=== PATIENT | female | born 1980 | race Caucasian/White ===

== ENCOUNTER → 2016-07-28 | Outpatient (CLI) | payer OTHER ==
[~2016-07-28] MED LIST: EFFE150C PO; FLUO10CA8 PO; GABA-279 PO; IMIT6INJ SC; OMEP20TA PO; TOPA100T8 PO; VENL75CA PO; ZOFR20TA PO
--- NOTE | 2016-07-28 15:45 | REP ---
CT abdomen and pelvis without contrast, 07/28/2016: Indication: Calcium oxalate crystals in urine Comparison: CT abdomen/pelvis 06/30/2016. Findings: Lung bases are clear bilaterally. Visualized portions of the heart and pericardium are normal. Liver, spleen, pancreas, gallbladder, and adrenal glands are normal. Kidneys are without hydronephrosis or obstructing ureteral calculi bilaterally. There is a nonobstructing 2.6 mm calculus within the mid pole right kidney. Stomach and small bowel are within normal limits. Terminal ileum and appendix are without inflammation. There are a few small appendicoliths. Abdominal aorta is of normal course and caliber. There are no pathologically enlarged retroperitoneal nodes. Bladder is normal. The uterus is absent. Previous 3.3 cm right ovarian cyst is smaller, now 1.8 cm diameter. There is no free fluid in cul-de-sac and no free intraperitoneal air. There is moderate retained colonic stool. Impression: 1. Nonobstructing 2.6 mm calculus within the right kidney. No hydronephrosis or obstructing ureteral calculi bilaterally. 2. There are a few appendicoliths yet no evidence of appendiceal inflammation. 3. No acute intra-abdominal or pelvic s pathology. Signed by Lucy Fields MD 07/28/2016 08:34 P
== END ==
LOC: M RAD 08:24
PROVIDERS: ATTEND Internal Medicine
DX: R30.0 Dysuria (principal)

== ENCOUNTER 2016-08-04 11:24 | Emergency (ER) | payer OTHER ==
[2016-08-04] MEDS ORDERED: NAPROXEN 250 MG TAB As Ordered ONE (12:06)
[2016-08-04] MEDS ORDERED: predniSONE 20 MG TAB As Ordered ONE (12:07)
--- NOTE | 2016-08-04 12:59 | REP ---
Clinical: Trauma. Comparison: 08/11/2007 . Technique: AP, lateral, bilateral oblique, and coned-down views. Findings: Alignment and lordosis is maintained. The vertebral bodies including transverse process and spinous processes are intact and normal. There is no evidence for acute fracture / compression injury or subluxation. No evidence for spondylolysis or spondylolisthesis. No significant degenerative change is noted. Impression: Normal lumbosacral spine radiograph series. Signed by Kwabena Duncan MD 08/04/2016 12:50 P
--- NOTE | 2016-08-04 13:22 | EDDOCDS ---
Physician Documentation [facility] Name: Seema Valenzuela Age: 36 yrs Sex: Female : 1980 Arrival Date: 08/04/2016 Time: 11:24 Bed TR2 Private MD: Elmer Decker Disposition: 08/04/16 13:04 Discharged to Home/Self Care. Impression: Low back pain - Acute, Sciatica, right side. - Condition is Stable. - Discharge Instructions: Sciatica, Back Pain, Adult, [id number]. - Prescriptions for Mobic 7.5 mg Oral Tablet - take 1 tablet by ORAL route once daily take with food; 20 tablet. Prednisone 20 mg Oral Tablet - take 3 tablet by ORAL route once daily for 5 days; 15 tablet. Cyclobenzaprine 10 mg Oral Tablet - take 1 tablet by ORAL route 3 times per day As needed Will cause drowsiness, do not take while driving/operating heavy machinery.; 15 tablet. Percocet 5- 325 mg Oral Tablet - take 1 tablet by ORAL route every 6 hours As needed MDD: 4 tabs; 10 tablet. - Medication Reconciliation, Local Pharmacy Hours form. - Follow up: [facility]; When: Call to arrange an appointment; Reason: Further diagnostic work-up, Recheck today's complaints, Continuance of care. Follow up: Elmer Decker; When: 1 - 2 days; Reason: Recheck today's complaints, Continuance of care. Follow up: Emergency Department; Reason: Worsening of conditions. - Problem is new. - Symptoms have improved. Historical: - Allergies: no known allergies; - Home Meds: 1. verapamil Unknown Oral 2. pantoprazole oral 1 tab once daily 3. topiramate oral once daily 4. sumatriptan succinate 6 mg/0.5 mL Sub-Q pnij as needed - PMHx: Anxiety; GERD; Migraines; Depression; - PSHx: Hysterectomy; - Social history: Smoking status: Patient uses tobacco products, heavy tobacco smoker. No barriers to communication noted, The patient speaks fluent Indonesian, Speaks appropriately for age. - Family history: Not pertinent. - : The pt / caregiver states he / she is not on anticoagulants. Home medication list is obtained from the patient. - Exposure Risk Screening:: None identified. 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 4 in. (162.56 cm) (R); Pain 04/04; 13:16 BP 123 / 67; Pulse 82; Resp 18; Temp 97.6(O); Pulse Ox 98% on R/A; dwg 11:26 Body Mass Index 21.97 (58.06 kg, 162.56 cm) ct3 MDM: 12:01 Naproxen 500 mg PO once; administer with food or milk ordered. ef1 12:01 Ice Pack ordered. ef1 12:01 predniSONE 60 mg PO once; administer with food or milk ordered. ef1 12:02 Spine. Lumbosacral, Complete Ordered. EDNY 12:14 Financial registration complete. mm15 12:40 [facility] Payment Agreement was scanned into [employer] and attached to record. mm15 Administered Medications: 12:14 Drug: Naproxen 500 mg [naproxen 250 mg tablet (2 tabs)] Route: PO; dwg 13:17 Follow up: Response: Pain is decreased dwg 12:14 Drug: predniSONE 60 mg [prednisone 20 mg tablet (3 tabs)] Route: PO; dwg 13:17 Follow up: Response: Pain is decreased dw Signatures: Dispatcher [employer] EDNY Terrence Stinson RN RN dwg Jennifer Beatty PA-C PARuizC ef1 Katelyn Norris RN RN hs1 Eusebio Mcclendon mm15 The chart was reviewed and I authenticate all verbal orders and agree with the evaluation and treatment provided.Corrections: (The following items were deleted from the chart) 11:33 11:32 Allergies: no known allergies; hs1 hs1 11:33 11:32 PSHx: none; hs1 hs1 Attachments: 12:40 [facility] Payment Agreement mm15 MTDD
--- NOTE | 2016-08-04 13:22 | EDDOCDS ---
Nurse's Notes [facility] Name: Seema Valenzuela Age: 36 yrs Sex: Female : 1980 Arrival Date: 08/04/2016 Time: 11:24 Bed TR2 Private MD: Elmer Decker Diagnosis: Low back pain-Acute;Sciatica, right side Presentation: 08/04 11:30 Presenting complaint: Patient states: injury to back on Wednesday. 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 Acute neurological deficits are not present. Mechanism of Injury: Fall and Lifting. Adult Sepsis Screening: The patient does not have new or worsening altered mentation. Patient's respiratory rate is less than 22. Systolic blood pressure is greater than 100. Patient has a qSOFA score of 0- Negative Sepsis Screen. Suicide/Homicide risk assessment- the patient denies having any suicidal and/or homicidal ideations and does not present with any other emotional, behavioral or mental health complaints. Status: Patient is not a shared services manager or dependent. Transition of care: patient was not received from another setting of care. 11:30 Acuity: TIARA Level 4 hs1 11:30 Method Of Arrival: Walkin/Carried/Asstd hs1 Triage Assessment: 11:33 General: Appears in no apparent distress, Behavior is appropriate for age, cooperative. hs1 Pain: Location: right low back Pain currently is 9 out of 10 on a pain scale. Pain radiates to right gluteus emerson and right leg Quality of pain is described as sharp, shooting. HIV screening NA for this visit Offered previously. Neurological: Level of Consciousness is awake, alert, obeys commands. Derm: Skin is pink, warm & dry. normal. Musculoskeletal: Range of motion intact in all extremities. 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 verapamil Unknown Oral 2. pantoprazole oral 1 tab once daily 3. topiramate oral once daily 4. sumatriptan succinate 6 mg/0.5 mL Sub-Q pnij as needed - PMHx: Anxiety; GERD; Migraines; Depression; - PSHx: Hysterectomy; - Social history: Smoking status: Patient uses tobacco products, heavy tobacco smoker. No barriers to communication noted, The patient speaks fluent Norwegian, Speaks appropriately for age. - Family history: Not pertinent. - : The pt / caregiver states he / she is not on anticoagulants. Home medication list is obtained from the patient. - Exposure Risk Screening:: None identified. Screenin:16 Screening information is obtained from the patient. Fall risk: No risks identified. dwg Assistance ADL's: requires no assistance with activities of daily living. Abuse/DV Screen: The patient / caregiver reports he/she is: not in a situation that causes fear, pain or injury. Nutritional screening: No deficits noted. Advance Directives: Currently, there is no health care proxy. There is no active DNR order. There is no living will. There is no Power of Accounts Payable Administrator. Advance directive information has not previously been placed in an [facility] medical record. Further advance directive information is declined. home support is adequate. Assessment: 12:14 General: Appears in no apparent distress, uncomfortable, Behavior is cooperative, dwg pleasant. Pain: Pain currently is 7 out of 10 on a pain scale. Neurological: Level of Consciousness is awake, alert, Oriented to person, place, time. Respiratory: Airway is patent Respiratory effort is even, unlabored, Respiratory pattern is regular, symmetrical. Musculoskeletal: Reports pain in lumbar area, left low back and right low back Low back pain since falling Wednesday, also heavy lifting on Wednesday and Wednesday. Vital Signs: 11:26 BP 113 / 79; Pulse 88; Resp 18; Temp 97.8(O); Pulse Ox 100% on R/A; Weight 58.06 kg ct3 (R); Height 5 ft. 4 in. (162.56 cm) (R); Pain 9/10; 13:16 BP 123 / 67; Pulse 82; Resp 18; Temp 97.6(O); Pulse Ox 98% on R/A; dwg 11:26 Body Mass Index 21.97 (58.06 kg, 162.56 cm) ct3 Vitals: 11:26 Log In Time: August 04, 2016 at 11:23. ct3 ED Course: 11:25 Patient visited by Dacia Das PCA. ct3 11:25 Elmer Decker MD is Private Physician. ct3 11:25 Patient moved to Waiting ct3 11:26 Patient moved to Pre RCE ct3 11:31 Triage Initiated hs1 11:54 [facility] ef1 11:54 Sherine Flowers MD is Attending Physician. ef1 11:54 Patient visited by Jennifer Beatty PA-C. ef1 11:54 Patient moved to Triage 3 ms18 12:13 Patient moved to TR2 ms18 12:40 [facility] Payment Agreement was scanned into [employer] and attached to record. mm15 13:00 Patient visited by Jennifer Beatty PA-C. ef1 13:04 [facility]. ef1 13:04 Elmer Decker MD is Referral Physician. ef1 13:16 Spine. Lumbosacral, Complete Returned. EDMS 13:19 No IV's were initiated during this patient's visit. No procedures done that require dwg assistance. 13:20 The patient / caregiver is instructed regarding the plan of care and ED course. dwg Administered Medications: 12:14 Drug: Naproxen 500 mg [naproxen 250 mg tablet (2 tabs)] Route: PO; dwg 13:17 Follow up: Response: Pain is decreased dwg 12:14 Drug: predniSONE 60 mg [prednisone 20 mg tablet (3 tabs)] Route: PO; dwg 13:17 Follow up: Response: Pain is decreased dwg Order Results: Radiology Order: Spine. Lumbosacral, Complete Test: Spine. Lumbosacral, Complete REASON FOR EXAMINATION: Trauma; Clinical: Trauma.; ; Comparison: 08/11/2007 .; ; Technique: AP, lateral, bilateral oblique, and coned-down views.; ; Findings: Alignment and lordosis is maintained. The vertebral bodies including; transverse process and spinous processes are intact and normal. There is no; evidence for acute fracture / compression injury or subluxation. No evidence for; spondylolysis or spondylolisthesis. No significant degenerative change is; noted.; ; Impression:; Normal lumbosacral spine radiograph series.; ; ; Signed by; Kwabena Duncan MD 08/04/2016 12:50 P; Outcome: 13:04 Discharge ordered by Provider. ef1 13:18 Discharge Assessment: Patient awake, alert and oriented x 3. No cognitive and/or dwg functional deficits noted. Patient verbalized understanding of disposition instructions. patient administered narcotics - no. The following High Risk Discharge criteria are identified: None. Condition: good Condition: stable. No special radiology studies were completed. 13:19 Property sent home with patient. [facility] 13:21 Patient left the ED. [facility] Signatures: Dispatcher [employer] EDTerrence Arteaga, GRACE RN dwg Jennifer Beatty, PARuizC PA-C ef1 Katelyn Norris RN RN hs1 Dacia Das, DIANA MALLET CUTTER ct3 Eusebio Mcclendon mm15 Francy Villeda RN RN ms18 Corrections: (The following items were deleted from the chart) 11:33 11:32 Allergies: no known allergies; hs1 hs1 :33 11:32 PSHx: none; hs1 hs1 MTDD
--- NOTE | 2016-08-06 14:22 | EDDOCDS ---
Nurse's Notes [facility] Name: Seema Valenzuela Age: 36 yrs Sex: Female : 1980 Arrival Date: 08/04/2016 Time: 11:24 Bed TR2 Private MD: Elmer Decker Diagnosis: Low back pain-Acute;Sciatica, right side Presentation: 08/04 11:30 Presenting complaint: Patient states: injury to back on Wednesday. 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 Acute neurological deficits are not present. Mechanism of Injury: Fall and Lifting. Adult Sepsis Screening: The patient does not have new or worsening altered mentation. Patient's respiratory rate is less than 22. Systolic blood pressure is greater than 100. Patient has a qSOFA score of 0- Negative Sepsis Screen. Suicide/Homicide risk assessment- the patient denies having any suicidal and/or homicidal ideations and does not present with any other emotional, behavioral or mental health complaints. Status: Patient is not a neighborhood service center director or dependent. Transition of care: patient was not received from another setting of care. 11:30 Acuity: TIARA Level 4 hs1 11:30 Method Of Arrival: Walkin/Carried/Asstd hs1 Triage Assessment: 11:33 General: Appears in no apparent distress, Behavior is appropriate for age, cooperative. hs1 Pain: Location: right low back Pain currently is 9 out of 10 on a pain scale. Pain radiates to right gluteus emerson and right leg Quality of pain is described as sharp, shooting. HIV screening NA for this visit Offered previously. Neurological: Level of Consciousness is awake, alert, obeys commands. Derm: Skin is pink, warm & dry. normal. Musculoskeletal: Range of motion intact in all extremities. 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 verapamil Unknown Oral 2. pantoprazole oral 1 tab once daily 3. topiramate oral once daily 4. sumatriptan succinate 6 mg/0.5 mL Sub-Q pnij as needed - PMHx: Anxiety; GERD; Migraines; Depression; - PSHx: Hysterectomy; - Social history: Smoking status: Patient uses tobacco products, heavy tobacco smoker. No barriers to communication noted, The patient speaks fluent Azerbaijani, Speaks appropriately for age. - Family history: Not pertinent. - : The pt / caregiver states he / she is not on anticoagulants. Home medication list is obtained from the patient. - Exposure Risk Screening:: None identified. Screenin:16 Screening information is obtained from the patient. Fall risk: No risks identified. dwg Assistance ADL's: requires no assistance with activities of daily living. Abuse/DV Screen: The patient / caregiver reports he/she is: not in a situation that causes fear, pain or injury. Nutritional screening: No deficits noted. Advance Directives: Currently, there is no health care proxy. There is no active DNR order. There is no living will. There is no Power of Forest[employer]. Advance directive information has not previously been placed in an [facility] medical record. Further advance directive information is declined. home support is adequate. Assessment: 12:14 General: Appears in no apparent distress, uncomfortable, Behavior is cooperative, dwg pleasant. Pain: Pain currently is 7 out of 10 on a pain scale. Neurological: Level of Consciousness is awake, alert, Oriented to person, place, time. Respiratory: Airway is patent Respiratory effort is even, unlabored, Respiratory pattern is regular, symmetrical. Musculoskeletal: Reports pain in lumbar area, left low back and right low back Low back pain since falling Wednesday, also heavy lifting on Wednesday and Wednesday. Vital Signs: 11:26 BP 113 / 79; Pulse 88; Resp 18; Temp 97.8(O); Pulse Ox 100% on R/A; Weight 58.06 kg ct3 (R); Height 5 ft. 4 in. (162.56 cm) (R); Pain 9/10; 13:16 BP 123 / 67; Pulse 82; Resp 18; Temp 97.6(O); Pulse Ox 98% on R/A; dwg 11:26 Body Mass Index 21.97 (58.06 kg, 162.56 cm) ct3 Vitals: 11:26 Log In Time: August 04, 2016 at 11:23. ct3 ED Course: 11:25 Patient visited by Dacia Das PCA. ct3 11:25 Elmer Decker MD is Private Physician. ct3 11:25 Patient moved to Waiting ct3 11:26 Patient moved to Pre RCE ct3 11:31 Triage Initiated hs1 11:54 [facility] ef1 11:54 Sherine Flowers MD is Attending Physician. ef1 11:54 Patient visited by Jennifer Beatty PA-C. ef1 11:54 Patient moved to Triage 3 ms18 12:13 Patient moved to TR2 ms18 12:40 [facility] Payment Agreement was scanned into [employer] and attached to record. mm15 13:00 Patient visited by Jennifer Beatty PA-C. ef1 13:[facility]. ef1 13:04 Elmer Decker MD is Referral Physician. ef1 13:16 Spine. Lumbosacral, Complete Returned. EDMS 13:19 No IV's were initiated during this patient's visit. No procedures done that require dwg assistance. 13:20 The patient / caregiver is instructed regarding the plan of care and ED course. dwg 14:53 T-Sheet-- Draft Copy was scanned into [employer] and attached to record. gb 14:53 Radiology Report was scanned into [employer] and attached to record. gb Administered Medications: 12:14 Drug: Naproxen 500 mg [naproxen 250 mg tablet (2 tabs)] Route: PO; dwg 13:17 Follow up: Response: Pain is decreased dwg 12:14 Drug: predniSONE 60 mg [prednisone 20 mg tablet (3 tabs)] Route: PO; dwg 13:17 Follow up: Response: Pain is decreased dwg Order Results: Radiology Order: Spine. Lumbosacral, Complete Test: Spine. Lumbosacral, Complete REASON FOR EXAMINATION: Trauma; Clinical: Trauma.; ; Comparison: 08/11/2007 .; ; Technique: AP, lateral, bilateral oblique, and coned-down views.; ; Findings: Alignment and lordosis is maintained. The vertebral bodies including; transverse process and spinous processes are intact and normal. There is no; evidence for acute fracture / compression injury or subluxation. No evidence for; spondylolysis or spondylolisthesis. No significant degenerative change is; noted.; ; Impression:; Normal lumbosacral spine radiograph series.; ; ; Signed by; Kwabena Duncan MD 08/04/2016 12:50 P; Outcome: 13:04 Discharge ordered by Provider. ef1 13:18 Discharge Assessment: Patient awake, alert and oriented x 3. No cognitive and/or dwg functional deficits noted. Patient verbalized understanding of disposition instructions. patient administered narcotics - no. The following High Risk Discharge criteria are identified: None. Condition: good Condition: stable. No special radiology studies were completed. 13:19 Property sent home with patient. dwg 13:21 Patient left the ED. dwg Signatures: Dispatcher [employer] EDTerrence Arteaga, RN RN dwg Tamara Hernandez, Reg Reg Jennifer Lundberg, PA-C PA-C ef1 Katelyn Norris RN RN hs1 Dacia Das, CREDIT COORDINATOR CREDIT COORDINATOR ct3 Eusebio Mcclendon mm15 Francy Villeda,RN RN ms18 Corrections: (The following items were deleted from the chart) 11:33 11:32 Allergies: no known allergies; hs1 hs1 11:33 11:32 PSHx: none; hs1 hs1 Chart Complete MTDD
--- NOTE | 2016-08-06 14:22 | EDDOCDS ---
Physician Documentation [facility] Name: Seema Valenzuela Age: 36 yrs Sex: Female : 1980 Arrival Date: 08/04/2016 Time: 11:24 Bed TR2 Private MD: Elmer eDcker Disposition: 08/04/16 13:04 Discharged to Home/Self Care. Impression: Low back pain - Acute, Sciatica, right side. - Condition is Stable. - Discharge Instructions: Sciatica, Back Pain, Adult, [id number]. - Prescriptions for Mobic 7.5 mg Oral Tablet - take 1 tablet by ORAL route once daily take with food; 20 tablet. Prednisone 20 mg Oral Tablet - take 3 tablet by ORAL route once daily for 5 days; 15 tablet. Cyclobenzaprine 10 mg Oral Tablet - take 1 tablet by ORAL route 3 times per day As needed Will cause drowsiness, do not take while driving/operating heavy machinery.; 15 tablet. Percocet 5- 325 mg Oral Tablet - take 1 tablet by ORAL route every 6 hours As needed MDD: 4 tabs; 10 tablet. - Medication Reconciliation, Local Pharmacy Hours form. - Follow up: [facility]; When: Call to arrange an appointment; Reason: Further diagnostic work-up, Recheck today's complaints, Continuance of care. Follow up: Elmer Decker; When: 1 - 2 days; Reason: Recheck today's complaints, Continuance of care. Follow up: Emergency Department; Reason: Worsening of conditions. - Problem is new. - Symptoms have improved. Historical: - Allergies: no known allergies; - Home Meds: 1. verapamil Unknown Oral 2. pantoprazole oral 1 tab once daily 3. topiramate oral once daily 4. sumatriptan succinate 6 mg/0.5 mL Sub-Q pnij as needed - PMHx: Anxiety; GERD; Migraines; Depression; - PSHx: Hysterectomy; - Social history: Smoking status: Patient uses tobacco products, heavy tobacco smoker. No barriers to communication noted, The patient speaks fluent Danish, Speaks appropriately for age. - Family history: Not pertinent. - : The pt / caregiver states he / she is not on anticoagulants. Home medication list is obtained from the patient. - Exposure Risk Screening:: None identified. 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 4 in. (162.56 cm) (R); Pain 04/04; 13:16 BP 123 / 67; Pulse 82; Resp 18; Temp 97.6(O); Pulse Ox 98% on R/A; dwg 11:26 Body Mass Index 21.97 (58.06 kg, 162.56 cm) ct3 MDM: 12:01 Naproxen 500 mg PO once; administer with food or milk ordered. ef1 12:01 Ice Pack ordered. ef1 12:01 predniSONE 60 mg PO once; administer with food or milk ordered. ef1 12:02 Spine. Lumbosacral, Complete Ordered. EDCA 12:14 Financial registration complete. mm15 12:40 [facility] Payment Agreement was scanned into [employer] and attached to record. mm 14:53 T-Sheet-- Draft Copy was scanned into [employer] and attached to record. gb 14:53 Radiology Report was scanned into [employer] and attached to record. Administered Medications: 12:14 Drug: Naproxen 500 mg [naproxen 250 mg tablet (2 tabs)] Route: PO; [facility] 13:17 Follow up: Response: Pain is decreased [facility] 12:14 Drug: predniSONE 60 mg [prednisone 20 mg tablet (3 tabs)] Route: PO; [facility] 13:17 Follow up: Response: Pain is decreased dw Signatures: Dispatcher [employer] EDMS Terrence Stinson, RN RN dwg Tamara Hernandez, Reg Reg Jennifer Lundberg, PA-C PA-C ef1 Katelyn Norris RN RN hs1 Eusebio Mcclendon mm15 The chart was reviewed and I authenticate all verbal orders and agree with the evaluation and treatment provided.Corrections: (The following items were deleted from the chart) 11:33 11:32 Allergies: no known allergies; hs1 hs1 11:33 11:32 PSHx: none; hs1 hs1 Attachments: 12:40 [facility] Payment Agreement mm15 14:53 T-Sheet-- Draft Copy gb Chart Complete MTDD
--- NOTE | 2016-08-06 14:22 | EDDOCDS ---
Physician Documentation [facility] Name: Seema Valenzuela Age: 36 yrs Sex: Female : 1980 Arrival Date: 08/04/2016 Time: 11:24 Bed TR2 Private MD: Elmer Decker Disposition: 08/04/16 13:04 Discharged to Home/Self Care. Impression: Low back pain - Acute, Sciatica, right side. - Condition is Stable. - Discharge Instructions: Sciatica, Back Pain, Adult, [id number]. - Prescriptions for Mobic 7.5 mg Oral Tablet - take 1 tablet by ORAL route once daily take with food; 20 tablet. Prednisone 20 mg Oral Tablet - take 3 tablet by ORAL route once daily for 5 days; 15 tablet. Cyclobenzaprine 10 mg Oral Tablet - take 1 tablet by ORAL route 3 times per day As needed Will cause drowsiness, do not take while driving/operating heavy machinery.; 15 tablet. Percocet 5- 325 mg Oral Tablet - take 1 tablet by ORAL route every 6 hours As needed MDD: 4 tabs; 10 tablet. - Medication Reconciliation, Local Pharmacy Hours form. - Follow up: [facility]; When: Call to arrange an appointment; Reason: Further diagnostic work-up, Recheck today's complaints, Continuance of care. Follow up: Elmer Decker; When: 1 - 2 days; Reason: Recheck today's complaints, Continuance of care. Follow up: Emergency Department; Reason: Worsening of conditions. - Problem is new. - Symptoms have improved. Historical: - Allergies: no known allergies; - Home Meds: 1. verapamil Unknown Oral 2. pantoprazole oral 1 tab once daily 3. topiramate oral once daily 4. sumatriptan succinate 6 mg/0.5 mL Sub-Q pnij as needed - PMHx: Anxiety; GERD; Migraines; Depression; - PSHx: Hysterectomy; - Social history: Smoking status: Patient uses tobacco products, heavy tobacco smoker. No barriers to communication noted, The patient speaks fluent Persian, Speaks appropriately for age. - Family history: Not pertinent. - : The pt / caregiver states he / she is not on anticoagulants. Home medication list is obtained from the patient. - Exposure Risk Screening:: None identified. 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 4 in. (162.56 cm) (R); Pain 04/04; 13:16 BP 123 / 67; Pulse 82; Resp 18; Temp 97.6(O); Pulse Ox 98% on R/A; dwg 11:26 Body Mass Index 21.97 (58.06 kg, 162.56 cm) ct3 MDM: 12:01 Naproxen 500 mg PO once; administer with food or milk ordered. ef1 12:01 Ice Pack ordered. ef1 12:01 predniSONE 60 mg PO once; administer with food or milk ordered. ef1 12:02 Spine. Lumbosacral, Complete Ordered. EDKS 12:14 Financial registration complete. mm15 12:40 [facility] Payment Agreement was scanned into [employer] and attached to record. mm 14:53 T-Sheet-- Draft Copy was scanned into [employer] and attached to record. gb 14:53 Radiology Report was scanned into [employer] and attached to record. Administered Medications: 12:14 Drug: Naproxen 500 mg [naproxen 250 mg tablet (2 tabs)] Route: PO; [facility] 13:17 Follow up: Response: Pain is decreased [facility] 12:14 Drug: predniSONE 60 mg [prednisone 20 mg tablet (3 tabs)] Route: PO; [facility] 13:17 Follow up: Response: Pain is decreased dw Signatures: Dispatcher Med[employer] EDMS Terrence Stinson, RN RN dwg Tamara Hernandez, Reg Reg Jennifer Lundberg, PA-C PA-C ef1 Katelyn Norris RN RN hs1 Eusebio Mcclendon mm15 The chart was reviewed and I authenticate all verbal orders and agree with the evaluation and treatment provided.Corrections: (The following items were deleted from the chart) 11:33 11:32 Allergies: no known allergies; hs1 hs1 11:33 11:32 PSHx: none; hs1 hs1 Attachments: 12:40 [facility] Payment Agreement mm15 14:53 T-Sheet-- Draft Copy gb Chart Complete MTDD
== END 2016-08-04 13:21 | disposition home or self-care (01) ==
LOC: M ED 11:24
DX: M54.30 Sciatica, unspecified side (principal); F41.9 Anxiety disorder, unspecified; K21.9 Gastro-esophageal reflux disease without esophagitis; G43.909 Migraine, unspecified, not intractable, without status migrainosus; F32.9 Major depressive disorder, single episode, unspecified; F17.210 Nicotine dependence, cigarettes, uncomplicated; Z79.899 Other long term (current) drug therapy

== ENCOUNTER 2016-08-07 19:11 | Emergency (ER) | payer OTHER ==
[2016-08-07] MEDS ORDERED: ONDANSETRON 4MG/2ML VIAL (J2405) As Ordered ONE (21:18)
[2016-08-07] MEDS ORDERED: KETOROLAC 30 MG/ML VIAL (J1885) As Ordered ONE (21:18)
[2016-08-07 21:34] LABS: BASO % 0.2 % (0.0-1.0); CONTROL LINE UCG INT CTR LINE PRESENT; EOS # 0.1 K/mm3 (0.0-0.50); EOS % 0.9 % (0.0-3.0); LARGE UNSTAINED CELL # 0.2 K/mm3 (0.0-0.4); LARGE UNSTAINED CELL % 1.6 % (0.0-4.0); LYMPH # 2.8 K/mm3 (1.5-4.5); LYMPH % 22.8 % (24.0-44.0); MEAN CORPUSCULAR HEMOGLOBIN 32.5 pg (27.0-33.0); MEAN CORPUSCULAR VOLUME 98.5 fl (80.0-96.0); MONO # 0.6 K/mm3 (0.0-0.8); NEUTROPHILS # 8.6 K/mm3 (1.8-7.7); NEUTROPHILS % 69.6 % (36.0-66.0); PLATELET COUNT, AUTOMATED 192 k/mm3 (150-450); WHITE BLOOD COUNT 12.3 K/mm3 (4.0-10.0)
[2016-08-07 21:44] LABS: ALBUMIN/GLOBULIN RATIO 1.25 (1.00-1.93); ALKALINE PHOSPHATASE 50 U/L (45-117); ALT/SGPT 21 U/L (12-78); ANION GAP 7 MEQ/L (8-16); AST/SGOT 11 U/L (15-37); BILIRUBIN,DIRECT 0.1 MG/DL (0.0-0.2); BILIRUBIN,TOTAL 0.3 MG/DL (0.2-1.0); BLOOD UREA NITROGEN 17 MG/DL (7-18); CALCIUM LEVEL 8.6 MG/DL (8.5-10.1); CARBON DIOXIDE LEVEL 24 MEQ/L (21-32); CHLORIDE LEVEL 113 MEQ/L (98-107); CREATININE FOR GFR 0.75 MG/DL (0.55-1.02); GLOMERULAR FILTRATION RATE > 60.0 (>60); GLUCOSE, FASTING 87 MG/DL (70-105); POTASSIUM SERUM 3.3 MEQ/L (3.5-5.1); SODIUM LEVEL 144 MEQ/L (136-145); TOTAL PROTEIN 7.2 GM/DL (6.4-8.2)
[2016-08-07] MEDS ORDERED: ISOVUE-370 76% 100ML VIAL (Q9967) As Ordered ONE (22:21)
--- NOTE | 2016-08-07 23:00 | REPUSA ---
CT of the abdomen and pelvis with contrast Clinical statement: Pain. Technique: Multiple axial CT images were obtained from the base of the lungs through the floor of the pelvis utilizing 5 mm axial slices after administration of nonionic intravenous contrast. Coronal an d sagittal reconstructions were also obtained. Comparison: 07/28/2016. Findings: Chest: The visualized lung bases are clear. Abdomen: The liver, spleen, pancreas, kidneys, gallbladder, and adrenal glands are unremarkable. The aorta is within normal limits. There is no evidence of abdominal lymphadenopathy or ascites. Pelvis: Moderate amount of stool fills the colon.The bowel is otherwise unremarkable, with no obstruc tive or inflammatory changes. The appendix is normal. The urinary bladder is within normal limits. Th ere is a small right ovarian cyst measuring 2.1 x 1.2 cm. The other pelvic structures appear grossly intact. There is no evidence of pelvic lymphadenopathy or ascites. Bones: There are no suspicious osseous abnormalities seen. Impression: 1. Mild constipation. No obstructive or inflammatory bowel changes. 2. Small right ovarian cyst.
[2016-08-07] MEDS ORDERED: POTASSIUM CHLORIDE 10 MEQ SR TABLET As Ordered ONE (23:13)
[2016-08-07] MEDS ORDERED: MAGNESIUM CITRATE 300 ML BTL As Ordered ONE (23:13)
--- NOTE | 2016-08-07 23:31 | EDDOCDS ---
Physician Documentation [facility] Name: Seema Valenzuela Age: 36 yrs Sex: Female : 1980 Arrival Date: 08/07/2016 Time: 19:11 Bed I4 / M4 Private MD: Elmer Decker Disposition: 08/07/16 23:08 Discharged to Home/Self Care. Impression: Lower abdominal pain, unspecified, Hypokalemia, Constipation. - Condition is Stable. - Discharge Instructions: Abdominal Pain, Adult, Constipation, Adult, Potassium Content of Foods. - Medication Reconciliation, Local Pharmacy Hours form. - Follow up: Elmer Dceker MD; When: Call to arrange an appointment; Reason: Recheck today's complaints, Continuance of care. - Problem is new. - Symptoms have improved. Historical: - Allergies: No known drug Allergies; - Home Meds: 1. pantoprazole oral 1 tab once daily 2. sumatriptan succinate 6 mg/0.5 mL Sub-Q pnij as needed 3. topiramate 250mg oral once daily 4. verapamil 40 mg oral tab 1 tab Daily - PMHx: Anxiety; Depression; GERD; Migraines; - PSHx: Hysterectomy; - Social history: Smoking status: No barriers to communication noted, The patient speaks fluent Colombian, Speaks appropriately for age. - Family history: Not pertinent. - : The pt / caregiver states he / she is not on anticoagulants. Home medication list is obtained from the patient. - Exposure Risk Screening:: None identified. 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 4 in. (162.56 cm) (R); 23:16 BP 107 / 67; Pulse 77; Resp 18; Temp 97.8; Pulse Ox 97% ; Pain 5/10; ajs 19:13 Body Mass Index 22.31 (58.97 kg, 162.56 cm) dd6 MDM: 21:04 NS 0.9% 1000 ml IV at bolus once ordered. mo1 21:04 Ondansetron 4 mg IVP once ordered. mo1 21:04 ketorolac 30 mg IVP once ordered. mo1 21:04 IV Saline Lock ordered. mo1 21:04 Undress patient appropriately for examination ordered. mo1 21:05 Basic Metabolic Profile Ordered. EDMS 21:05 CBC with Diff Ordered. EDMS 21:05 Lipase Ordered. EDMS 21:05 Liver Profile Ordered. EDMS 21:05 Urinalysis Ordered. EDMS 21:05 Urine Test-In Lab Ordered. EDMS 21:06 Urine Culture Ordered. EDMS 21:07 NOTHING BY MOUTH+DIET ordered. EDMS 21:26 Financial registration complete. zo 21:26 [facility] Payment Agreement was scanned into [employer] and attached to record. zo 21:43 CBC with Diff Reviewed. mo1 21:44 Urinalysis Reviewed. mo1 21:44 Urine Test-In Lab Reviewed. mo1 21:47 Liver Profile Reviewed. mo1 21:47 Basic Metabolic Profile Reviewed. mo1 21:47 Lipase Reviewed. mo1 21:48 CT ABD & PELVIS: IV Contrast Only Ordered. EDMS 23:07 Magnesium Citrate Liquid 300 ml PO once; Dispense home with pt. ordered. mo1 23:09 Potassium Chloride Extended Release Tablet 40 mEq PO once ordered. mo1 Administered Medications: 21:38 Drug: NS 0.9% 1000 ml [sodium chloride 0.9 % intravenous solution] Route: IV; Rate: af2 bolus; Site: right antecubital; 23:28 Follow up: IV Status: Completed infusion slm 21:38 Drug: Ondansetron 4 mg [ondansetron HCl 2 mg/mL intravenous solution (2 mL)] Route: af2 IVP; Site: right antecubital; 21:38 Drug: ketorolac 30 mg [ketorolac 30 mg/mL (1 mL) injection solution (1 mL)] Route: IVP; af2 Site: right antecubital; 23:26 Drug: Magnesium Citrate 300 ml [magnesium citrate oral solution (300 mL)] {Note: home slm with pt.} Route: PO; 23:26 Drug: Potassium Chloride 40 mEq [potassium chloride ER 10 mEq tablet,extended release slm (4 tabs)] Route: PO; Signatures: Dispatcher MedHost EDMS Little Mane RN RN jo3 Gricel Dunham Michael, PA PA mo1 Ana Bowman LPN EDGING MACHINE SETTER Dorothy Ball RN af2 The chart was reviewed and I authenticate all verbal orders and agree with the evaluation and treatment provided.Attachments: 21:26 [facility] Payment Agreement zo MTDD
--- NOTE | 2016-08-07 23:32 | EDDOCDS ---
Nurse's Notes [facility] Name: Seema Valenzuela Age: 36 yrs Sex: Female : 1980 Arrival Date: 08/07/2016 Time: 19:11 Bed I4 / M4 Private MD: Elmer Decker Diagnosis: Lower abdominal pain, unspecified;Hypokalemia;Constipation Presentation: 08/07 19:15 Presenting complaint: Patient states: Severe left sided abdominal pain that started 1 jo3 week ago. Pt also c/o some vomiting. Was seen at Dr Decker's office and was told she had a small stone in her kidney and she was full of stool. Pain seems to be getting worse. Risk factors: the patient reports no vaginal bleeding. Adult Sepsis Screening: The patient does not have new or worsening altered mentation. Patient's respiratory rate is less than 22. Systolic blood pressure is greater than 100. Patient has a qSOFA score of 0- Negative Sepsis Screen. Suicide/Homicide risk assessment- the patient denies having any suicidal and/or homicidal ideations and does not present with any other emotional, behavioral or mental health complaints. Status: Patient is not a service liaison representative or dependent. Transition of care: patient was not received from another setting of care. 19:15 Acuity: TIARA Level 3 jo3 19:15 Method Of Arrival: Walkin/Carried/Asstd jo3 Triage Assessment: 19:19 General: Appears in no apparent distress, uncomfortable, Behavior is appropriate for jo3 age, cooperative. Pain: Pain currently is 10 out of 10 on a pain scale. HIV screening NA for this visit Offered previously. Neurological: No deficits noted. Respiratory: Airway is patent Respiratory effort is even, unlabored. Derm: Skin is pink, warm & dry. 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 pantoprazole oral 1 tab once daily 2. sumatriptan succinate 6 mg/0.5 mL Sub-Q pnij as needed 3. topiramate 250mg oral once daily 4. verapamil 40 mg oral tab 1 tab Daily - PMHx: Anxiety; Depression; GERD; Migraines; - PSHx: Hysterectomy; - Social history: Smoking status: No barriers to communication noted, The patient speaks fluent Egyptian, Speaks appropriately for age. - Family history: Not pertinent. - : The pt / caregiver states he / she is not on anticoagulants. Home medication list is obtained from the patient. - Exposure Risk Screening:: None identified. Screenin:50 Screening information is obtained from the patient. Fall risk: No risks identified. af2 Assistance ADL's: requires no assistance with activities of daily living. Abuse/DV Screen: The patient / caregiver reports he/she is: not in a situation that causes fear, pain or injury. Nutritional screening: No deficits noted. Advance Directives: Currently, there is no health care proxy. home support is adequate. Assessment: 21:45 General: Appears in no apparent distress, Behavior is cooperative. Neurological: Level af2 of Consciousness is awake, alert, obeys commands, Oriented to person, place, time. Respiratory: Airway is patent Respiratory effort is even, unlabored. GI: Abdomen is non- distended Bowel sounds present X 4 quads. Abd is tender to palpation in left upper quadrant and left lower quadrant Reports lower abdominal pain, upper abd pain. Derm: Skin is pink, warm & dry. 22:44 General: Appears in no apparent distress, Behavior is cooperative. Neurological: Level af2 of Consciousness is awake, alert. Respiratory: Airway is patent Respiratory effort is even, unlabored. Derm: Skin is pink, warm & dry. 22:48 General: To CT and back. IV patent and infusing well--site without any signs of mcp infiltration. 23:27 Reassessment: Patient appears in no apparent distress at this time. General: Appears in slm no apparent distress, Behavior is cooperative. Vital Signs: 19:13 BP 118 / 81; Pulse 92; Resp 18 S; Temp 97.9; Pulse Ox 100% on R/A; Weight 58.97 kg (R); dd6 Height 5 ft. 4 in. (162.56 cm) (R); 23:16 BP 107 / 67; Pulse 77; Resp 18; Temp 97.8; Pulse Ox 97% ; Pain 5/10; ajs 19:13 Body Mass Index 22.31 (58.97 kg, 162.56 cm) dd6 Vitals: 19:13 Log In Time: August 07, 2016 at 19:11. dd6 ED Course: 19:12 Patient visited by Arturo Antonio, DIANA. dd6 19:12 Elmer Decker MD is Private Physician. dd6 19:12 Patient moved to Waiting dd6 19:13 Patient moved to Pre RCE dd6 19:18 Triage Initiated jo3 19:21 Patient visited by Little Mane,GRACE. jo3 20:26 Patient moved to Triage 3 jmb 20:34 Patient visited by Ne Trotter PCA. jb5 20:44 Freddy Srivastava PA is PHCP. mo1 20:44 Armani Matute DO is Attending Physician. mo1 20:47 Patient visited by Freddy Srivastava PA. mo1 21:02 Patient moved to I4 / M4 jmb 21:16 Basic Metabolic Profile Sent. af2 21:16 CBC with Diff Sent. af2 21:16 Lipase Sent. af2 21:16 Urine Test-In Lab Sent. af2 21:16 Urinalysis Sent. af2 21:16 Liver Profile Sent. af2 21:16 Urine Culture Sent. af2 21:26 [facility] Payment Agreement was scanned into [employer] and attached to record. zo 21:38 Patient visited by Dorothy Arnold RN. af2 21:49 The patient / caregiver is instructed regarding the plan of care and ED course. Patient af2 has correct armband on for positive identification. Placed in gown. 21:49 Inserted saline lock: 20 gauge in right antecubital area and blood collected. The af2 patient tolerated the procedure well. 21:50 Patient visited by Dorothy Arnold RN. af2 22:02 Patient visited by Dorothy Arnold RN. af2 22:34 Patient visited by Dorothy Arnold RN. af2 22:44 Patient visited by Dorothy Arnold RN. af2 22:49 Patient visited by Sheila Easton RN. mcp 23:01 CT ABD & PELVIS: IV Contrast Only Returned. EDMS 23:08 Elmer Decker MD is Referral Physician. mo1 23:17 Patient visited by Faby Cotter. ajs 23:26 Discontinued lock intact, bleeding controlled, pressure dressing applied. No procedures slm done that require assistance. 23:30 Patient visited by Ana Bowman LPN. slm Administered Medications: 21:38 Drug: NS 0.9% 1000 ml [sodium chloride 0.9 % intravenous solution] Route: IV; Rate: af2 bolus; Site: right antecubital; 23:28 Follow up: IV Status: Completed infusion slm 21:38 Drug: Ondansetron 4 mg [ondansetron HCl 2 mg/mL intravenous solution (2 mL)] Route: af2 IVP; Site: right antecubital; 21:38 Drug: ketorolac 30 mg [ketorolac 30 mg/mL (1 mL) injection solution (1 mL)] Route: IVP; af2 Site: right antecubital; 23:26 Drug: Magnesium Citrate 300 ml [magnesium citrate oral solution (300 mL)] {Note: home slm with pt.} Route: PO; 23:26 Drug: Potassium Chloride 40 mEq [potassium chloride ER 10 mEq tablet,extended release slm (4 tabs)] Route: PO; Order Results: Lab Order: Basic Metabolic Profile; SPEC'M 08/07/16 21:13 Test: GLUCOSE, FASTING; Value: 87; Range: 70-105; Units: MG/DL; Status: F Test: BLOOD UREA NITROGEN; Value: 17; Range: 7-18; Units: MG/DL; Status: F Test: CREATININE FOR GFR; Value: 0.75; Range: 0.55-1.02; Units: MG/DL; Status: F Test: GLOMERULAR FILTRATION RATE; Value: > 60.0; Range: >60; Status: F Test: SODIUM LEVEL; Value: 144; Range: 136-145; Units: MEQ/L; Status: F Test: POTASSIUM SERUM; Value: 3.3; Range: 3.5-5.1; Abnormal: Below low normal; Units: MEQ/L; Status: F Test: CHLORIDE LEVEL; Value: 113; Range: 98-107; Abnormal: Above high normal; Units: MEQ/L; Status: F Test: CARBON DIOXIDE LEVEL; Value: 24; Range: 21-32; Units: MEQ/L; Status: F Test: ANION GAP; Value: 7; Range: 8-16; Abnormal: Below low normal; Units: MEQ/L; Status: F Test: CALCIUM LEVEL; Value: 8.6; Range: 8.5-10.1; Units: MG/DL; Status: F Test Note: ; Units are mL/min/1.73 m2 Chronic Kidney Disease Staging per NKF: Stage I & II GFR >=60 Normal to Mildly Decreased Stage III GFR 30-59 Moderately Decreased Stage IV GFR 15-29 Severely Decreased Stage V GFR <15 Very Little GFR Left ESRD GFR <15 on TIRE CORD WEAVER Lab Order: CBC with Diff; SPEC'M 08/07/16 21:13 Test: WHITE BLOOD COUNT; Value: 12.3; Range: 4.0-10.0; Abnormal: Above high normal; Units: K/mm3; Status: F Test: RED BLOOD COUNT; Value: 4.04; Range: 4.00-5.40; Units: M/mm3; Status: F Test: HEMOGLOBIN; Value: 13.1; Range: 12.0-16.0; Units: g/dl; Status: F Test: HEMATOCRIT; Value: 39.8; Range: 36.0-47.0; Units: %; Status: F Test: MEAN CORPUSCULAR VOLUME; Value: 98.5; Range: 80.0-96.0; Abnormal: Above high normal; Units: fl; Status: F Test: MEAN CORPUSCULAR HEMOGLOBIN; Value: 32.5; Range: 27.0-33.0; Units: pg; Status: F Test: MEAN CORPUSCULAR HGB CONC; Value: 33.0; Range: 32.0-36.5; Units: g/dl; Status: F Test: RED CELL DISTRIBUTION WIDTH; Value: 13.0; Range: 11.5-14.5; Units: %; Status: F Test: PLATELET COUNT, AUTOMATED; Value: 192; Range: 150-450; Units: k/mm3; Status: F Test: NEUTROPHILS %; Value: 69.6; Range: 36.0-66.0; Abnormal: Above high normal; Units: %; Status: F Test: LYMPH %; Value: 22.8; Range: 24.0-44.0; Abnormal: Below low normal; Units: %; Status: F Test: MONO %; Value: 5.0; Range: 0.0-5.0; Units: %; Status: F Test: EOS %; Value: 0.9; Range: 0.0-3.0; Units: %; Status: F Test: BASO %; Value: 0.2; Range: 0.0-1.0; Units: %; Status: F Test: LARGE UNSTAINED CELL %; Value: 1.6; Range: 0.0-4.0; Units: %; Status: F Test: NEUTROPHILS #; Value: 8.6; Range: 1.8-7.7; Abnormal: Above high normal; Units: K/mm3; Status: F Test: LYMPH #; Value: 2.8; Range: 1.5-4.5; Units: K/mm3; Status: F Test: MONO #; Value: 0.6; Range: 0.0-0.8; Units: K/mm3; Status: F Test: EOS #; Value: 0.1; Range: 0.0-0.50; Units: K/mm3; Status: F Test: BASO #; Value: 0.0; Range: 0.0-0.2; Units: K/mm3; Status: F Test: LARGE UNSTAINED CELL #; Value: 0.2; Range: 0.0-0.4; Units: K/mm3; Status: F Lab Order: Lipase; SPEC'M 08/07/16 21:13 Test: LIPASE; Value: 156; Range: 73-393; Units: U/L; Status: F Lab Order: Liver Profile; SPEC'M 08/07/16 21:13 Test: AST/SGOT; Value: 11; Range: 15-37; Abnormal: Below low normal; Units: U/L; Status: F Test: ALT/SGPT; Value: 21; Range: 12-78; Units: U/L; Status: F Test: ALKALINE PHOSPHATASE; Value: 50; Range: 45-117; Units: U/L; Status: F Test: BILIRUBIN,TOTAL; Value: 0.3; Range: 0.2-1.0; Units: MG/DL; Status: F Test: BILIRUBIN,DIRECT; Value: 0.1; Range: 0.0-0.2; Units: MG/DL; Status: F Test: TOTAL PROTEIN; Value: 7.2; Range: 6.4-8.2; Units: GM/DL; Status: F Test: ALBUMIN; Value: 4.0; Range: 3.2-5.2; Units: GM/DL; Status: F Test: ALBUMIN/GLOBULIN RATIO; Value: 1.25; Range: 1.00-1.93; Status: F Lab Order: Urinalysis; SPEC'M 08/07/16 21:13 Test: APPEARANCE, URINE; Value: HAZY; Range: CLEAR; Status: F Test: COLOR, URINE; Value: YELLOW; Range: YELLOW; Status: F Test: PH,URINE; Value: 5.0; Range: 5.0-9.0; Units: UNITS; Status: F Test: SPECIFIC GRAVITY URINE AUTO; Value: 1.018; Range: 1.002-1.035; Status: F Test: PROTEIN, URINE AUTO; Value: NEGATIVE; Range: NEGATIVE; Units: mg/dL; Status: F Test: GLUCOSE, URINE (UA) AUTO; Value: NEGATIVE; Range: NEGATIVE; Units: mg/dL; Status: F Test: KETONE, URINE AUTO; Value: TRACE; Range: NEGATIVE; Abnormal: Above high normal; Units: mg/dL; Status: F Test: UROBILINOGEN, URINE AUTO; Value: 0.2; Range: 0.0-2.0; Units: mg/dL; Status: F Test: BILIRUBIN, URINE AUTO; Value: NEGATIVE; Range: NEGATIVE; Status: F Test: NITRITE, URINE AUTO; Value: NEGATIVE; Range: NEGATIVE; Status: F Test: LEUKOCYTE ESTERASE, URINE AUTO; Value: NEGATIVE; Range: NEGATIVE; Status: F Test: BLOOD, URINE BLOOD; Value: 1+; Range: NEGATIVE; Abnormal: Above high normal; Status: F Test: SPERM, URINE AUTO; Range: NONE; Status: I Test: WBC, URINE AUTO; Value: 2; Range: 0-3; Units: /HPF; Status: F Test: RBC, URINE AUTO; Value: 9; Range: 0-3; Abnormal: Above high normal; Units: /HPF; Status: F Test: BACTERIA, URINE AUTO; Value: 1+; Range: NEGATIVE; Abnormal: Above high normal; Status: F Test: SQUAMOUS EPITHELIAL CELL UR AU; Value: 4; Range: 0-6; Units: /HPF; Status: F Test: MUCUS, URINE; Value: SMALL; Range: NEGATIVE; Status: F Test: HYALINE CAST, URINE AUTO; Value: 0; Range: 0-1; Units: /LPF; Status: F Lab Order: Urine Test-In Lab; SPEC'M 08/07/16 21:13 Test: URINE PREG TEST; Value: NEGATIVE; Range: NEGATIVE; Status: F Radiology Order: CT ABD & PELVIS: IV Contrast Only Test: CT ABD & PELVIS: IV Contrast Only REASON FOR EXAMINATION: Diverticulitis; ; CT of the abdomen and pelvis with contrast; Clinical statement: Pain.; Technique: Multiple axial CT images were obtained from the base of the lungs through the floor of the; pelvis utilizing 5 mm axial slices after administration of nonionic intravenous contrast. Coronal an; d sagittal reconstructions were also obtained.; Comparison: 07/28/2016.; Findings:; Chest: The visualized lung bases are clear.; Abdomen: The liver, spleen, pancreas, kidneys, gallbladder, and adrenal glands are unremarkable. The; aorta is within normal limits. There is no evidence of abdominal lymphadenopathy or ascites.; Pelvis: Moderate amount of stool fills the colon.The bowel is otherwise unremarkable, with no obstruc; tive or inflammatory changes. The appendix is normal. The urinary bladder is within normal limits. Th; ere is a small right ovarian cyst measuring 2.1 x 1.2 cm. The other pelvic structures appear grossly; intact. There is no evidence of pelvic lymphadenopathy or ascites.; Bones: There are no suspicious osseous abnormalities seen.; Impression:; 1. Mild constipation. No obstructive or inflammatory bowel changes.; 2. Small right ovarian cyst.; ; Outcome: 23:08 Discharge ordered by Provider. mo1 23:28 Discharge Assessment: Patient awake, alert and oriented x 3. No cognitive and/or slm functional deficits noted. Patient verbalized understanding of disposition instructions. 23:29 Discharge Assessment: Patient awake, alert and oriented x 3. No cognitive and/or slm functional deficits noted. Patient verbalized understanding of disposition instructions. patient administered narcotics - no. The following High Risk Discharge criteria are identified: None. Discharged to home ambulatory. Condition: stable. Discharge instructions given to patient, Instructed on discharge instructions, follow up and referral plans. medication usage, Demonstrated understanding of instructions, medications, Pt was receptive of discharge instructions/ teaching. CT Study completed. Property :Personal belongings accompany Pt. 23:30 Patient left the ED. slm Signatures: Dispatcher [employer] EDSheila Nunez RN RN mcp Baker, Janet, LICENSED CLINICAL SOCIAL WORKER LICENSED CLINICAL SOCIAL WORKER jb5 Little Mane,RN RN jo3 Gricel Dunham Daniell, LICENSED CLINICAL SOCIAL WORKER LICENSED CLINICAL SOCIAL WORKER dd6 Faby Cotter Michael, PA PA mo1 Felipe Guardado,RN RN jmb Ana Bowman,HISTORIOGRAPHY TEACHER HISTORIOGRAPHY TEACHER slm Dorothy Arnold,RN RN af2 MTDD
--- NOTE | 2016-08-10 00:31 | EDDOCDS ---
Nurse's Notes [facility] Name: Seema Valenzuela Age: 36 yrs Sex: Female : 1980 Arrival Date: 08/07/2016 Time: 19:11 Bed I4 / M4 Private MD: Elmer Decker Diagnosis: Lower abdominal pain, unspecified;Hypokalemia;Constipation Presentation: 08/07 19:15 Presenting complaint: Patient states: Severe left sided abdominal pain that started 1 jo3 week ago. Pt also c/o some vomiting. Was seen at Dr Decker's office and was told she had a small stone in her kidney and she was full of stool. Pain seems to be getting worse. Risk factors: the patient reports no vaginal bleeding. Adult Sepsis Screening: The patient does not have new or worsening altered mentation. Patient's respiratory rate is less than 22. Systolic blood pressure is greater than 100. Patient has a qSOFA score of 0- Negative Sepsis Screen. Suicide/Homicide risk assessment- the patient denies having any suicidal and/or homicidal ideations and does not present with any other emotional, behavioral or mental health complaints. Status: Patient is not a escalator service mechanic or dependent. Transition of care: patient was not received from another setting of care. 19:15 Acuity: TIARA Level 3 jo3 19:15 Method Of Arrival: Walkin/Carried/Asstd jo3 Triage Assessment: 19:19 General: Appears in no apparent distress, uncomfortable, Behavior is appropriate for jo3 age, cooperative. Pain: Pain currently is 10 out of 10 on a pain scale. HIV screening NA for this visit Offered previously. Neurological: No deficits noted. Respiratory: Airway is patent Respiratory effort is even, unlabored. Derm: Skin is pink, warm & dry. 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 pantoprazole oral 1 tab once daily 2. sumatriptan succinate 6 mg/0.5 mL Sub-Q pnij as needed 3. topiramate 250mg oral once daily 4. verapamil 40 mg oral tab 1 tab Daily - PMHx: Anxiety; Depression; GERD; Migraines; - PSHx: Hysterectomy; - Social history: Smoking status: No barriers to communication noted, The patient speaks fluent [place], Speaks appropriately for age. - Family history: Not pertinent. - : The pt / caregiver states he / she is not on anticoagulants. Home medication list is obtained from the patient. - Exposure Risk Screening:: None identified. Screenin:50 Screening information is obtained from the patient. Fall risk: No risks identified. af2 Assistance ADL's: requires no assistance with activities of daily living. Abuse/DV Screen: The patient / caregiver reports he/she is: not in a situation that causes fear, pain or injury. Nutritional screening: No deficits noted. Advance Directives: Currently, there is no health care proxy. home support is adequate. Assessment: 21:45 General: Appears in no apparent distress, Behavior is cooperative. Neurological: Level af2 of Consciousness is awake, alert, obeys commands, Oriented to person, place, time. Respiratory: Airway is patent Respiratory effort is even, unlabored. GI: Abdomen is non- distended Bowel sounds present X 4 quads. Abd is tender to palpation in left upper quadrant and left lower quadrant Reports lower abdominal pain, upper abd pain. Derm: Skin is pink, warm & dry. 22:44 General: Appears in no apparent distress, Behavior is cooperative. Neurological: Level af2 of Consciousness is awake, alert. Respiratory: Airway is patent Respiratory effort is even, unlabored. Derm: Skin is pink, warm & dry. 22:48 General: To CT and back. IV patent and infusing well--site without any signs of mcp infiltration. 23:27 Reassessment: Patient appears in no apparent distress at this time. General: Appears in slm no apparent distress, Behavior is cooperative. Vital Signs: 19:13 BP 118 / 81; Pulse 92; Resp 18 S; Temp 97.9; Pulse Ox 100% on R/A; Weight 58.97 kg (R); dd6 Height 5 ft. 4 in. (162.56 cm) (R); 23:16 BP 107 / 67; Pulse 77; Resp 18; Temp 97.8; Pulse Ox 97% ; Pain 5/10; ajs 19:13 Body Mass Index 22.31 (58.97 kg, 162.56 cm) dd6 Vitals: 19:13 Log In Time: August 07, 2016 at 19:11. dd6 ED Course: 19:12 Patient visited by Arturo Antonio, DIANA. dd6 19:12 Elmer Decker MD is Private Physician. dd6 19:12 Patient moved to Waiting dd6 19:13 Patient moved to Pre RCE dd6 19:18 Triage Initiated jo3 19:21 Patient visited by Little Mane,GRACE. jo3 20:26 Patient moved to Triage 3 jmb 20:34 Patient visited by Ne Trotter PCA. jb5 20:44 Freddy Srivastava PA is PHCP. mo1 20:44 Armani Matute DO is Attending Physician. mo1 20:47 Patient visited by Freddy Srivastava PA. mo1 21:02 Patient moved to I4 / M4 jmb 21:16 Basic Metabolic Profile Sent. af2 21:16 CBC with Diff Sent. af2 21:16 Lipase Sent. af2 21:16 Urine Test-In Lab Sent. af2 21:16 Urinalysis Sent. af2 21:16 Liver Profile Sent. af2 21:16 Urine Culture Sent. af2 21:26 [facility] Payment Agreement was scanned into [employer] and attached to record. zo 21:38 Patient visited by Dorothy Arnold RN. af2 21:49 The patient / caregiver is instructed regarding the plan of care and ED course. Patient af2 has correct armband on for positive identification. Placed in gown. 21:49 Inserted saline lock: 20 gauge in right antecubital area and blood collected. The af2 patient tolerated the procedure well. 21:50 Patient visited by Dorothy Arnold RN. af2 22:02 Patient visited by Dorothy Arnold RN. af2 22:34 Patient visited by Dorothy Arnold RN. af2 22:44 Patient visited by Dorothy Arnold RN. af2 22:49 Patient visited by Sheila Easton RN. mcp 23:01 CT ABD & PELVIS: IV Contrast Only Returned. EDMS 23:08 Elmer Decker MD is Referral Physician. mo1 23:17 Patient visited by Faby Cotter. ajs 23:26 Discontinued lock intact, bleeding controlled, pressure dressing applied. No procedures slm done that require assistance. 23:30 Patient visited by Ana Bowman LPN. slm 08/08 10:06 T-Sheet-- Draft Copy was scanned into [employer] and attached to record. gb 10:06 Radiology Report was scanned into [employer] and attached to record. gb Administered Medications: 08/07 21:38 Drug: NS 0.9% 1000 ml [sodium chloride 0.9 % intravenous solution] Route: IV; Rate: af2 bolus; Site: right antecubital; 23:28 Follow up: IV Status: Completed infusion slm 21:38 Drug: Ondansetron 4 mg [ondansetron HCl 2 mg/mL intravenous solution (2 mL)] Route: af2 IVP; Site: right antecubital; 21:38 Drug: ketorolac 30 mg [ketorolac 30 mg/mL (1 mL) injection solution (1 mL)] Route: IVP; af2 Site: right antecubital; 23:26 Drug: Magnesium Citrate 300 ml [magnesium citrate oral solution (300 mL)] {Note: home slm with pt.} Route: PO; 23:26 Drug: Potassium Chloride 40 mEq [potassium chloride ER 10 mEq tablet,extended release slm (4 tabs)] Route: PO; Order Results: Lab Order: Basic Metabolic Profile; SPEC'M 08/07/16 21:13 Test: GLUCOSE, FASTING; Value: 87; Range: 70-105; Units: MG/DL; Status: F Test: BLOOD UREA NITROGEN; Value: 17; Range: 7-18; Units: MG/DL; Status: F Test: CREATININE FOR GFR; Value: 0.75; Range: 0.55-1.02; Units: MG/DL; Status: F Test: GLOMERULAR FILTRATION RATE; Value: > 60.0; Range: >60; Status: F Test: SODIUM LEVEL; Value: 144; Range: 136-145; Units: MEQ/L; Status: F Test: POTASSIUM SERUM; Value: 3.3; Range: 3.5-5.1; Abnormal: Below low normal; Units: MEQ/L; Status: F Test: CHLORIDE LEVEL; Value: 113; Range: 98-107; Abnormal: Above high normal; Units: MEQ/L; Status: F Test: CARBON DIOXIDE LEVEL; Value: 24; Range: 21-32; Units: MEQ/L; Status: F Test: ANION GAP; Value: 7; Range: 8-16; Abnormal: Below low normal; Units: MEQ/L; Status: F Test: CALCIUM LEVEL; Value: 8.6; Range: 8.5-10.1; Units: MG/DL; Status: F Test Note: ; Units are mL/min/1.73 m2 Chronic Kidney Disease Staging per NKF: Stage I & II GFR >=60 Normal to Mildly Decreased Stage III GFR 30-59 Moderately Decreased Stage IV GFR 15-29 Severely Decreased Stage V GFR <15 Very Little GFR Left ESRD GFR <15 on FARM LOAN INSPECTOR Lab Order: CBC with Diff; SPEC'M 08/07/16 21:13 Test: WHITE BLOOD COUNT; Value: 12.3; Range: 4.0-10.0; Abnormal: Above high normal; Units: K/mm3; Status: F Test: RED BLOOD COUNT; Value: 4.04; Range: 4.00-5.40; Units: M/mm3; Status: F Test: HEMOGLOBIN; Value: 13.1; Range: 12.0-16.0; Units: g/dl; Status: F Test: HEMATOCRIT; Value: 39.8; Range: 36.0-47.0; Units: %; Status: F Test: MEAN CORPUSCULAR VOLUME; Value: 98.5; Range: 80.0-96.0; Abnormal: Above high normal; Units: fl; Status: F Test: MEAN CORPUSCULAR HEMOGLOBIN; Value: 32.5; Range: 27.0-33.0; Units: pg; Status: F Test: MEAN CORPUSCULAR HGB CONC; Value: 33.0; Range: 32.0-36.5; Units: g/dl; Status: F Test: RED CELL DISTRIBUTION WIDTH; Value: 13.0; Range: 11.5-14.5; Units: %; Status: F Test: PLATELET COUNT, AUTOMATED; Value: 192; Range: 150-450; Units: k/mm3; Status: F Test: NEUTROPHILS %; Value: 69.6; Range: 36.0-66.0; Abnormal: Above high normal; Units: %; Status: F Test: LYMPH %; Value: 22.8; Range: 24.0-44.0; Abnormal: Below low normal; Units: %; Status: F Test: MONO %; Value: 5.0; Range: 0.0-5.0; Units: %; Status: F Test: EOS %; Value: 0.9; Range: 0.0-3.0; Units: %; Status: F Test: BASO %; Value: 0.2; Range: 0.0-1.0; Units: %; Status: F Test: LARGE UNSTAINED CELL %; Value: 1.6; Range: 0.0-4.0; Units: %; Status: F Test: NEUTROPHILS #; Value: 8.6; Range: 1.8-7.7; Abnormal: Above high normal; Units: K/mm3; Status: F Test: LYMPH #; Value: 2.8; Range: 1.5-4.5; Units: K/mm3; Status: F Test: MONO #; Value: 0.6; Range: 0.0-0.8; Units: K/mm3; Status: F Test: EOS #; Value: 0.1; Range: 0.0-0.50; Units: K/mm3; Status: F Test: BASO #; Value: 0.0; Range: 0.0-0.2; Units: K/mm3; Status: F Test: LARGE UNSTAINED CELL #; Value: 0.2; Range: 0.0-0.4; Units: K/mm3; Status: F Lab Order: Lipase; SPEC'M 08/07/16 21:13 Test: LIPASE; Value: 156; Range: 73-393; Units: U/L; Status: F Lab Order: Liver Profile; SPEC'M 08/07/16 21:13 Test: AST/SGOT; Value: 11; Range: 15-37; Abnormal: Below low normal; Units: U/L; Status: F Test: ALT/SGPT; Value: 21; Range: 12-78; Units: U/L; Status: F Test: ALKALINE PHOSPHATASE; Value: 50; Range: 45-117; Units: U/L; Status: F Test: BILIRUBIN,TOTAL; Value: 0.3; Range: 0.2-1.0; Units: MG/DL; Status: F Test: BILIRUBIN,DIRECT; Value: 0.1; Range: 0.0-0.2; Units: MG/DL; Status: F Test: TOTAL PROTEIN; Value: 7.2; Range: 6.4-8.2; Units: GM/DL; Status: F Test: ALBUMIN; Value: 4.0; Range: 3.2-5.2; Units: GM/DL; Status: F Test: ALBUMIN/GLOBULIN RATIO; Value: 1.25; Range: 1.00-1.93; Status: F Lab Order: Urinalysis; SPEC'M 08/07/16 21:13 Test: APPEARANCE, URINE; Value: HAZY; Range: CLEAR; Status: F Test: COLOR, URINE; Value: YELLOW; Range: YELLOW; Status: F Test: PH,URINE; Value: 5.0; Range: 5.0-9.0; Units: UNITS; Status: F Test: SPECIFIC GRAVITY URINE AUTO; Value: 1.018; Range: 1.002-1.035; Status: F Test: PROTEIN, URINE AUTO; Value: NEGATIVE; Range: NEGATIVE; Units: mg/dL; Status: F Test: GLUCOSE, URINE (UA) AUTO; Value: NEGATIVE; Range: NEGATIVE; Units: mg/dL; Status: F Test: KETONE, URINE AUTO; Value: TRACE; Range: NEGATIVE; Abnormal: Above high normal; Units: mg/dL; Status: F Test: UROBILINOGEN, URINE AUTO; Value: 0.2; Range: 0.0-2.0; Units: mg/dL; Status: F Test: BILIRUBIN, URINE AUTO; Value: NEGATIVE; Range: NEGATIVE; Status: F Test: NITRITE, URINE AUTO; Value: NEGATIVE; Range: NEGATIVE; Status: F Test: LEUKOCYTE ESTERASE, URINE AUTO; Value: NEGATIVE; Range: NEGATIVE; Status: F Test: BLOOD, URINE BLOOD; Value: 1+; Range: NEGATIVE; Abnormal: Above high normal; Status: F Test: SPERM, URINE AUTO; Range: NONE; Status: I Test: WBC, URINE AUTO; Value: 2; Range: 0-3; Units: /HPF; Status: F Test: RBC, URINE AUTO; Value: 9; Range: 0-3; Abnormal: Above high normal; Units: /HPF; Status: F Test: BACTERIA, URINE AUTO; Value: 1+; Range: NEGATIVE; Abnormal: Above high normal; Status: F Test: SQUAMOUS EPITHELIAL CELL UR AU; Value: 4; Range: 0-6; Units: /HPF; Status: F Test: MUCUS, URINE; Value: SMALL; Range: NEGATIVE; Status: F Test: HYALINE CAST, URINE AUTO; Value: 0; Range: 0-1; Units: /LPF; Status: F Lab Order: Urine Test-In Lab; SPEC'M 08/07/16 21:13 Test: URINE PREG TEST; Value: NEGATIVE; Range: NEGATIVE; Status: F Lab Order: Urine Culture; SPEC'M 08/07/16 21:13 Test: URINE CULTURE; Value: URINE CULTURE RESULT NO GROWTH CLINICAL SIGNIFICANCE 1 ORGANISM; Status: F Radiology Order: CT ABD & PELVIS: IV Contrast Only Test: CT ABD & PELVIS: IV Contrast Only REASON FOR EXAMINATION: Diverticulitis; ; CT of the abdomen and pelvis with contrast; Clinical statement: Pain.; Technique: Multiple axial CT images were obtained from the base of the lungs through the floor of the; pelvis utilizing 5 mm axial slices after administration of nonionic intravenous contrast. Coronal an; d sagittal reconstructions were also obtained.; Comparison: 07/28/2016.; Findings:; Chest: The visualized lung bases are clear.; Abdomen: The liver, spleen, pancreas, kidneys, gallbladder, and adrenal glands are unremarkable. The; aorta is within normal limits. There is no evidence of abdominal lymphadenopathy or ascites.; Pelvis: Moderate amount of stool fills the colon.The bowel is otherwise unremarkable, with no obstruc; tive or inflammatory changes. The appendix is normal. The urinary bladder is within normal limits. Th; ere is a small right ovarian cyst measuring 2.1 x 1.2 cm. The other pelvic structures appear grossly; intact. There is no evidence of pelvic lymphadenopathy or ascites.; Bones: There are no suspicious osseous abnormalities seen.; Impression:; 1. Mild constipation. No obstructive or inflammatory bowel changes.; 2. Small right ovarian cyst.; ; Outcome: 23:08 Discharge ordered by Provider. mo1 23:28 Discharge Assessment: Patient awake, alert and oriented x 3. No cognitive and/or slm functional deficits noted. Patient verbalized understanding of disposition instructions. 23:29 Discharge Assessment: Patient awake, alert and oriented x 3. No cognitive and/or slm functional deficits noted. Patient verbalized understanding of disposition instructions. patient administered narcotics - no. The following High Risk Discharge criteria are identified: None. Discharged to home ambulatory. Condition: stable. Discharge instructions given to patient, Instructed on discharge instructions, follow up and referral plans. medication usage, Demonstrated understanding of instructions, medications, Pt was receptive of discharge instructions/ teaching. CT Study completed. Property :Personal belongings accompany Pt. 23:30 Patient left the ED. terence Signatures: Dispatcher [employer] EDMS Sheila Easton, RN RN Tamara Caputo, Reg Reg gb Ne Trotter, MARKETING TRAINEE MARKETING TRAINEE jb5 Little ManeRN RN jo3 Gricel Dunham Daniell, MARKETING TRAINEE MARKETING TRAINEE dd6 Faby Cotter Michael, PA PA Felipe NixonRN RN Ana Limon,Dorothy Maloney LPN,RN RN af2 Chart Complete MTDD
--- NOTE | 2016-08-10 00:31 | EDDOCDS ---
Physician Documentation [facility] Name: Seema Valenzuela Age: 36 yrs Sex: Female : 1980 Arrival Date: 08/07/2016 Time: 19:11 Bed I4 / M4 Private MD: Elmer Decker Disposition: 08/07/16 23:08 Discharged to Home/Self Care. Impression: Lower abdominal pain, unspecified, Hypokalemia, Constipation. - Condition is Stable. - Discharge Instructions: Abdominal Pain, Adult, Constipation, Adult, Potassium Content of Foods. - Medication Reconciliation, Local Pharmacy Hours form. - Follow up: Elmer Decker MD; When: Call to arrange an appointment; Reason: Recheck today's complaints, Continuance of care. - Problem is new. - Symptoms have improved. Historical: - Allergies: No known drug Allergies; - Home Meds: 1. pantoprazole oral 1 tab once daily 2. sumatriptan succinate 6 mg/0.5 mL Sub-Q pnij as needed 3. topiramate 250mg oral once daily 4. verapamil 40 mg oral tab 1 tab Daily - PMHx: Anxiety; Depression; GERD; Migraines; - PSHx: Hysterectomy; - Social history: Smoking status: No barriers to communication noted, The patient speaks fluent [place], Speaks appropriately for age. - Family history: Not pertinent. - : The pt / caregiver states he / she is not on anticoagulants. Home medication list is obtained from the patient. - Exposure Risk Screening:: None identified. 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 4 in. (162.56 cm) (R); 23:16 BP 107 / 67; Pulse 77; Resp 18; Temp 97.8; Pulse Ox 97% ; Pain 5/10; ajs 19:13 Body Mass Index 22.31 (58.97 kg, 162.56 cm) dd6 MDM: 21:04 NS 0.9% 1000 ml IV at bolus once ordered. mo1 21:04 Ondansetron 4 mg IVP once ordered. mo1 21:04 ketorolac 30 mg IVP once ordered. mo1 21:04 IV Saline Lock ordered. mo1 21:04 Undress patient appropriately for examination ordered. mo1 21:05 Basic Metabolic Profile Ordered. EDMS 21:05 CBC with Diff Ordered. EDMS 21:05 Lipase Ordered. EDMS 21:05 Liver Profile Ordered. EDMS 21:05 Urinalysis Ordered. EDMS 21:05 Urine Test-In Lab Ordered. EDMS 21:06 Urine Culture Ordered. EDMS 21:07 NOTHING BY MOUTH+DIET ordered. EDMS 21:26 Financial registration complete. zo 21:26 [facility] Payment Agreement was scanned into [employer] and attached to record. zo 21:43 CBC with Diff Reviewed. mo1 21:44 Urinalysis Reviewed. mo1 21:44 Urine Test-In Lab Reviewed. mo1 21:47 Liver Profile Reviewed. mo1 21:47 Basic Metabolic Profile Reviewed. mo1 21:47 Lipase Reviewed. mo1 21:48 CT ABD & PELVIS: IV Contrast Only Ordered. EDMS 23:07 Magnesium Citrate Liquid 300 ml PO once; Dispense home with pt. ordered. mo1 23:09 Potassium Chloride Extended Release Tablet 40 mEq PO once ordered. mo1 08/08 10:06 T-Sheet-- Draft Copy was scanned into [employer] and attached to record. gb 10:06 Radiology Report was scanned into [employer] and attached to record. gb Administered Medications: 08/07 21:38 Drug: NS 0.9% 1000 ml [sodium chloride 0.9 % intravenous solution] Route: IV; Rate: af2 bolus; Site: right antecubital; 23:28 Follow up: IV Status: Completed infusion slm 21:38 Drug: Ondansetron 4 mg [ondansetron HCl 2 mg/mL intravenous solution (2 mL)] Route: af2 IVP; Site: right antecubital; 21:38 Drug: ketorolac 30 mg [ketorolac 30 mg/mL (1 mL) injection solution (1 mL)] Route: IVP; af2 Site: right antecubital; 23:26 Drug: Magnesium Citrate 300 ml [magnesium citrate oral solution (300 mL)] {Note: home slm with pt.} Route: PO; 23:26 Drug: Potassium Chloride 40 mEq [potassium chloride ER 10 mEq tablet,extended release slm (4 tabs)] Route: PO; Signatures: Dispatcher [employer] EDTamara Salvador, Trell Reg gb Little Mane,RN RN jo3 Gricel Dunham Michael, PA PA mo1 Ana Bowman,MANNEQUIN COLORING ARTIST MANNEQUIN COLORING ARTIST slm Dorothy Arnold RN af2 The chart was reviewed and I authenticate all verbal orders and agree with the evaluation and treatment provided.Attachments: 21:26 [facility] Payment Agreement zo 08/08 10:06 T-Sheet-- Draft Copy gb Chart Complete MTDD
--- NOTE | 2016-08-10 00:31 | EDDOCDS ---
Physician Documentation [facility] Name: Seema Valenzuela Age: 36 yrs Sex: Female : 1980 Arrival Date: 08/07/2016 Time: 19:11 Bed I4 / M4 Private MD: Elmer Decker Disposition: 08/07/16 23:08 Discharged to Home/Self Care. Impression: Lower abdominal pain, unspecified, Hypokalemia, Constipation. - Condition is Stable. - Discharge Instructions: Abdominal Pain, Adult, Constipation, Adult, Potassium Content of Foods. - Medication Reconciliation, Local Pharmacy Hours form. - Follow up: Elmer Decker MD; When: Call to arrange an appointment; Reason: Recheck today's complaints, Continuance of care. - Problem is new. - Symptoms have improved. Historical: - Allergies: No known drug Allergies; - Home Meds: 1. pantoprazole oral 1 tab once daily 2. sumatriptan succinate 6 mg/0.5 mL Sub-Q pnij as needed 3. topiramate 250mg oral once daily 4. verapamil 40 mg oral tab 1 tab Daily - PMHx: Anxiety; Depression; GERD; Migraines; - PSHx: Hysterectomy; - Social history: Smoking status: No barriers to communication noted, The patient speaks fluent Taiwanese, Speaks appropriately for age. - Family history: Not pertinent. - : The pt / caregiver states he / she is not on anticoagulants. Home medication list is obtained from the patient. - Exposure Risk Screening:: None identified. 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 4 in. (162.56 cm) (R); 23:16 BP 107 / 67; Pulse 77; Resp 18; Temp 97.8; Pulse Ox 97% ; Pain 5/10; ajs 19:13 Body Mass Index 22.31 (58.97 kg, 162.56 cm) dd6 MDM: 21:04 NS 0.9% 1000 ml IV at bolus once ordered. mo1 21:04 Ondansetron 4 mg IVP once ordered. mo1 21:04 ketorolac 30 mg IVP once ordered. mo1 21:04 IV Saline Lock ordered. mo1 21:04 Undress patient appropriately for examination ordered. mo1 21:05 Basic Metabolic Profile Ordered. EDMS 21:05 CBC with Diff Ordered. EDMS 21:05 Lipase Ordered. EDMS 21:05 Liver Profile Ordered. EDMS 21:05 Urinalysis Ordered. EDMS 21:05 Urine Test-In Lab Ordered. EDMS 21:06 Urine Culture Ordered. EDMS 21:07 NOTHING BY MOUTH+DIET ordered. EDMS 21:26 Financial registration complete. zo 21:26 [facility] Payment Agreement was scanned into [employer] and attached to record. zo 21:43 CBC with Diff Reviewed. mo1 21:44 Urinalysis Reviewed. mo1 21:44 Urine Test-In Lab Reviewed. mo1 21:47 Liver Profile Reviewed. mo1 21:47 Basic Metabolic Profile Reviewed. mo1 21:47 Lipase Reviewed. mo1 21:48 CT ABD & PELVIS: IV Contrast Only Ordered. EDMS 23:07 Magnesium Citrate Liquid 300 ml PO once; Dispense home with pt. ordered. mo1 23:09 Potassium Chloride Extended Release Tablet 40 mEq PO once ordered. mo1 08/08 10:06 T-Sheet-- Draft Copy was scanned into [employer] and attached to record. gb 10:06 Radiology Report was scanned into [employer] and attached to record. gb Administered Medications: 08/07 21:38 Drug: NS 0.9% 1000 ml [sodium chloride 0.9 % intravenous solution] Route: IV; Rate: af2 bolus; Site: right antecubital; 23:28 Follow up: IV Status: Completed infusion slm 21:38 Drug: Ondansetron 4 mg [ondansetron HCl 2 mg/mL intravenous solution (2 mL)] Route: af2 IVP; Site: right antecubital; 21:38 Drug: ketorolac 30 mg [ketorolac 30 mg/mL (1 mL) injection solution (1 mL)] Route: IVP; af2 Site: right antecubital; 23:26 Drug: Magnesium Citrate 300 ml [magnesium citrate oral solution (300 mL)] {Note: home slm with pt.} Route: PO; 23:26 Drug: Potassium Chloride 40 mEq [potassium chloride ER 10 mEq tablet,extended release slm (4 tabs)] Route: PO; Signatures: Dispatcher [employer] EDTamara Salvador, Trell Reg gb Little Mane,RN RN jo3 Gricel Dunham Michael, PA PA mo1 Ana Bowman,CRITICAL CARE REGISTERED NURSE CRITICAL CARE REGISTERED NURSE slm Dorothy Arnold RN af2 The chart was reviewed and I authenticate all verbal orders and agree with the evaluation and treatment provided.Attachments: 21:26 [facility] Payment Agreement zo 08/08 10:06 T-Sheet-- Draft Copy gb Chart Complete MTDD
== END 2016-08-07 23:30 | disposition home or self-care (01) ==
LOC: M ED 19:11
DX: K59.00 Constipation, unspecified (principal); N83.291 Other ovarian cyst, right side; E87.6 Hypokalemia; F41.9 Anxiety disorder, unspecified; F32.9 Major depressive disorder, single episode, unspecified; K21.9 Gastro-esophageal reflux disease without esophagitis; G43.909 Migraine, unspecified, not intractable, without status migrainosus; Z79.899 Other long term (current) drug therapy
CPT/HCPCS: 36415; 74177; 80048; 80076; 81001; 83690; 84703; 85025; 87086; 96361; 96374; 96375; 99284; J1885; J2405; Q9967

== ENCOUNTER → 2017-01-05 | Outpatient (CLI) | payer OTHER ==
[2017-01-05 13:51] LABS: MEAN CORPUSCULAR HEMOGLOBIN 34.1 pg (27.0-33.0); MEAN CORPUSCULAR HGB CONC 34.2 g/dl (32.0-36.5); MEAN CORPUSCULAR VOLUME 99.7 fl (80.0-96.0); RED CELL DISTRIBUTION WIDTH 13.1 % (11.5-14.5)
[2017-01-05 14:22] LABS: ALBUMIN 3.7 GM/DL (3.2-5.2); ALBUMIN/GLOBULIN RATIO 1.23 (1.00-1.93); ALKALINE PHOSPHATASE 57 U/L (45-117); ALT/SGPT 16 U/L (12-78); ANION GAP 7 MEQ/L (8-16); AST/SGOT 15 U/L (15-37); BILIRUBIN,TOTAL 0.4 MG/DL (0.2-1.0); BLOOD UREA NITROGEN 14 MG/DL (7-18); CALCIUM LEVEL 8.3 MG/DL (8.5-10.1); CARBON DIOXIDE LEVEL 21 MEQ/L (21-32); CHLORIDE LEVEL 109 MEQ/L (98-107); CREATININE FOR GFR 0.74 MG/DL (0.55-1.02); GLOMERULAR FILTRATION RATE > 60.0 (>60); GLUCOSE, FASTING 73 MG/DL (70-105); POTASSIUM SERUM 3.7 MEQ/L (3.5-5.1); SODIUM LEVEL 137 MEQ/L (136-145); THYROXINE (T4) 5.1 UG/DL (4.5-12.0); TOTAL PROTEIN 6.7 GM/DL (6.4-8.2)
== END ==
LOC: M LAB 12:35
PROVIDERS: ATTEND Nurse Practitioner Psychiatric/Mental Health
DX: F33.2 Major depressive disorder, recurrent severe without psychotic features (principal)

== ENCOUNTER → 2017-03-03 | Outpatient (REF) | payer OTHER ==
[~2017-03-03] MED LIST changes: +BACT800T5 PO; +LEVO25TA5; +METO10TA2 PO; +PARO5TAB PO; +TOPA100T12 PO; -TOPA100T8 PO; +ZOFR4TAB3 PO
== END ==
LOC: M SFHCLERA 12:54
PROVIDERS: ATTEND Physician Assistant
DX: R30.0 Dysuria (principal)

== ENCOUNTER → 2017-03-11 | Outpatient (REF) | payer OTHER | LOC: M LAB REF 17:47 | PROVIDERS: ATTEND Obstetrics & Gynecology | DX: N76.0 Acute vaginitis (principal) ==

== ENCOUNTER → 2017-03-23 | Outpatient (CLI) | payer OTHER ==
[2017-03-23 14:42] LABS: THYROXINE (T4) 7.3 UG/DL (4.5-12.0)
== END ==
LOC: M LAB 13:00
PROVIDERS: ATTEND Physician Assistant
DX: R82.90 Unspecified abnormal findings in urine (principal)

== ENCOUNTER → 2017-04-12 | Outpatient (CLI) | payer OTHER ==
[2017-04-12 10:39] LABS: FREE T4 0.74 NG/DL (0.76-1.46)
[2017-04-12 11:22] LABS: THYROID PEROXIDASE ANTIBODY 393.6 U/ML (<60.0)
== END ==
LOC: M LAB 09:28
PROVIDERS: ATTEND Physician Assistant
DX: R94.6 Abnormal results of thyroid function studies (principal)

== ENCOUNTER 2017-05-10 09:25 | Emergency (ER) | payer OTHER ==
[~2017-05-10] VITALS: Ht 162.6 cm; Wt 54.5 kg
[~2017-05-10 09:25] MED LIST changes: -BACT800T5 PO; -LEVO25TA5; -METO10TA2 PO; -PARO5TAB PO; -ZOFR4TAB3 PO
[2017-05-10] MEDS ORDERED: PARO5TAB PO (09:50)
[2017-05-10] MEDS ORDERED: LEVO25TA5 (09:50)
[2017-05-10] MEDS ORDERED: KETOROLAC 30 MG/ML VIAL (J1885) IV ONE (11:00)
[2017-05-10] MEDS ORDERED: NS 1,000 ML IV ONE (11:00)
[2017-05-10] MEDS ORDERED: ONDANSETRON 4MG/2ML VIAL (J2405) IV ONE (11:00)
[2017-05-10 11:21] LABS: BASO # 0.1 10^3/uL (0.0-0.2); BASO % 0.6 % (0.0-1.0); EOS # 0.2 10^3/uL (0.0-0.50); IMMATURE GRANULOCYTE % 0.3 % (0-0); LYMPH % 20.2 % (24.0-44.0); MEAN CORPUSCULAR HEMOGLOBIN 32.9 pg (27.0-33.0); MEAN CORPUSCULAR HGB CONC 33.7 g/dl (32.0-36.5); MEAN CORPUSCULAR VOLUME 97.5 fl (80.0-96.0); MONO # 0.8 10^3/uL (0.0-0.8); MONO % 7.9 % (0.0-5.0); NEUTROPHILS # 6.7 10^3/uL (1.8-7.7); PLATELET COUNT, AUTOMATED 198 10^3/uL (150-450); RED CELL DISTRIBUTION WIDTH 12.6 % (11.5-14.5); WHITE BLOOD COUNT 9.8 10^3/uL (4.0-10.0)
[2017-05-10 11:49] LABS: ALBUMIN 4.1 GM/DL (3.2-5.2); ALBUMIN/GLOBULIN RATIO 1.24 (1.00-1.93); ALKALINE PHOSPHATASE 59 U/L (45-117); ALT/SGPT 14 U/L (12-78); AMYLASE 30 U/L (25-115); ANION GAP 8 MEQ/L (8-16); AST/SGOT 13 U/L (15-37); BILIRUBIN,DIRECT 0.1 MG/DL (0.0-0.2); BILIRUBIN,TOTAL 0.5 MG/DL (0.2-1.0); BLOOD UREA NITROGEN 12 MG/DL (7-18); CALCIUM LEVEL 8.5 MG/DL (8.5-10.1); CARBON DIOXIDE LEVEL 21 MEQ/L (21-32); CHLORIDE LEVEL 111 MEQ/L (98-107); GLOMERULAR FILTRATION RATE > 60.0 (>60); GLUCOSE, FASTING 89 MG/DL (70-105); POTASSIUM SERUM 3.8 MEQ/L (3.5-5.1); SODIUM LEVEL 140 MEQ/L (136-145); TOTAL PROTEIN 7.4 GM/DL (6.4-8.2)
[2017-05-10] MEDS ORDERED: cefTRIAXone SOD 1 GM in D5W 50 ML IV ONE (12:00)
--- NOTE | 2017-05-10 12:36 | REP ---
RENAL ULTRASOUND: Real-time sonographic evaluation of the kidneys performed. The kidneys are normal in size and echotexture, right kidney measuring 10.5 x 4.1 x 5.0 cm and the left kidney 10.2 x 5.2 x 4.8 cm. There is no hydronephrosis or nephrolithiasis identified bilaterally. No definite renal mass is seen. Urinary bladder is not well distended and not well evaluated. IMPRESSION: Negative renal ultrasound. Signed by Terrence Diaz MD 05/11/2017 07:53 P
[2017-05-10] MEDS ORDERED: MORPHINE 4 MG/ML 1ML SYRINGE IV ONE (13:15)
[2017-05-10] MEDS ORDERED: ZOFR4TAB3 PO (14:15)
[2017-05-10] MEDS ORDERED: BACT800T5 PO (14:15)
[2017-05-10 14:27] VITALS: BP 114/79
== END 2017-05-10 14:29 | disposition home or self-care (01) ==
LOC: M ED 09:25
DX: N10 Acute pyelonephritis (principal); F17.200 Nicotine dependence, unspecified, uncomplicated; Z79.899 Other long term (current) drug therapy; Z88.1 Allergy status to other antibiotic agents; G43.909 Migraine, unspecified, not intractable, without status migrainosus; R56.9 Unspecified convulsions; Z87.440 Personal history of urinary (tract) infections; E03.9 Hypothyroidism, unspecified; F41.9 Anxiety disorder, unspecified; F32.9 Major depressive disorder, single episode, unspecified; K92.9 Disease of digestive system, unspecified
CPT/HCPCS: 76775; 80048; 80076; 81001; 82150; 83690; 85025; 87088; 87186; 96374; 96375; 99283; J0696; J1885; J2405

== ENCOUNTER 2017-05-12 16:29 | Emergency (ER) | payer OTHER ==
[~2017-05-12] VITALS: Ht 162.6 cm; Wt 54.5 kg
[~2017-05-12 16:29] MED LIST changes: +BACT800T5 PO; +LEVO25TA5; +PARO5TAB PO; +ZOFR4TAB3 PO
[2017-05-12] MEDS ORDERED: ONDANSETRON 4MG/2ML VIAL (J2405) IV ONE (17:45)
[2017-05-12] MEDS ORDERED: NS 1,000 ML IV ONE ×2 (17:45→19:15)
[2017-05-12 18:04] LABS: BASO % 0.5 % (0.0-1.0); EOS # 0.2 10^3/uL (0.0-0.50); EOS % 2.3 % (0.0-3.0); IMMATURE GRANULOCYTE % 0.4 % (0-0); LYMPH # 2.3 10^3/uL (1.5-4.5); MEAN CORPUSCULAR HEMOGLOBIN 32.9 pg (27.0-33.0); MEAN CORPUSCULAR HGB CONC 34.3 g/dl (32.0-36.5); NEUTROPHILS # 4.8 10^3/uL (1.8-7.7); NEUTROPHILS % 56.8 % (36.0-66.0); PLATELET COUNT, AUTOMATED 204 10^3/uL (150-450); RED CELL DISTRIBUTION WIDTH 12.4 % (11.5-14.5); WHITE BLOOD COUNT 8.4 10^3/uL (4.0-10.0)
[2017-05-12 18:33] LABS: ANION GAP 5 MEQ/L (8-16); BLOOD UREA NITROGEN 14 MG/DL (7-18); CALCIUM LEVEL 9.1 MG/DL (8.5-10.1); CARBON DIOXIDE LEVEL 25 MEQ/L (21-32); CHLORIDE LEVEL 110 MEQ/L (98-107); GLOMERULAR FILTRATION RATE > 60.0 (>60); GLUCOSE, FASTING 86 MG/DL (70-105); POTASSIUM SERUM 3.6 MEQ/L (3.5-5.1); SODIUM LEVEL 140 MEQ/L (136-145)
[2017-05-12] MEDS ORDERED: METOCLOPRAMIDE INJ 10MG/2ML VIAL (J2765) IV ONE (19:15)
[2017-05-12] MEDS ORDERED: METO10TA2 PO (20:17)
[2017-05-12 20:28] VITALS: BP 98/66
== END 2017-05-12 20:30 | disposition home or self-care (01) ==
LOC: M ED 16:29
DX: N30.01 Acute cystitis with hematuria (principal); M54.31 Sciatica, right side; R11.2 Nausea with vomiting, unspecified; G43.909 Migraine, unspecified, not intractable, without status migrainosus; E03.9 Hypothyroidism, unspecified; F41.9 Anxiety disorder, unspecified; F32.9 Major depressive disorder, single episode, unspecified; F17.200 Nicotine dependence, unspecified, uncomplicated; Z79.899 Other long term (current) drug therapy; Z88.1 Allergy status to other antibiotic agents
CPT/HCPCS: 36415; 80048; 81001; 85025; 96361; 96374; 96375; 99283; J2405; J2765

== ENCOUNTER → 2017-08-02 | Outpatient (CLI) | payer OTHER ==
[2017-08-02 09:24] LABS: BASO # 0.1 10^3/uL (0.0-0.2); BASO % 1.2 % (0.0-1.0); EOS # 0.2 10^3/uL (0.0-0.50); EOS % 4.1 % (0.0-3.0); HEMATOCRIT 43.8 % (36.0-47.0); HEMOGLOBIN 14.6 g/dl (12.0-16.0); IMMATURE GRANULOCYTE % 0.2 % (0-0); LYMPH # 1.4 10^3/uL (1.5-4.5); LYMPH % 25.1 % (24.0-44.0); MEAN CORPUSCULAR HGB CONC 33.3 g/dl (32.0-36.5); MEAN CORPUSCULAR VOLUME 96.1 fl (80.0-96.0); MONO # 0.4 10^3/uL (0.0-0.8); MONO % 7.7 % (0.0-5.0); NEUTROPHILS # 3.5 10^3/uL (1.8-7.7); NEUTROPHILS % 61.7 % (36.0-66.0); PLATELET COUNT, AUTOMATED 212 10^3/uL (150-450); RED BLOOD COUNT 4.56 10^6/uL (4.00-5.40); RED CELL DISTRIBUTION WIDTH 13.2 % (11.5-14.5); WHITE BLOOD COUNT 5.6 10^3/uL (4.0-10.0)
[2017-08-02 09:29] LABS: AMORPHOUS SEDIMENT SMALL (NEGATIVE); APPEARANCE, URINE CLOUDY (CLEAR); BACTERIA, URINE AUTO NEGATIVE (NEGATIVE); BILIRUBIN, URINE AUTO NEGATIVE (NEGATIVE); BLOOD, URINE BLOOD 1+ (NEGATIVE); COLOR, URINE YELLOW (YELLOW); GLUCOSE, URINE (UA) AUTO NEGATIVE (NEGATIVE); KETONE, URINE AUTO NEGATIVE (NEGATIVE); LEUKOCYTE ESTERASE, URINE AUTO NEGATIVE (NEGATIVE); MUCUS, URINE SMALL (NEGATIVE); NITRITE, URINE AUTO NEGATIVE (NEGATIVE); PROTEIN, URINE AUTO NEGATIVE (NEGATIVE); RBC, URINE AUTO 2 /HPF (0-3); SPECIFIC GRAVITY URINE AUTO 1.016 (1.002-1.035); SQUAMOUS EPITHELIAL CELL UR AU 3 /HPF (0-6); WBC, URINE AUTO 0 /HPF (0-3)
[2017-08-02 09:33] LABS: ESTIMATED AVERAGE GLUCOSE 100 MG/DL (60-110); HEMOGLOBIN A1c 5.1 %
[2017-08-02 09:47] LABS: ALBUMIN 4.1 GM/DL (3.2-5.2); ALBUMIN/GLOBULIN RATIO 1.21 (1.00-1.93); ALKALINE PHOSPHATASE 52 U/L (45-117); ALT/SGPT 13 U/L (12-78); ANION GAP 7 MEQ/L (8-16); AST/SGOT 15 U/L (7-37); BILIRUBIN,TOTAL 0.2 MG/DL (0.2-1.0); BLOOD UREA NITROGEN 14 MG/DL (7-18); CALCIUM LEVEL 8.4 MG/DL (8.5-10.1); CARBON DIOXIDE LEVEL 23 MEQ/L (21-32); CHLORIDE LEVEL 110 MEQ/L (98-107); CHOLESTEROL LEVEL 208 MG/DL (<200); CHOLESTEROL RISK RATIO 3.781 (<5); CREATININE FOR GFR 0.75 MG/DL (0.55-1.02); FREE T4 0.75 NG/DL (0.76-1.46); GLOMERULAR FILTRATION RATE > 60.0 (>60); GLUCOSE, FASTING 95 MG/DL (70-105); HDL CHOLESTEROL 55 MG/DL (>40); LDL CHOLESTEROL 134.8 MG/DL (<100); NON-HDL-C 153 MG/DL; POTASSIUM SERUM 4.2 MEQ/L (3.5-5.1); SODIUM LEVEL 140 MEQ/L (136-145); TOTAL PROTEIN 7.5 GM/DL (6.4-8.2); TRIGLYCERIDES LEVEL 91 MG/DL (<150)
== END ==
LOC: M LAB 08:35
DX: Z71.2 Person consulting for explanation of examination or test findings (principal)
CPT/HCPCS: 84443

== ENCOUNTER → 2017-11-05 | Outpatient (CLI) | payer OTHER ==
[2017-11-05 12:20] LABS: BASO # 0.1 10^3/uL (0.0-0.2); BASO % 0.8 % (0.0-1.0); EOS # 0.2 10^3/uL (0.0-0.50); EOS % 2.6 % (0.0-3.0); HEMOGLOBIN 14.7 g/dl (12.0-15.5); IMMATURE GRANULOCYTE % 0.3 % (0-3.0); LYMPH # 1.7 10^3/uL (1.5-4.5); MEAN CORPUSCULAR HEMOGLOBIN 32.2 pg (27.0-33.0); MEAN CORPUSCULAR HGB CONC 33.4 g/dl (32.0-36.5); MEAN CORPUSCULAR VOLUME 96.5 fl (80.0-96.0); MONO # 0.4 10^3/uL (0.0-0.8); MONO % 5.7 % (0.0-5.0); NEUTROPHILS # 4.9 10^3/uL (1.8-7.7); NEUTROPHILS % 67.6 % (36.0-66.0); PLATELET COUNT, AUTOMATED 216 10^3/uL (150-450); RED BLOOD COUNT 4.56 10^6/uL (4.00-5.40); WHITE BLOOD COUNT 7.2 10^3/uL (4.0-10.0)
[2017-11-05 12:31] LABS: AMORPHOUS SEDIMENT MODERATE (NEGATIVE); APPEARANCE, URINE CLOUDY (CLEAR); BACTERIA, URINE AUTO NEGATIVE (NEGATIVE); BILIRUBIN, URINE AUTO NEGATIVE (NEGATIVE); BLOOD, URINE BLOOD 2+ (NEGATIVE); COLOR, URINE YELLOW (YELLOW); GLUCOSE, URINE (UA) AUTO NEGATIVE (NEGATIVE); KETONE, URINE AUTO NEGATIVE (NEGATIVE); LEUKOCYTE ESTERASE, URINE AUTO NEGATIVE (NEGATIVE); MUCUS, URINE SMALL (NEGATIVE); NITRITE, URINE AUTO NEGATIVE (NEGATIVE); PROTEIN, URINE AUTO NEGATIVE (NEGATIVE); RBC, URINE AUTO 13 /HPF (0-3); SPECIFIC GRAVITY URINE AUTO 1.018 (1.002-1.035); SQUAMOUS EPITHELIAL CELL UR AU 1 /HPF (0-6); WBC, URINE AUTO 2 /HPF (0-3)
[2017-11-05 12:56] LABS: TOTAL 25(OH) VITAMIN D 60.6 NG/ML (30.0-100.0)
[2017-11-05 12:59] LABS: ALBUMIN 4.1 GM/DL (3.2-5.2); ALBUMIN/GLOBULIN RATIO 1.21 (1.00-1.93); ALKALINE PHOSPHATASE 60 U/L (45-117); ALT/SGPT 14 U/L (12-78); ANION GAP 8 MEQ/L (8-16); AST/SGOT 16 U/L (7-37); BILIRUBIN,TOTAL 0.4 MG/DL (0.2-1.0); BLOOD UREA NITROGEN 12 MG/DL (7-18); CALCIUM LEVEL 8.5 MG/DL (8.5-10.1); CARBON DIOXIDE LEVEL 22 MEQ/L (21-32); CHLORIDE LEVEL 111 MEQ/L (98-107); CHOLESTEROL LEVEL 204 MG/DL (<200); CHOLESTEROL RISK RATIO 4.163 (<5); CREATININE FOR GFR 0.79 MG/DL (0.55-1.30); FREE T4 0.95 NG/DL (0.76-1.46); GLOMERULAR FILTRATION RATE > 60.0 (>60); GLUCOSE, FASTING 84 MG/DL (70-100); HDL CHOLESTEROL 49 MG/DL (>40); LDL CHOLESTEROL 137.2 MG/DL (<100); NON-HDL-C 155 MG/DL; POTASSIUM SERUM 4.2 MEQ/L (3.5-5.1); SODIUM LEVEL 141 MEQ/L (136-145); TOTAL PROTEIN 7.5 GM/DL (6.4-8.2); TRIGLYCERIDES LEVEL 89 MG/DL (<150)
[2017-11-05 13:19] LABS: ESTIMATED AVERAGE GLUCOSE 103 MG/DL (60-110); HEMOGLOBIN A1c 5.2 %
== END ==
LOC: M LAB 11:33
DX: Z71.2 Person consulting for explanation of examination or test findings (principal)
CPT/HCPCS: 84443

== ENCOUNTER 2018-02-06 10:32 | Emergency (ER) | payer OTHER | END 2018-02-06 12:05 | disposition home or self-care (01) | LOC: M ED 10:32 | DX: S82.445A Nondisplaced spiral fracture of shaft of left fibula, initial encounter for closed fracture (principal); X50.0XXA Overexertion from strenuous movement or load, initial encounter; Y92.828 Other wilderness area as the place of occurrence of the external cause; Y93.02 Activity, running; G43.909 Migraine, unspecified, not intractable, without status migrainosus; K21.9 Gastro-esophageal reflux disease without esophagitis; E07.9 Disorder of thyroid, unspecified; F33.9 Major depressive disorder, recurrent, unspecified; F17.210 Nicotine dependence, cigarettes, uncomplicated | CPT/HCPCS: 73610 ==

== ENCOUNTER 2018-03-15 10:31 | Day surgery (SDC) | payer OTHER ==
[2018-03-15] MEDS ORDERED: NS 1,000 ML IV (13:00)
[2018-03-15] MEDS ORDERED: LIDOCAINE 2% INJ 100 MG/5 ML SDV (FOR ANES.) As Ordered (13:17)
[2018-03-15] MEDS ORDERED: fentaNYL 100 MCG/2 ML INJECTION (J3010) As Ordered (13:18)
[2018-03-15] MEDS ORDERED: PROPOFOL 200 MG/20 ML VIAL As Ordered (13:18)
== END 2018-03-15 14:24 | disposition home or self-care (01) ==
LOC: M OPP 10:31
DX: K64.8 Other hemorrhoids (principal); K58.1 Irritable bowel syndrome with constipation; R10.13 Epigastric pain; E03.9 Hypothyroidism, unspecified; K21.9 Gastro-esophageal reflux disease without esophagitis; G43.909 Migraine, unspecified, not intractable, without status migrainosus; F32.9 Major depressive disorder, single episode, unspecified; F41.9 Anxiety disorder, unspecified; F17.210 Nicotine dependence, cigarettes, uncomplicated; G40.89 Other seizures; Z79.899 Other long term (current) drug therapy; Z88.8 Allergy status to other drugs, medicaments and biological substances; Z86.69 Personal history of other diseases of the nervous system and sense organs; Z83.3 Family history of diabetes mellitus; Z80.41 Family history of malignant neoplasm of ovary
CPT/HCPCS: 45378

== ENCOUNTER → 2018-04-28 | Outpatient (REF) | payer OTHER | LOC: M LAB REF 14:37 | DX: L91.8 Other hypertrophic disorders of the skin (principal) ==

== ENCOUNTER 2018-07-31 15:34 | Emergency (ER) | payer OTHER ==
[~2018-07-31] VITALS: Ht 162.6 cm; Wt 58.2 kg
[~2018-07-31 15:34] MED LIST changes: -EFFE150C PO; +EFFE150C2 PO; +GABA-1171 PO; -GABA-279 PO; -LEVO25TA5; +LEVO25TA5 PO; +METO10TA2 PO; +MIRA3350 PO; +NORCOTAB PO; +OMEP20CA3 PO; +PAXI20TA29 PO; +PRAZ1CAP; +TUMS500C PO; +VITA500046 PO; -ZOFR20TA PO; +ZOFR4TAB14 PO; +ZOFR4TAB16 PO; -ZOFR4TAB3 PO
[2018-07-31] MEDS ORDERED: ONDANSETRON 4MG/2ML VIAL (J2405) IV ONE (16:45)
[2018-07-31] MEDS ORDERED: KETOROLAC 30 MG/ML VIAL (J1885) IV ONE (16:45)
[2018-07-31] MEDS ORDERED: NS 1,000 ML IV ONE (16:45)
[2018-07-31 16:57] LABS: BASO # 0.1 10^3/uL (0.0-0.2); BASO % 0.5 % (0.0-1.0); EOS # 0.2 10^3/uL (0.0-0.50); EOS % 1.1 % (0.0-3.0); HEMATOCRIT 46.9 % (36.0-47.0); HEMOGLOBIN 15.8 g/dl (12.0-15.5); LYMPH # 2.1 10^3/uL (1.5-4.5); LYMPH % 11.2 % (24.0-44.0); MEAN CORPUSCULAR HEMOGLOBIN 32.7 pg (27.0-33.0); MEAN CORPUSCULAR HGB CONC 33.7 g/dl (32.0-36.5); MEAN CORPUSCULAR VOLUME 97.1 fl (80.0-96.0); MONO # 1.4 10^3/uL (0.0-0.8); MONO % 7.8 % (0.0-5.0); NEUTROPHILS # 14.6 10^3/uL (1.8-7.7); NEUTROPHILS % 78.9 % (36.0-66.0); PLATELET COUNT, AUTOMATED 229 10^3/uL (150-450); RED BLOOD COUNT 4.83 10^6/uL (4.00-5.40); WHITE BLOOD COUNT 18.5 10^3/uL (4.0-10.0)
[2018-07-31 17:35] LABS: ALBUMIN 4.4 GM/DL (3.2-5.2); ALT/SGPT 20 U/L (12-78); AMYLASE 45 U/L (25-115); BILIRUBIN,TOTAL 0.3 MG/DL (0.2-1.0); BLOOD UREA NITROGEN 12 MG/DL (7-18); CALCIUM LEVEL 8.7 MG/DL (8.5-10.1); CARBON DIOXIDE LEVEL 21 MEQ/L (21-32); CHLORIDE LEVEL 110 MEQ/L (98-107); CREATININE FOR GFR 0.81 MG/DL (0.55-1.30); GLOMERULAR FILTRATION RATE > 60.0 (>60); GLUCOSE, FASTING 86 MG/DL (70-100); LIPASE 220 U/L (73-393); POTASSIUM SERUM 3.5 MEQ/L (3.5-5.1); SODIUM LEVEL 141 MEQ/L (136-145); TOTAL PROTEIN 7.8 GM/DL (6.4-8.2)
[2018-07-31] MEDS ORDERED: METOCLOPRAMIDE INJ 10MG/2ML VIAL (J2765) IV ONE (17:45)
--- NOTE | 2018-07-31 18:08 | REPVR ---
EXAM: CT Abdomen and Pelvis Without Contrast EXAM DATE/TIME: 07/31/2018 4:58 PM CLINICAL HISTORY: 38 years old, female; Pain; Abdominal pain; Generalized; Additional info: Abd pain TECHNIQUE: Axial computed tomography images of the abdomen and pelvis without contrast. All CT scans at this facility use at least one of these dose optimization techniques: automated exposure control; mA and/or kV adjustment per patient size (includes targeted exams where dose is matched to clinical indication); or iterative reconstruction. Coronal and sagittal reformatted images were created and reviewed. COMPARISON: CT ABD PELVIS W/O CONTRAST 07/28/2016 8:32 AM FINDINGS: Lower thorax: Small hiatal hernia. ABDOMEN: Liver: There is a 0.9 cm cyst in the right hepatic lobe. Gallbladder and bile ducts: Normal. No calcified stones. No ductal dilation. Pancreas: Normal. No ductal dilation. Spleen: Normal. No splenomegaly. Adrenals: Normal. No mass. Kidneys and ureters: A few subtle, punctate nonobstructing calculi in the lower pole of the left kidney. The right kidney demonstrate a 2.9 cm nonobstructing calculus in the lower pole. No obstructive uropathy. Stomach and bowel: A large volume of stool in the ascending, transverse and descending colon. Appendix: A normal appendix is seen. PELVIS: Bladder: The bladder is decompressed and not well evaluated. Reproductive: Prior hysterectomy. ABDOMEN and PELVIS: Intraperitoneal space: Normal. No free air. No significant fluid collection. Bones/joints: The degree of osseous demineralization is prominent for age. No acute fracture seen. Soft tissues: Unremarkable. Vasculature: Normal. No abdominal aortic aneurysm. Lymph nodes: Normal. No pathologically enlarged lymph nodes. IMPRESSION: 1. No acute findings identified. 2. A large volume of stool in the colon suggesting constipation. Electronically signed by: Jamilah Cortés On 07/31/2018 18:07:52 PM
[2018-07-31] MEDS ORDERED: OMEP40CA2 PO (19:05)
[2018-07-31 19:16] VITALS: BP 126/78
== END 2018-07-31 19:18 | disposition home or self-care (01) ==
LOC: M ED 15:34
DX: R10.13 Epigastric pain (principal); R11.2 Nausea with vomiting, unspecified; R31.9 Hematuria, unspecified; D72.829 Elevated white blood cell count, unspecified; K44.9 Diaphragmatic hernia without obstruction or gangrene; K76.89 Other specified diseases of liver; N20.0 Calculus of kidney; G43.909 Migraine, unspecified, not intractable, without status migrainosus; K21.9 Gastro-esophageal reflux disease without esophagitis; F41.9 Anxiety disorder, unspecified; F33.9 Major depressive disorder, recurrent, unspecified; E03.9 Hypothyroidism, unspecified; Z79.899 Other long term (current) drug therapy; Z79.890 Hormone replacement therapy; Z88.1 Allergy status to other antibiotic agents; F17.210 Nicotine dependence, cigarettes, uncomplicated
CPT/HCPCS: 74176; 80053; 81001; 81025; 82150; 83690; 85025; 96361; 96374; 96375; 99284; J1885; J2405; J2765

== ENCOUNTER → 2018-08-13 | Outpatient (CLI) | payer OTHER ==
[~2018-08-13] MED LIST changes: +OMEP40CA2 PO
[2018-08-13 13:24] LABS: HEMATOCRIT 43.6 % (36.0-47.0); HEMOGLOBIN 14.6 g/dl (12.0-15.5); MEAN CORPUSCULAR HEMOGLOBIN 32.7 pg (27.0-33.0); MEAN CORPUSCULAR HGB CONC 33.5 g/dl (32.0-36.5); MEAN CORPUSCULAR VOLUME 97.8 fl (80.0-96.0); PLATELET COUNT, AUTOMATED 224 10^3/uL (150-450); RED BLOOD COUNT 4.46 10^6/uL (4.00-5.40); WHITE BLOOD COUNT 7.9 10^3/uL (4.0-10.0)
== END ==
LOC: M LAB 13:00
PROVIDERS: ATTEND Internal Medicine
DX: E03.9 Hypothyroidism, unspecified (principal); A09 Infectious gastroenteritis and colitis, unspecified

== ENCOUNTER 2018-09-24 03:42 | Emergency (ER) | payer OTHER ==
[~2018-09-24] VITALS: Ht 157.5 cm; Wt 58.6 kg
[2018-09-24] MEDS ORDERED: BUPIVACAINE LIPOSOME/PF 1.3% 20ML VIAL (13.3MG/ML)(EXPAREL)(C9290 PER1MG) INFIL ONE (04:30)
[2018-09-24] MEDS ORDERED: CETACAINE SPRAY 5GM TOP ONE (04:30)
[2018-09-24] MEDS ORDERED: CLEO300C2 PO (04:49)
[2018-09-24 04:58] VITALS: BP 136/88
[2018-09-24] MEDS ORDERED: CODE30TA3 PO (11:33)
[2018-09-24] MEDS ORDERED: MAGICMW SSP (11:34)
== END 2018-09-24 04:59 | disposition home or self-care (01) ==
LOC: M ED 03:42
DX: K08.89 Other specified disorders of teeth and supporting structures (principal); K02.9 Dental caries, unspecified; F17.200 Nicotine dependence, unspecified, uncomplicated; Z88.1 Allergy status to other antibiotic agents; Z79.899 Other long term (current) drug therapy
CPT/HCPCS: 64400; 99283; C9290

== ENCOUNTER 2018-09-24 11:14 | Emergency (ER) | payer OTHER ==
[~2018-09-24] VITALS: Ht 157.5 cm; Wt 58.6 kg
[2018-09-24 11:14] VITALS: BP 154/88
[~2018-09-24 11:14] MED LIST changes: +CLEO300C2 PO
[2018-09-24] MEDS ORDERED: IBUPROFEN 800 MG TAB PO ONE (11:30)
[2018-09-24] MEDS ORDERED: CODE30TA3 PO (11:33)
[2018-09-24] MEDS ORDERED: MAGICMW SSP (11:34)
== END 2018-09-24 11:43 | disposition home or self-care (01) ==
LOC: M ED 11:14
DX: K08.89 Other specified disorders of teeth and supporting structures (principal); R51 Headache; K58.9 Irritable bowel syndrome, unspecified; E03.9 Hypothyroidism, unspecified; F41.9 Anxiety disorder, unspecified; F32.9 Major depressive disorder, single episode, unspecified; Z88.1 Allergy status to other antibiotic agents; Z79.899 Other long term (current) drug therapy; Z79.2 Long term (current) use of antibiotics

== ENCOUNTER → 2018-10-10 | Outpatient (CLI) | payer OTHER ==
[~2018-10-10] MED LIST changes: +CODE30TA3 PO; +MAGICMW SSP
[2018-10-10 13:01] LABS: BASO # 0.1 10^3/uL (0.0-0.2); BASO % 0.7 % (0.0-1.0); EOS # 0.2 10^3/uL (0.0-0.50); EOS % 3.1 % (0.0-3.0); HEMATOCRIT 44.6 % (36.0-47.0); HEMOGLOBIN 14.8 g/dl (12.0-15.5); LYMPH # 1.8 10^3/uL (1.5-4.5); MEAN CORPUSCULAR HEMOGLOBIN 32.5 pg (27.0-33.0); MEAN CORPUSCULAR HGB CONC 33.2 g/dl (32.0-36.5); MEAN CORPUSCULAR VOLUME 97.8 fl (80.0-96.0); MONO # 0.5 10^3/uL (0.0-0.8); MONO % 6.5 % (0.0-5.0); NEUTROPHILS # 4.8 10^3/uL (1.8-7.7); NEUTROPHILS % 65.4 % (36.0-66.0); PLATELET COUNT, AUTOMATED 212 10^3/uL (150-450); RED BLOOD COUNT 4.56 10^6/uL (4.00-5.40); WHITE BLOOD COUNT 7.4 10^3/uL (4.0-10.0)
[2018-10-10 13:33] LABS: HEMOGLOBIN A1c 5.3 %
[2018-10-10 14:03] LABS: ALBUMIN 4.1 GM/DL (3.2-5.2); ALT/SGPT 20 U/L (12-78); BILIRUBIN,TOTAL 0.5 MG/DL (0.2-1.0); BLOOD UREA NITROGEN 13 MG/DL (7-18); CALCIUM LEVEL 8.7 MG/DL (8.5-10.1); CARBON DIOXIDE LEVEL 22 MEQ/L (21-32); CHLORIDE LEVEL 110 MEQ/L (98-107); CHOLESTEROL LEVEL 191 MG/DL (<200); CHOLESTEROL RISK RATIO 4.244 (<5); CREATININE FOR GFR 0.71 MG/DL (0.55-1.30); GLOMERULAR FILTRATION RATE > 60.0 (>60); GLUCOSE, FASTING 86 MG/DL (70-100); HDL CHOLESTEROL 45 MG/DL (>40); LDL CHOLESTEROL 127 MG/DL (<100); NON-HDL-C 146 MG/DL; POTASSIUM SERUM 4.2 MEQ/L (3.5-5.1); RHEUMATOID FACTOR QUANT 25.5 IU/ML (<15.0); SODIUM LEVEL 138 MEQ/L (136-145); TOTAL 25(OH) VITAMIN D 39.5 NG/ML (30.0-100.0); TOTAL PROTEIN 7.3 GM/DL (6.4-8.2); TRIGLYCERIDES LEVEL 97 MG/DL (<150)
[2018-10-10 14:19] LABS: ERYTHROCYTE SEDIMENTATION RATE 5 mm/hr (0-20)
[2018-10-11 14:26] LABS: ANTINUCLEAR ANTIBODIES DIRECT Negative (Negative); SJOGREN'S ANTI SS-A <0.2 AI (0.0-0.9); SJOGREN'S ANTI SS-B <0.2 AI (0.0-0.9)
== END ==
LOC: M LAB 12:09
PROVIDERS: ATTEND Internal Medicine
DX: E03.9 Hypothyroidism, unspecified (principal); R53.83 Other fatigue; Z79.899 Other long term (current) drug therapy

== ENCOUNTER → 2018-10-21 | Outpatient (CLI) | payer OTHER ==
[~2018-10-21] MED LIST changes: +HYDR-3715 PO; -NORCOTAB PO; -VENL75CA PO; +VENL75CA22 PO
--- NOTE | 2018-10-21 14:18 | REP ---
Clinical: Lower respiratory tract symptoms . Comparison: 12/23/2007 . Technique: PA and lateral. Findings: The mediastinum and cardiac silhouette are normal. The lung chung are clear and without acute consolidation, effusion, or pneumothorax. The skeletal structures are intact and normal. Impression: 1. No acute cardiopulmonary process. Electronically Signed by Kwabena Duncan MD 10/21/2018 02:10 P
== END ==
LOC: M LAB 13:47 → M RAD 13:47
PROVIDERS: ATTEND Internal Medicine
DX: Z79.899 Other long term (current) drug therapy (principal)

== ENCOUNTER 2018-11-22 17:37 | Emergency (ER) | payer OTHER ==
[~2018-11-22] VITALS: Ht 157.5 cm; Wt 58.2 kg
[~2018-11-22 17:37] MED LIST changes: +ACET300T47 PO; -CODE30TA3 PO
[2018-11-22] MEDS ORDERED: METH2.5T48 PO (17:44)
[2018-11-22] MEDS ORDERED: FOLI1TAB11 PO (17:44)
[2018-11-22] MEDS ORDERED: NEXI20TA PO (17:44)
[2018-11-22] MEDS ORDERED: LINZ290C PO (17:44)
[2018-11-22] MEDS ORDERED: PARO15TA PO (17:44)
[2018-11-22] MEDS: ONDANSETRON 4MG/2ML VIAL (J2405) IV ONE (18:41)
[2018-11-22] MEDS: KETOROLAC 30 MG/ML VIAL (J1885) IV ONE (18:41)
[2018-11-22] MEDS: PANTOPRAZOLE 40MG INJ (PROTONIX) (C9113) IV ONE (18:41)
[2018-11-22] MEDS: NS 1,000 ML IV ONE (18:41)
[2018-11-22 18:54] LABS: BASO # 0.1 10^3/uL (0.0-0.2); BASO % 0.9 % (0.0-1.0); EOS # 0.2 10^3/uL (0.0-0.50); EOS % 2.4 % (0.0-3.0); HEMATOCRIT 39.6 % (36.0-47.0); HEMOGLOBIN 13.6 g/dl (12.0-15.5); LYMPH # 2.8 10^3/uL (1.5-4.5); LYMPH % 30.3 % (24.0-44.0); MEAN CORPUSCULAR HEMOGLOBIN 33.3 pg (27.0-33.0); MEAN CORPUSCULAR HGB CONC 34.3 g/dl (32.0-36.5); MEAN CORPUSCULAR VOLUME 97.1 fl (80.0-96.0); MONO # 0.7 10^3/uL (0.0-0.8); MONO % 7.5 % (0.0-5.0); NEUTROPHILS # 5.4 10^3/uL (1.8-7.7); NEUTROPHILS % 58.7 % (36.0-66.0); PLATELET COUNT, AUTOMATED 201 10^3/uL (150-450); RED BLOOD COUNT 4.08 10^6/uL (4.00-5.40); WHITE BLOOD COUNT 9.2 10^3/uL (4.0-10.0)
[2018-11-22 19:14] LABS: ALBUMIN 4.2 GM/DL (3.2-5.2); ALT/SGPT 16 U/L (12-78); BILIRUBIN,DIRECT < 0.1 MG/DL (0.0-0.2); BILIRUBIN,TOTAL 0.3 MG/DL (0.2-1.0); BLOOD UREA NITROGEN 18 MG/DL (7-18); CALCIUM LEVEL 8.3 MG/DL (8.5-10.1); CARBON DIOXIDE LEVEL 22 MEQ/L (21-32); CHLORIDE LEVEL 111 MEQ/L (98-107); CREATININE FOR GFR 0.82 MG/DL (0.55-1.30); GLOMERULAR FILTRATION RATE > 60.0 (>60); GLUCOSE, FASTING 76 MG/DL (70-100); LIPASE 139 U/L (73-393); POTASSIUM SERUM 3.5 MEQ/L (3.5-5.1); SODIUM LEVEL 140 MEQ/L (136-145); TOTAL PROTEIN 7.3 GM/DL (6.4-8.2)
--- NOTE | 2018-11-22 20:27 | REPVR ---
EXAM: CT Abdomen and Pelvis Without Contrast EXAM DATE/TIME: 11/22/2018 7:36 PM CLINICAL HISTORY: 38 years old, female; Abdominal pain; Additional info: Pelvic pain TECHNIQUE: Imaging protocol: Axial computed tomography images of the abdomen and pelvis without contrast. Coronal and sagittal reformatted images were created and reviewed. Radiation optimization: All CT scans at this facility use at least one of these dose optimization techniques: automated exposure control; mA and/or kV adjustment per patient size (includes targeted exams where dose is matched to clinical indication); or iterative reconstruction. COMPARISON: CT ABD PELVIS W/O CONTRAST 07/31/2018 4:51 PM FINDINGS: Lungs: No suspicious mass or airspace process in the visualized lung bases. ABDOMEN: Liver: Noncontrast liver shows no obvious lesion. Gallbladder and bile ducts: Gallbladder is present and shows no evidence of gallstone. Pancreas: Noncontrast pancreas shows no obvious mass or adjacent fluid. Spleen: Noncontrast spleen shows no obvious focal deformity. Adrenals: Adrenal glands are normal in appearance. Kidneys and ureters: Kidneys are unremarkable aside from nonobstructive right renal calculi. Stomach and bowel: No evidence of small bowel obstruction. Large volume of stool is seen throughout the colon. No evidence of acute diverticulitis. Appendix: Normal caliber appendix is identified, with no adjacent inflammation. PELVIS: Bladder: Bladder appears normal. Reproductive: Uterus is surgically absent. ABDOMEN and PELVIS: Intraperitoneal space: No pneumoperitoneum. Bones/joints: Degenerative changes are seen in the lumbar spine with disc height loss, endplate osteophytes and hypertrophic facet arthropathy. Soft tissues: No effacement of normal fat planes in the ischiorectal fossa. Vasculature: No aortic aneurysm. Lymph nodes: No obvious enlarged lymph nodes. Other findings: Limited evaluation without enteric or IV contrast. IMPRESSION: 1. Nonobstructive right renal calculi. No hydronephrosis or ureter stone. 2. No evidence of acute appendicitis or other source of acute pelvic pain Electronically signed by: Casimiro Doyle On 11/22/2018 20:26:58 PM
[2018-11-22] MEDS: MAGNESIUM CITRATE 300 ML BTL PO ONE (20:45)
[2018-11-22 20:46] VITALS: BP 112/74
== END 2018-11-22 21:33 | disposition home or self-care (01) ==
LOC: M ED 17:37
DX: R10.9 Unspecified abdominal pain (principal); K59.00 Constipation, unspecified
CPT/HCPCS: 74176; 80048; 80076; 83690; 85025; 96361; 96374; 96375; 99284; C9113; J1885; J2405

== ENCOUNTER → 2019-02-06 | Outpatient (CLI) | payer OTHER ==
[~2019-02-06] MED LIST changes: +FLUO10CA15 PO; -FLUO10CA8 PO; +FOLI1TAB11 PO; +IBUP-1720 PO; +KETO10TAB PO; +LACT10SO3; +LINZ290C PO; +MACR100C43 PO; +METH2.5T48 PO; +NEXI20TA PO; +OMEP-358 PO; +OMEP1CAP73 PO; -OMEP20CA3 PO; -OMEP20TA PO; -OMEP40CA2 PO; +OMEP40CA97 PO; +PARO15TA PO; +PHEN-501 PO; +PYRI1TAB5 PO; +SYNT50TA PO; +TOPI200T7 PO; +TOPI50TA9 PO
[2019-02-06 17:03] LABS: BASO # 0.1 10^3/uL (0.0-0.2); BASO % 0.7 % (0.0-1.0); EOS # 0.2 10^3/uL (0.0-0.50); EOS % 2.5 % (0.0-3.0); HEMATOCRIT 39.8 % (36.0-47.0); HEMOGLOBIN 13.6 g/dl (12.0-15.5); LYMPH # 1.9 10^3/uL (1.5-4.5); LYMPH % 25.5 % (24.0-44.0); MEAN CORPUSCULAR HEMOGLOBIN 35.2 pg (27.0-33.0); MEAN CORPUSCULAR HGB CONC 34.2 g/dl (32.0-36.5); MEAN CORPUSCULAR VOLUME 103.1 fl (80.0-96.0); MONO # 0.6 10^3/uL (0.0-0.8); NEUTROPHILS # 4.8 10^3/uL (1.8-7.7); NEUTROPHILS % 62.9 % (36.0-66.0); PLATELET COUNT, AUTOMATED 193 10^3/uL (150-450); RED BLOOD COUNT 3.86 10^6/uL (4.00-5.40); WHITE BLOOD COUNT 7.6 10^3/uL (4.0-10.0)
[2019-02-06 17:26] LABS: ALT/SGPT 19 U/L (12-78); BILIRUBIN,TOTAL 0.9 MG/DL (0.2-1.0); BLOOD UREA NITROGEN 13 MG/DL (7-18); C REACTIVE PROTEIN QUANTITATIV < 0.30 MG/DL (0.00-0.30); CALCIUM LEVEL 8.5 MG/DL (8.5-10.1); CARBON DIOXIDE LEVEL 23 MEQ/L (21-32); CHLORIDE LEVEL 112 MEQ/L (98-107); CREATININE FOR GFR 0.84 MG/DL (0.55-1.30); GLOMERULAR FILTRATION RATE > 60.0 (>60); GLUCOSE, FASTING 77 MG/DL (70-100); POTASSIUM SERUM 3.4 MEQ/L (3.5-5.1); SODIUM LEVEL 142 MEQ/L (136-145); TOTAL PROTEIN 7.4 GM/DL (6.4-8.2)
== END ==
LOC: M LAB 15:41
PROVIDERS: ATTEND Internal Medicine
DX: M05.741 Rheumatoid arthritis with rheumatoid factor of right hand without organ or systems involvement (principal)

== ENCOUNTER 2019-03-02 16:28 | Emergency (ER) | payer OTHER ==
[~2019-03-02] VITALS: Ht 162.6 cm; Wt 59.1 kg
[~2019-03-02 16:28] MED LIST changes: -FLUO10CA15 PO; +FLUO10CA8 PO; -IBUP-1720 PO; -MACR100C43 PO; -OMEP-358 PO; -OMEP1CAP73 PO; +OMEP20CA4 PO; +OMEP20TA PO; +OMEP40CA2 PO; -OMEP40CA97 PO; -PHEN-501 PO; -PYRI1TAB5 PO; -SYNT50TA PO; -TOPI200T7 PO; -TOPI50TA9 PO
[2019-03-02] MEDS ORDERED: MACR100C43 PO (19:32)
[2019-03-02] MEDS ORDERED: PHEN-501 PO (19:32)
[2019-03-02 20:04] VITALS: BP 133/88
== END 2019-03-02 20:05 | disposition home or self-care (01) ==
LOC: M ED 16:28
DX: N39.0 Urinary tract infection, site not specified (principal); Z72.0 Tobacco use; E03.9 Hypothyroidism, unspecified; K58.0 Irritable bowel syndrome with diarrhea; Z88.1 Allergy status to other antibiotic agents; Z79.899 Other long term (current) drug therapy

== ENCOUNTER 2019-03-24 04:24 | Emergency (ER) | payer OTHER ==
[~2019-03-24] VITALS: Ht 157.5 cm; Wt 59.1 kg
[~2019-03-24 04:24] MED LIST changes: +MACR100C43 PO; +PHEN-501 PO
[2019-03-24] MEDS ORDERED: PHENAZOPYRIDINE 100 MG TAB PO ONE (04:45)
[2019-03-24 04:53] LABS: APPEARANCE, URINE TURBID (CLEAR); BACTERIA, URINE AUTO NEGATIVE (NEGATIVE); BILIRUBIN, URINE AUTO NEGATIVE (NEGATIVE); BLOOD, URINE BLOOD 3+ (NEGATIVE); COLOR, URINE AMBER (YELLOW); GLUCOSE, URINE (UA) AUTO NEGATIVE (NEGATIVE); KETONE, URINE AUTO NEGATIVE (NEGATIVE); LEUKOCYTE ESTERASE, URINE AUTO 3+ (NEGATIVE); MUCUS, URINE SMALL (NEGATIVE); NITRITE, URINE AUTO NEGATIVE (NEGATIVE); PROTEIN, URINE AUTO 2+ mg/dL (NEGATIVE); RBC, URINE AUTO TNTC /HPF (0-3); SPECIFIC GRAVITY URINE AUTO 1.018 (1.002-1.035); SQUAMOUS EPITHELIAL CELL UR AU 2 /HPF (0-6); WBC, URINE AUTO TNTC /HPF (0-3)
[2019-03-24] MEDS ORDERED: BACTRIM 160MG/800MG DS TAB PO ONE (05:00)
[2019-03-24] MEDS ORDERED: BACT800T5 PO (05:01)
[2019-03-24] MEDS ORDERED: PYRI1TAB5 PO (05:01)
[2019-03-24 05:29] VITALS: BP 103/66
== END 2019-03-24 05:31 | disposition home or self-care (01) ==
LOC: M ED 04:24
DX: N30.90 Cystitis, unspecified without hematuria (principal); E03.9 Hypothyroidism, unspecified; F33.9 Major depressive disorder, recurrent, unspecified; F41.9 Anxiety disorder, unspecified; K58.9 Irritable bowel syndrome, unspecified; Z79.899 Other long term (current) drug therapy; Z79.890 Hormone replacement therapy; Z88.1 Allergy status to other antibiotic agents; F17.210 Nicotine dependence, cigarettes, uncomplicated

== ENCOUNTER → 2019-04-12 | Outpatient (CLI) | payer OTHER ==
[~2019-04-12] MED LIST changes: +FLUO10CA15 PO; -FLUO10CA8 PO; +IBUP-1720 PO; +OMEP-358 PO; +OMEP1CAP73 PO; -OMEP20CA4 PO; -OMEP20TA PO; -OMEP40CA2 PO; +OMEP40CA97 PO; +PYRI1TAB5 PO; +SYNT50TA PO; +TOPI200T7 PO; +TOPI50TA9 PO
[2019-04-12 17:22] LABS: BASO # 0.1 10^3/uL (0.0-0.2); BASO % 0.9 % (0.0-1.0); EOS # 0.3 10^3/uL (0.0-0.5); EOS % 4.2 % (0.0-3.0); HEMATOCRIT 41.3 % (36.0-47.0); LYMPH # 2.2 10^3/uL (1.5-5.0); LYMPH % 29.6 % (24.0-44.0); MEAN CORPUSCULAR HEMOGLOBIN 34.4 pg (27.0-33.0); MEAN CORPUSCULAR HGB CONC 33.9 g/dl (32.0-36.5); MEAN CORPUSCULAR VOLUME 101.5 fl (80.0-96.0); MONO # 0.4 10^3/uL (0.0-0.8); MONO % 5.7 % (0.0-5.0); NEUTROPHILS # 4.4 10^3/uL (1.5-8.5); NEUTROPHILS % 59.3 % (36.0-66.0); PLATELET COUNT, AUTOMATED 222 10^3/uL (150-450); RED BLOOD COUNT 4.07 10^6/uL (4.00-5.40); WHITE BLOOD COUNT 7.4 10^3/uL (4.0-10.0)
[2019-04-12 17:48] LABS: ALT/SGPT 19 U/L (12-78); BILIRUBIN,TOTAL 0.3 MG/DL (0.2-1.0); BLOOD UREA NITROGEN 15 MG/DL (7-18); C REACTIVE PROTEIN QUANTITATIV < 0.30 MG/DL (0.00-0.30); CALCIUM LEVEL 8.5 MG/DL (8.5-10.1); CARBON DIOXIDE LEVEL 22 MEQ/L (21-32); CHLORIDE LEVEL 109 MEQ/L (98-107); CREATININE FOR GFR 0.87 MG/DL (0.55-1.30); GLOMERULAR FILTRATION RATE > 60.0 (>58); GLUCOSE, FASTING 80 MG/DL (70-100); POTASSIUM SERUM 4.1 MEQ/L (3.5-5.1); SODIUM LEVEL 139 MEQ/L (136-145)
== END ==
LOC: M LAB 16:30
PROVIDERS: ATTEND Internal Medicine
DX: M05.741 Rheumatoid arthritis with rheumatoid factor of right hand without organ or systems involvement (principal)

== ENCOUNTER 2019-07-29 22:34 | Inpatient (IN) | payer OTHER ==
[~2019-07-29] VITALS: Ht 162.6 cm; Wt 56.8 kg
[~2019-07-29 22:34] MED LIST changes: -IBUP-1720 PO; +OMEP-172 PO; -OMEP1CAP73 PO; -SYNT50TA PO; -TOPI200T7 PO; -TOPI50TA9 PO
[2019-07-29] MEDS ORDERED: CHARCOAL ACTIVATED LIQUID 25 GM/120 ML BTL PO ONE (23:00)
[2019-07-29 23:08] LABS: BASO # 0.1 10^3/uL (0.0-0.2); BASO % 0.5 % (0.0-1.0); EOS # 0.1 10^3/uL (0.0-0.5); EOS % 0.5 % (0.0-3.0); HEMOGLOBIN 14.7 g/dl (12.0-15.5); LYMPH # 1.7 10^3/uL (1.5-5.0); MEAN CORPUSCULAR HEMOGLOBIN 32.9 pg (27.0-33.0); MEAN CORPUSCULAR HGB CONC 32.7 g/dl (32.0-36.5); MEAN CORPUSCULAR VOLUME 100.7 fl (80.0-96.0); MONO # 0.8 10^3/uL (0.0-0.8); MONO % 5.5 % (0.0-5.0); NEUTROPHILS # 12.4 10^3/uL (1.5-8.5); NEUTROPHILS % 82.2 % (36.0-66.0); PLATELET COUNT, AUTOMATED 204 10^3/uL (150-450); RED BLOOD COUNT 4.47 10^6/uL (4.00-5.40)
[2019-07-29] MEDS: NS 1,000 ML IV SCH (23:22)
[2019-07-29 23:27] LABS: HCG, SERUM QUALITATIVE NEGATIVE (NEGATIVE)
[2019-07-29 23:40] LABS: ACETAMINOPHEN LEVEL < 2.0 UG/ML (10.0-30.0); ALBUMIN 3.9 GM/DL (3.2-5.2); ALT/SGPT 24 U/L (12-78); BILIRUBIN,DIRECT 0.1 MG/DL (0.0-0.2); BILIRUBIN,TOTAL 0.3 MG/DL (0.2-1.0); BLOOD UREA NITROGEN 9 MG/DL (7-18); CALCIUM LEVEL 7.9 MG/DL (8.5-10.1); CARBON DIOXIDE LEVEL 24 MEQ/L (21-32); CHLORIDE LEVEL 115 MEQ/L (98-107); CPK CREATINE PHOSPHOKINASE 122 U/L (26-192); CREATININE FOR GFR 0.84 MG/DL (0.55-1.30); ETHYL ALCOHOL (ETHANOL) 0.152 % (0.000-0.010); GLOMERULAR FILTRATION RATE > 60.0 (>58); GLUCOSE, FASTING 68 MG/DL (70-100); SALICYLATE LEVEL 3.8 MG/DL (5.0-30.0); SODIUM LEVEL 146 MEQ/L (136-145); TOTAL PROTEIN 7.6 GM/DL (6.4-8.2)
[2019-07-29 23:46] LABS: AMPHETAMINES LEVEL URINE NEGATIVE (NEGATIVE); BARBITURATES URINE NEGATIVE (NEGATIVE); BENZODIAZEPINES URINE NEGATIVE (NEGATIVE); CANNABINOIDS URINE NEGATIVE (NEGATIVE); COCAINE METABOLITE URINE NEGATIVE (NEGATIVE); METHADONE URINE NEGATIVE (NEGATIVE); OPIATES URINE NEGATIVE (NEGATIVE); PHENCYCLIDINE URINE NEGATIVE (NEGATIVE)
[2019-07-30] MEDS ORDERED: ACETAMINOPHEN TAB 650MG DOSE (2X325MG) PO ONE (02:00)
[2019-07-30] MEDS: NS 1,000 ML IV SCH ×2 (05:35→12:15)
--- NOTE | 2019-07-30 06:02 | ECGEPIP ---
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
[2019-07-30] MEDS ORDERED: TOPIRAMATE (TopAMAX) 100 MG TAB PO ONE (10:15)
[2019-07-30] MEDS ORDERED: LEVOTHYROXINE 50MCG TABLET (0.05MG) PO ONE (10:15)
[2019-07-30] MEDS ORDERED: PILL CUTTER 1 EACH XX PRN (11:45)
[2019-07-30] MEDS ORDERED: IBUP-1720 PO (12:21)
[2019-07-30] MEDS ORDERED: SYNT50TA PO (12:21)
[2019-07-30] MEDS ORDERED: TOPI50TA9 PO (12:21)
[2019-07-30] MEDS ORDERED: PARO15TA PO (12:21)
[2019-07-30] MEDS ORDERED: TOPI200T7 PO (12:21)
[2019-07-31] MEDS ORDERED: LEVOTHYROXINE 50MCG TABLET (0.05MG) PO SCH (06:00)
[2019-07-31] MEDS ORDERED: LEVOTHYROXINE 50MCG TABLET (0.05MG) PO ONE (07:00)
[2019-07-31] MEDS ORDERED: TOPIRAMATE (TopAMAX) 100 MG TAB PO ONE (09:00)
[2019-07-31] MEDS ORDERED: TOPIRAMATE (TopAMAX) 25 MG TAB PO ONE (09:00)
[2019-07-31] MEDS ORDERED: TOPIRAMATE (TopAMAX) 25 MG TAB PO SCH (09:00)
[2019-07-31] MEDS ORDERED: TOPIRAMATE (TopAMAX) 100 MG TAB PO SCH (09:00)
[2019-07-31] MEDS ORDERED: NICOTINE 21MG/24HR 1 EA TRANSDERMAL TD ONE (09:45)
[2019-07-31] MEDS ORDERED: IBUPROFEN 400 MG TAB PO PRN (13:30)
[2019-07-31] MEDS ORDERED: SUMAtriptan SUCCINATE 6 MG/0.5 ML VIAL SC PRN (13:30)
[2019-07-31] MEDS ORDERED: ACETAMINOPHEN TAB 650MG DOSE (2X325MG) PO PRN (13:30)
[2019-07-31] MEDS ORDERED: MOM 30ML SUSPENSION UDC PO PRN (13:30)
[2019-07-31] MEDS ORDERED: OLANZapine ORAL DISINTEGRATING TAB 5MG PO PRN (14:00)
[2019-07-31] MEDS ORDERED: LORazepam 2 MG TAB PO PRN (15:30)
[2019-07-31] MEDS: THIAMINE 100 MG TAB PO SCH (16:39)
[2019-07-31 18:00] VITALS: BP 121/79
[2019-07-31 23:20] VITALS: BP 121/79
[2019-08-01] MEDS: LEVOTHYROXINE 50MCG TABLET (0.05MG) PO SCH (06:03)
[2019-08-01 06:41] VITALS: BP 114/79
[2019-08-01] MEDS: MULTIVITAMINS/MINERALS THERAP 1 TAB PO SCH (08:52)
[2019-08-01] MEDS: FOLIC ACID 1 MG TAB PO SCH (08:52)
[2019-08-01] MEDS: THIAMINE 100 MG TAB PO SCH ×2 (08:52→20:18)
[2019-08-01] MEDS: TOPIRAMATE (TopAMAX) 25 MG TAB PO SCH (08:53)
[2019-08-01] MEDS: TOPIRAMATE (TopAMAX) 100 MG TAB PO SCH (08:53)
--- NOTE | 2019-08-01 09:44 | MHHPEPDOC ---
General Legal Status: 9.39 Chief Complaint "I wish I didn't OD." History of Present Illness HISTORY OF THE PRESENT ILLNESS: Patient is a 39 -year-old , female, who was brought in to the ED after overdosing with twenty 30 mg paxils. She was angry because she found out her her had cheated on her again. Her friend saw her take the pills and called 911. Pt denied SI, stating that she took the OD because she was angry. Per Little Gonzales RN, pt told her initially john she was suicidal but once she found out that she was going to have a mental health evaluation she told the RN that she did it to make her mad and that she knew what to say so that would be DC. When TW asked her if she had ever attempted suicide before she stated that she took pills once before but that it was not a suicide attempt. Pt denied any hx of self-harm. She denied both AH and VH. Pt did not appear to be psychotic. Pt did complain of depressed mood, anxiety, poor concentration, and erratic energy levels. Pt has had two previous admissions to [facility] and has a dx of MDD and anxiety. She has OP tx at [facility]. Pt reports that she drinks alcohl to the point of intoxication every weekend and her DARBY upon arrival was 0.152. Pt denies drug use and tox screen was negative Psychiatric Review of Systems Depression (2 or more weeks): depressed mood, decreased energy, difficulty concentrating, suicidal thoughts Steph (4 or more days of): denies Psychosis: denies PTSD: denies Anxiety: situational anxiety, stressor related anxiety Anxiety/ 6 months or more of: difficulty concentrating, personality cluster A,BC (b) Past Psychiatric History Previous Psychiatric Diagnosis: Depression. Previous Psychiatric Admissions: yes, cannot recall previous admission. Suicide Attempts: denies. Psychiatric Follow-up: Bo Faye; at [facility]. Psychiatric medications: paxil 20mg daily Past Medical History Medical Problems migraines, hypothyroidism, Head Injury: No Seizures: No Hospitalizations: No Surgeries: Yes (hysterectomy) Family Medical/Psychiatric HX Psychiatric Disorders: Yes (mother- depression) Addiction: No Suicide Attemps/Completions: No Addiction History nicotine (pack a day- 23 years), alcohol (in interview said that she drank every other weekend. In ED report states she drank every weekend to the point of intoxication and that her DARBY on admission was 0.152, states she drinks roughly 2-3 weekends/month) Social History Childhood: born and raised [place], parents twice when pt young, 1 older brother that she continues to have a good relationsip with, states childhood was bad- parents were alcoholics and fought all the time. Abuse/Trauma: denies. Current Living Situation: lives with two daughters and in a house in [place]. Education: high school. 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 Social Support: mother, daughters. Legal: denies. Marital: , 2 daughters 18 and 14 Mental Status Examination General Appearance: well groomed, appears stated age, hospital scubs/clothing Build: average Demeanor: withdrawn Eye Contact: fair Activity: slowed Behavior: cooperative, withdrawn Speech: clear, slow, normal volume Mood: depressed Mood "I'm okay. I miss my kids" Affect: constricted, flat Thought Process: logical/linear, depressed, slow Thought Content (Delusions): none reported, denies SI, HI, AVH Thought Content (Other): none reported, appropriate Thought Content (Aggressive): none reported Perception (Hallucinations): none reported Perception (Other): none reported Cognition (Impairment of): none reported Cognition(Intelligence Est.): average Oriented: Awake, Alert, Oriented times three Insight: fair Judgment: Poor Psychosis: Denies Diagnoses 1.Adjustment d/o with depressed mood 2. anxiety d/o unspecified 3. alcohol use d/o 4. borderline personality d/o by history A-FIB/CHADSVASC A-FIB History Current/History of A-Fib/PAF?: No Current PO Anticoag Therapy: No Assessment Pt seen and states she "is okay. I just miss my kids." Pt states that she is okay now and wants to go home. Pt appears depressed, withdrawn and was short with her responses. She is upset that her had "cheated on her" but she recently found out that "they were only talking." Pt now regrets taking the twenty Paxils. Pt stated that was not trying to kill herself with this overdose, rather she was trying to make her mad "but it did not work." Pt also admitted that she has taken pills in attempt to overdose in the past but "I was not trying to kill myself." States she regrets her OD and does not ever plan to OD again "on anything." Pt was previously staying in the ED and was unable to attend group, she has been encouraged to attend groups while she is here as part of her treatment. She denies insomnia, SI/HI, hallucinations, and delusions. Pt states pazil is beneficial for her mood and that OD was impulsive. States she feels safe restarting it and denies desire to ever OD on it again. Pt feels safe here. Initial Treatment Plan 1. Patient was admitted on a 9.39 status. 2. Complete history was obtained. 3. With patients permission, family will be contacted and database will be expanded. 4. Patients medication regimen will be reviewed and changed accordingly. 5. Patient will be provided with protected environment. 6. Patient will be treated with individual, group, and milieu therapies. 7. Patient will receive supportive psych-education. 8. Discharge planning will commence immediately. 9. Outpatient follow-up treatment will be strongly recommended. 10. The initial treatment plan will focus initially on: * Depression. * Risk for suicide. 11. Medications: Paxil 20 mg for depression (denies she will OD on it and feels safe, finds beneficial taking it) ESTIMATED LENGTH OF STAY: 3-5 DAYS. TIME SPENT COUNSELING AND COORDINATING INITIAL CARE: 60 minutes. Vital Signs Vital Signs Date Time Temp Pulse Resp B/P (MAP) Pulse Ox O2 Delivery O2 Flow Rate FiO2 08/01/19 06:41 97.6 63 12 114/79 (91) 07/31/19 13:48 99 Room Air Medications Scheduled Esomeprazole Magnesium (Nexium 24Hr) 20 Mg Tablet.dr, 20 MG PO DAILY, (Reported) Levothyroxine Sodium (Synthroid) 50 Mcg Tablet, 50 MCG PO DAILY, (Reported) Linaclotide (Linzess) 290 Mcg Capsule, 290 MG PO DAILY, (Reported) Paroxetine (Paroxetine HCl) 30 Mg Tablet, 30 MG PO DAILY, (Reported) Topiramate (Topiramate) 200 Mg Tablet, 200 MG PO DAILY, (Reported) TOTAL DOSE 250 MG Topiramate (Topiramate) 50 Mg Tablet, 50 MG PO DAILY, (Reported) TOTAL DOSE 250 MG Scheduled PRN Ibuprofen (Ibuprofen) 200 Mg Tablet, 600 MG PO Q8H PRN for PAIN, (Reported) Sumatriptan Succinate (Imitrex) 6 Mg/0.5 Ml Inj, 6 MG SC PRN PRN for HEADACHE, (Reported) Allergies Coded Allergies: ciprofloxacin (Verified Allergy, Unknown, itching, 03/24/19) SHARIF MCGEE OMS-IV Aug 01, 2019 08:22 VARGAS PIPER DO Aug 01, 2019 10:47
[2019-08-01 11:00] VITALS: BP 114/79
[2019-08-01] MEDS ORDERED: PARoxetine 20 MG TAB PO ONE (11:15)
[2019-08-01] MEDS: NICOTINE 14 MG/24 HR TRANSDERMAL TD SCH (13:01)
[2019-08-01 13:06] LABS: BASO # 0.1 10^3/uL (0.0-0.2); BASO % 0.8 % (0.0-1.0); EOS # 0.1 10^3/uL (0.0-0.5); EOS % 2.1 % (0.0-3.0); HEMATOCRIT 45.1 % (36.0-47.0); HEMOGLOBIN 14.5 g/dl (12.0-15.5); LYMPH # 1.4 10^3/uL (1.5-5.0); LYMPH % 21.5 % (24.0-44.0); MEAN CORPUSCULAR HEMOGLOBIN 32.7 pg (27.0-33.0); MEAN CORPUSCULAR HGB CONC 32.2 g/dl (32.0-36.5); MEAN CORPUSCULAR VOLUME 101.6 fl (80.0-96.0); MONO # 0.4 10^3/uL (0.0-0.8); MONO % 6.1 % (0.0-5.0); NEUTROPHILS # 4.5 10^3/uL (1.5-8.5); NEUTROPHILS % 69.2 % (36.0-66.0); PLATELET COUNT, AUTOMATED 205 10^3/uL (150-450); RED BLOOD COUNT 4.44 10^6/uL (4.00-5.40); WHITE BLOOD COUNT 6.5 10^3/uL (4.0-10.0)
[2019-08-01 13:49] LABS: BLOOD UREA NITROGEN 16 MG/DL (7-18); CALCIUM LEVEL 8.6 MG/DL (8.5-10.1); CARBON DIOXIDE LEVEL 23 MEQ/L (21-32); CHLORIDE LEVEL 109 MEQ/L (98-107); FOLATE > 24.0 NG/ML (>5.4); FREE THYROXINE INDEX 2.6 % (1.3-4.8); GLOMERULAR FILTRATION RATE > 60.0 (>58); GLUCOSE, FASTING 113 MG/DL (70-100); SODIUM LEVEL 139 MEQ/L (136-145); T UPTAKE 35 % (30-39); THYROXINE (T4) 7.4 UG/DL (4.5-12.0); VITAMIN B12 LEVEL 334 PG/ML (247-911)
--- NOTE | 2019-08-01 13:55 | HPE ---
DATE OF ADMISSION: 08/01/2019 PRIMARY CARE PHYSICIAN: None. PREVIOUS ATM SERVICER: Nader Wang, DO The patient would like to be referred to a different real estate account executive at hospital discharge. CHIEF COMPLAINT: The patient is admitted for evaluation for a suicidal ideation after intentional drug overdose. HISTORY OF PRESENTING ILLNESS: This is a 39-year-old female with medical history significant for migraines, anxiety, depression, reflux, endometriosis, tobacco abuse a pack a day, and chronic alcohol abuse. The patient was in her usual state of health when she was admitted to the inpatient mental health unit after intentional drug overdose with Paxil 30 mg tablets after finding out that her was cheating on her. The patient denied any suicidal ideation but was admitted for further evaluation. The patient otherwise has had no other medical complaints. Her migraines have been well controlled. Usually has a migraine once per month. She continues to smoke cigarettes but denies any hemoptysis, cough, shortness of breath, dyspnea on exertion, and has endometriosis but has had no abdominal or pelvic pain recently. The patient continues to smoke cigarettes, almost a pack a day, for several decades. Currently, with a nicotine patch that she has had for several days. 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 She otherwise denies any fever, chills, changes in vision, chest pain, pressure, tightness, shortness of breath, hemoptysis, lower extremity edema, nausea, vomiting, diarrhea, abdominal pain, constipation. She denies any upper or lower extremity weakness. Denies any palpitations, lightheadedness, dizziness, urgency, frequency, flank pain. Denies any weight gain, weight loss, polydipsia, or polyphagia. Denies any night sweats, cough, chills. Denies any ear discharge, tinnitus, vertigo, sore throat, diplopia. The patient otherwise denies any paresthesias. The patient admits to having an abnormal breast examination previously about 2-[address] Wang. No followup was made, as the patient was noncompliant and did not return. No prior mammograms in the past. She could not remember if it was right or left. She does also have a history of a small bowel biopsy by esophagogastroduodenoscopy (EGD) in 2012 showing scattered chronic inflammation but denies any bright red blood per rectum, melena, black tarry stools, abdominal pain, joint pains, or mouth ulcers. No prior diagnoses of inflammatory bowel disease, ulcerative colitis, or Crohn disease. PAST MEDICAL HISTORY: 1. Anxiety. 2. Depression. 3. Reflux. 4. Migraine headaches. 5. Endometriosis. 6. Tobacco abuse. 7. Abnormal breast examination with no prior mammogram. PAST SURGICAL HISTORY: 1. Hysterectomy in 2008. 2. EGD with small bowel biopsy with scattered chronic inflammation. CURRENT HOSPITAL MEDICATIONS: - Paxil 20 mg daily - Topamax 50 mg daily and 200 mg daily - folic acid 1 mg daily - multivitamin one tablet daily - nicotine patch 14 mg daily - Synthroid 50 mcg daily - Ativan 2 mg as needed per protocol - thiamine 100 mg twice a day - Zyprexa 5 mg every 4 hours as needed for agitation - Tylenol 650 every 6 as needed for headache - ibuprofen 400 mg every 6 as needed for pain - milk of magnesia 30 mL daily as needed for constipation - Imitrex 6 mg twice a day subcutaneous as needed for headache SOCIAL HISTORY: Lives in [place]. . Two children. 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 Smokes a pack a day. The patient drinks "to get drunk" on weekends or every 2 weeks. Usually drinks mixed drinks. Denies any recreational drug use, marijuana, cocaine, or heroin. Denies any tattoos. FAMILY HISTORY: Maternal grandmother in her 90s with "some kind of cancer." Paternal grandmother in her 80s, unknown reason. Father's medical problems are unknown. Mother alive in her 60s, about 61-62 years of age with hypertension and diabetes. One brother 2 years older at the age of 42 with hypertension. Children are alive and well. REVIEW OF SYSTEMS: Per history of present illness (HPI). Twelve-point system otherwise negative. PHYSICAL EXAMINATION: Temperature 97.6, pulse 63, respiratory rate 12, blood pressure 114/79, 99% on room air Generally, the patient is awake, alert, oriented times three. Anicteric sclerae. No jaundice. Able to speak in full sentences. No conversational dyspnea. Pupils are round, reactive to light and accommodation. Extraocular muscles are intact. Normocephalic, atraumatic. No jugular venous distention (JVD), thyromegaly, or cervical lymphadenopathy. No pharyngeal erythema. LUNGS: Are clear to auscultation. No wheezing, rales, or rhonchi. Air entry is equal bilaterally. No adventitious breath sounds. HEART: S1, S2, sinus rhythm. No murmurs, rubs, or gallops. Normal AP diameter. Nondisplaced point of maximal impulse. ABDOMEN: Is soft, nontender, nondistended. Positive bowel sounds. No rebound or guarding. No hepatosplenomegaly. No abdominal bruits. EXTREMITIES: No cyanosis, clubbing, or any pitting edema. BREAST EXAMINATION: Bilaterally. Areola is normal without any discharge. Palpation of the upper outer breasts bilaterally are normal. The patient has no unusual nodules or masses noted on examination. There is no axillary lymphadenopathy bilaterally. LABORATORY DATA: 07/29/2019. White count 15, hemoglobin 14, hematocrit 45, platelet count 204. Sodium 146, potassium 4, chloride 115, bicarbonate 24, BUN 9, creatinine 0.84, glucose 68, calcium 7.9, total bilirubin (T Bili) 0.3, direct bilirubin 0.1, AST 20, ALT 24, alkaline phosphatase 68, total CK 122, total protein 7.6, albumin 3.9, TSH 4.0, hCG is negative. Toxicology screen: Salicylate 3.8, negative urine opiate, methadone negative, 2 acetaminophen, negative barbiturate, phencyclidine, amphetamine, benzodiazepine, cocaine, cannabinoids, ethyl alcohol 0.152. ASSESSMENT AND PLAN: This is a 39-year-old female with history of migraines, chronic alcohol and tobacco abuse, anxiety, depression, reflux, endometriosis, abnormal prior breast examination with no followup, hysterectomy in 2008, EGD with small bowel biopsy and scattered chronic inflammation, admitted to the inpatient mental health unit due to intentional drug overdose after finding out her was cheating on her, to be evaluated for suicidal ideation. ACUTE ISSUES: Are as follows: 1. Intentional drug overdose. The patient is currently being managed by a psychiatrist. She is continued on Paxil, Topamax, and Zyprexa. 2. Migraines. Currently controlled. The patient has one migraine per month. She is on Imitrex as needed, 6 mg subcutaneous twice a day. 3. Active tobacco abuse. The patient has been counseled about tobacco cessation. Nicotine patch 14 mg daily. 4. Hypothyroidism. On Synthroid 50 mcg daily, with elevated TSH, may need to adjust dose. Check thyroid profile first prior to changing the patient's dose at this time. 5. Chronic alcohol abuse. Currently, on folic acid and thiamine. Multivitamin one tablet daily. Monitor for withdrawal symptoms. 6. Anxiety and depression. Managed by psychiatrist. 7. Abnormal breast examination. The patient has history of abnormal breath examination. Currently with no unusual masses noted on physical examination today. No axillary lymphadenopathy. The patient is to be referred to a real estate account executive as outpatient for repeat breast examination and mammogram. The patient has no prior history of breast cancer or any family history of breast cancer. 8. Deep venous thrombosis (DVT) prophylaxis. Encourage ambulation. MTDD
[2019-08-01 16:31] VITALS: BP 128/77
[2019-08-01 20:06] VITALS: BP 123/89
[2019-08-02] MEDS: LEVOTHYROXINE 50MCG TABLET (0.05MG) PO SCH (06:00)
[2019-08-02 06:47] VITALS: BP 95/60
[2019-08-02] MEDS: TOPIRAMATE (TopAMAX) 25 MG TAB PO SCH (08:30)
[2019-08-02] MEDS: NICOTINE 14 MG/24 HR TRANSDERMAL TD SCH (08:31)
[2019-08-02] MEDS: MULTIVITAMINS/MINERALS THERAP 1 TAB PO SCH (08:31)
[2019-08-02] MEDS: FOLIC ACID 1 MG TAB PO SCH (08:31)
[2019-08-02] MEDS: THIAMINE 100 MG TAB PO SCH (08:31)
[2019-08-02] MEDS: TOPIRAMATE (TopAMAX) 100 MG TAB PO SCH (08:31)
[2019-08-02] MEDS ORDERED: PARoxetine 20 MG TAB PO SCH (09:00)
[2019-08-02] MEDS ORDERED: PARO15TA PO (11:35)
[2019-08-02] MEDS ORDERED: TOPI50TA9 PO (11:35)
[2019-08-02] MEDS ORDERED: TOPI200T7 PO (11:35)
--- NOTE | 2019-08-02 11:46 | MHDSPDOC ---
[facility] Discharge Summary Discharge Summary DATE OF ADMISSION: Jul 31, 2019 at 13:18 DATE OF DISCHARGE: Aug 02, 2019 DISCHARGE DIAGNOSES: 1. Adjustment d/o with depressed mood 2. anxiety d/o unspecified 3. alcohol use d/o 4. borderline personality d/o by history REASON FOR ADMISSION: Patient is a 39 -year-old , female, who was brought in to the ED after overdosing with twenty 30 mg paxils. She was angry because she found out her her had cheated on her again. Her friend saw her take the pills and called 911. Pt denied SI, stating that she took the OD because she was angry. Per Little Gonzales RN, pt told her initially john she was suicidal but once she found out that she was going to have a mental health evaluation she told the RN that she did it to make her mad and that she knew what to say so that would be DC. When TW asked her if she had ever attempted suicide before she stated that she took pills once before but that it was not a suicide attempt. Pt denied any hx of self-harm. She denied both AH and VH. Pt did not appear to be psychotic. Pt did complain of depressed mood, anxiety, poor concentration, and erratic energy levels. Pt has had two previous admissions to [facility] and has a dx of MDD and anxiety. She has OP tx at [facility]. Pt reports that she drinks alcohl to the point of intoxication every weekend and her DARBY upon arrival was 0.152. Pt denies drug use and tox screen was negative. Pt seen and states she "is okay. I just miss my kids." Pt states that she is okay now and wants to go home. Pt appears depressed, withdrawn and was short with her responses. She is upset that her had "cheated on her" but she recently found out that "they were only talking." Pt now regrets taking the twenty Paxils. Pt stated that was not trying to kill herself with this overdose, rather she was trying to make her mad "but it did not work." Pt also admitted that she has taken pills in attempt to overdose in the past but "I was not trying to kill myself." States she regrets her OD and does not ever plan to OD again "on anything." Pt was previously staying in the ED and was unable to attend group, she has been encouraged to attend groups while she is here as part of her treatment. She denies insomnia, SI/HI, hallucinations, and delusions. Pt states paxil is beneficial for her mood and that OD was impulsive. States she feels safe restarting it and denies desire to ever OD on it again. Pt feels safe here. CONSULTANTS INVOLVED: none TREATMENT AND PROGRESS ON THE UNIT : Pt was admitted to [facility], seen for psychiatric assessment and restarted on paxil 20mg daily for mood and anxiety as she states it's beneficial and she is not going to OD on it, feels safe taking it. She was provided trazodone 50mg qhs prn insomnia. Pt found her medications beneficial and tolerated them well. She attended groups daily during her stay. Her symptoms improved with treatment. On day of discharge she denied depression, anxiety, insomnia, SI/HI, hallucinations, delusions. She was discharged home with follow-up at [facility]. She felt safe for discharge. DISCHARGE ASSESSMENT: Pt seen and states that her mood is "good". She continues to regret and be slightly embarrassed about her recent OD and states she's never going to do that again as "it's not worth it." She is motivated to work on her marriage outpatient with counseling she hopes her will agree to go. States she looking forward to going home and being with her daughters that she misses. States she slept well last night. Feels she is tolerating his medications and they're beneficial. She is attending groups and finding them helpful. She denies depression, anxiety, insomnia, SI/HI, hallucinations, delusions. Pt feels safe to d/c home today. MENTAL STATUS EXAMINATION ON DISCHARGE: General Appearance: well groomed, appears stated age, hospital scrubs/clothing Build: average Demeanor: cooperative Eye Contact: good Activity: average Behavior: cooperative Speech: clear, reg rate, normal volume Mood: euthymic, moderate range Mood "good" Affect: congruent, moderate range, appropriate Thought Process: logical/linear, depressed, slow Thought Content (Delusions): none reported, denies SI, HI, AVH Thought Content (Other): none reported, appropriate Thought Content (Aggressive): none reported Perception (Hallucinations): none reported Perception (Other): none reported Cognition (Impairment of): none reported Cognition(Intelligence Est.): average Oriented: Awake, Alert, Oriented times three Insight: good Judgment: good Psychosis: Denies MEDICATIONS ON DISCHARGE: Paxil 20 mg daily PLAN/FOLLOWUP ARRANGEMENTS: D/c home with follow-up at [facility]. The amount of time spent in the coordination of care for this patient was approximately 30 minutes. Vital Signs/I&Os Vital Signs Date Time Temp Pulse Resp B/P (MAP) Pulse Ox O2 Delivery O2 Flow Rate FiO2 08/02/19 06:47 98.6 64 16 95/60 (72) 07/31/19 13:48 99 Room Air Laboratory Data Labs 24H Laboratory Tests 2 08/01/19 12:49: Immature Granulocyte % (Auto) 0.3, Neutrophils (%) (Auto) 69.2H, Lymphocytes (%) (Auto) 21.5L, Monocytes (%) (Auto) 6.1H, Eosinophils (%) (Auto) 2.1, Basophils (%) (Auto) 0.8, Neutrophils # (Auto) 4.5, Lymphocytes # (Auto) 1.4L, Monocytes # (Auto) 0.4, Eosinophils # (Auto) 0.1, Basophils # (Auto) 0.1, Nucleated Red Blood Cells % (auto) 0.0 08/01/19 12:50: Anion Gap 7L, Glomerular Filtration Rate > 60.0, Calcium Level 8.6, Vitamin B12 Level 334, Folate > 24.0, Thyroid Stimulating Hormone (TSH) 5.960H, Free Thyroxine Index 2.6, Thyroxine (T4) 7.4, Triiodothyronine (T3) Uptake 35 CBC/BMP Laboratory Tests 08/01/19 12:49 08/01/19 12:50 Medications Scheduled Esomeprazole Magnesium (Nexium 24Hr) 20 Mg Tablet.dr, 20 MG PO DAILY, (Reported) Levothyroxine Sodium (Synthroid) 50 Mcg Tablet, 50 MCG PO DAILY, (Reported) Linaclotide (Linzess) 290 Mcg Capsule, 290 MG PO DAILY, (Reported) Paroxetine (Paroxetine HCl) 30 Mg Tablet, 30 MG PO DAILY for mood, #10 Topiramate (Topiramate) 200 Mg Tablet, 200 MG PO DAILY for mood, #10 TOTAL DOSE 250 MG Topiramate (Topiramate) 50 Mg Tablet, 50 MG PO DAILY for mood, #10 TOTAL DOSE 250 MG Scheduled PRN Ibuprofen (Ibuprofen) 200 Mg Tablet, 600 MG PO Q8H PRN for PAIN, (Reported) Sumatriptan Succinate (Imitrex) 6 Mg/0.5 Ml Inj, 6 MG SC PRN PRN for HEADACHE, (Reported) Allergies Coded Allergies: ciprofloxacin (Verified Allergy, Unknown, itching, 03/24/19) VARGAS PIPER DO Aug 02, 2019 11:46
== END 2019-08-02 11:48 | disposition home or self-care (01) | DRG 754 ==
LOC: M ED 22:34 → M ED INP 07-31 13:18 → M PSY 07-31 14:10
PROVIDERS: ADMIT Psychiatry & Neurology Addiction Medicine; ATTEND Psychiatry & Neurology Addiction Medicine
DX: F43.21 Adjustment disorder with depressed mood (principal); R45.851 Suicidal ideations; F41.9 Anxiety disorder, unspecified; F60.3 Borderline personality disorder; Z79.899 Other long term (current) drug therapy; Z88.8 Allergy status to other drugs, medicaments and biological substances; F17.200 Nicotine dependence, unspecified, uncomplicated; G43.909 Migraine, unspecified, not intractable, without status migrainosus; K21.9 Gastro-esophageal reflux disease without esophagitis; E03.9 Hypothyroidism, unspecified; N64.89 Other specified disorders of breast; F10.10 Alcohol abuse, uncomplicated

== ENCOUNTER → 2019-11-22 | Outpatient (CLI) | payer OTHER ==
[~2019-11-22] MED LIST changes: +IBUP-1720 PO; -OMEP-172 PO; +OMEP1CAP73 PO; +SYNT50TA PO; +TOPI200T7 PO; +TOPI50TA9 PO; +[UNRECOGNIZED DRUG - REMARK] PO
== END ==
LOC: M LABSMTC 10:08
PROVIDERS: ATTEND Anesthesiology
DX: Z01.818 Encounter for other preprocedural examination (principal); Z11.59 Encounter for screening for other viral diseases

== ENCOUNTER 2019-11-24 07:03 | Day surgery (SDC) | payer OTHER ==
[~2019-11-24] VITALS: Ht 162.6 cm; Wt 60.3 kg
[~2019-11-24 07:03] MED LIST changes: +NS 1,000 ML IV ONE
[2019-11-24] MEDS ORDERED: PAXI20TA29 PO (07:35)
[2019-11-24] MEDS ORDERED: propofoL 200 MG/20 ML VIAL As Ordered ONE (08:17)
[2019-11-24] MEDS ORDERED: fentaNYL 100 MCG/2 ML INJECTION (J3010) As Ordered ONE (08:17)
[2019-11-24] MEDS ORDERED: LIDOCAINE 2% 100MG/5ML SDV (FOR ANES.) As Ordered ONE (08:17)
--- NOTE | 2019-11-24 08:20 | ROOR ---
Patient Name: Seema Valenzuela Procedure Date: 11/24/2019 8:07 AM Date of : 1980 Age: 39 Room: [facility] Gender: Female Note Status: Finalized Procedure: Upper GI endoscopy Indications: Generalized abdominal pain, Suspected irritable bowel syndrome, Eructation Providers: Musa PATIÑO MD Referring MD: Maricel ZAMORANO MD Requesting Provider: Medicines: Monitored Anesthesia Care Complications: No immediate complications. Procedure: Pre-Anesthesia Assessment: - The heart rate, respiratory rate, oxygen saturations, blood pressure, adequacy of pulmonary ventilation, and response to care were monitored throughout the procedure. The Endoscope was introduced through the mouth, and advanced to the third part of duodenum. The upper GI endoscopy was accomplished without difficulty. The patient tolerated the procedure well. Findings: The esophagus was normal. The stomach was normal. The examined duodenum was normal. Biopsies for histology were taken with a cold forceps in the second portion of the duodenum and in the third portion of the duodenum for evaluation of celiac disease. Impression: - Normal esophagus. - Normal stomach. - Normal examined duodenum. - Biopsies were taken with a cold forceps for evaluation of celiac disease. Recommendation: - Observe patient's clinical course. - Return to referring physician as previously scheduled. Musa Patiño MD Musa PATIÑO MD 11/24/2019 8:20:06 AM Electronically signed by Musa PATIÑO MD Number of Addenda: 0 Note Initiated On: 11/24/2019 8:07 AM Estimated Blood Loss: Estimated blood loss: none.
--- NOTE | 2019-11-24 08:40 | ROOR ---
Patient Name: Seema Valenzuela Procedure Date: 11/24/2019 8:08 AM Date of : 1980 Age: 39 Room: [facility] Gender: Female Note Status: Finalized Procedure: Colonoscopy Indications: Generalized abdominal pain, Irritable bowel syndrome with constipation Providers: Musa PATIÑO MD Referring MD: Maricel ZAMORANO MD Requesting Provider: Medicines: Monitored Anesthesia Care Complications: No immediate complications. Procedure: Pre-Anesthesia Assessment: - The heart rate, respiratory rate, oxygen saturations, blood pressure, adequacy of pulmonary ventilation, and response to care were monitored throughout the procedure. The Colonoscope was introduced through the anus and advanced to 10 cm into the ileum. The colonoscopy was somewhat difficult due to unsatisfactory bowel prep. Successful completion of the procedure was aided by lavage. The patient tolerated the procedure well. The quality of the bowel preparation was adequate. Findings: The perianal and digital rectal examinations were normal. A 5 mm polyp was found in the ascending colon. The polyp was sessile. The polyp was removed with a cold snare. Resection and retrieval were complete. Internal hemorrhoids were found during retroflexion. The hemorrhoids were small. The exam was otherwise without abnormality on direct and retroflexion views. Impression: - Suboptimal colon prep required extensive lavage. Post lavage prep was adequate. - One 5 mm polyp in the ascending colon, removed with a cold snare. Resected and retrieved. - Internal hemorrhoids. - The examination was otherwise normal on direct and retroflexion views. - (Irritable Bowel Syndrome/IBS suspected.) Recommendation: - Continue present medications. - Return to referring physician as previously scheduled. - Repeat colonoscopy in 5 years for surveillance. - (Rec alternate colon preparation for next colonoscopy) Musa Patiño MD Musa PATIÑO MD 11/24/2019 8:40:09 AM Electronically signed by Musa PATIÑO MD Number of Addenda: 0 Note Initiated On: 11/24/2019 8:08 AM Estimated Blood Loss: Estimated blood loss: none.
[2019-11-24 09:00] VITALS: BP 102/58
== END 2019-11-24 09:14 | disposition home or self-care (01) ==
LOC: M OPP 07:03
PROVIDERS: ATTEND Internal Medicine Gastroenterology
DX: D12.2 Benign neoplasm of ascending colon (principal); K64.8 Other hemorrhoids; R10.84 Generalized abdominal pain; K58.1 Irritable bowel syndrome with constipation; R14.2 Eructation; F17.210 Nicotine dependence, cigarettes, uncomplicated
CPT/HCPCS: 43239; 45385; 88305; J3010

== ENCOUNTER 2020-05-16 02:00 | Emergency (ER) | payer OTHER ==
[~2020-05-16] VITALS: Ht 162.6 cm; Wt 60.5 kg
[~2020-05-16 02:00] MED LIST changes: -FLUO10CA15 PO; +FLUO10CA16 PO; -NS 1,000 ML IV ONE; -PARO15TA PO; +PARO30TA4 PO
[2020-05-16] MEDS ORDERED: LEVO75TA4 PO (02:10)
[2020-05-16] MEDS ORDERED: PARO20TA3 PO (02:10)
[2020-05-16] MEDS ORDERED: ACETAMINOPHEN 325 MG TAB PO ONE (03:30)
[2020-05-16] MEDS ORDERED: IBUPROFEN 600MG TAB PO ONE (03:30)
[2020-05-16] MEDS ORDERED: diphenhydrAMINE 25MG CAP PO ONE (03:30)
[2020-05-16] MEDS ORDERED: METOCLOPRAMIDE 10 MG TAB PO ONE (03:30)
[2020-05-16 04:40] VITALS: BP 122/80
== END 2020-05-16 04:50 | disposition home or self-care (01) ==
LOC: M ED 02:00
DX: G43.909 Migraine, unspecified, not intractable, without status migrainosus (principal); F17.200 Nicotine dependence, unspecified, uncomplicated; Z88.1 Allergy status to other antibiotic agents; Z88.6 Allergy status to analgesic agent; Z79.899 Other long term (current) drug therapy

== ENCOUNTER 2020-05-20 17:30 | Emergency (ER) | payer OTHER ==
[~2020-05-20] VITALS: Ht 162.6 cm; Wt 60.0 kg
[~2020-05-20 17:30] MED LIST changes: +LEVO75TA4 PO; +PARO20TA3 PO
[2020-05-20] MEDS ORDERED: tylenol (17:35)
[2020-05-20] MEDS ORDERED: diphenhydrAMINE 50MG/ML VIAL (J1200) IV ONE (18:45)
[2020-05-20] MEDS ORDERED: KETOROLAC 30 MG/ML 1ML VIAL IV ONE (18:45)
[2020-05-20] MEDS ORDERED: NS 1,000 ML IV ONE (18:45)
[2020-05-20] MEDS ORDERED: ONDANSETRON 4MG/2ML VIAL IV ONE (18:45)
[2020-05-20 19:09] LABS: BASO # 0.1 10^3/uL (0.0-0.2); BASO % 1.1 % (0.0-1.0); EOS # 0.3 10^3/uL (0.0-0.5); EOS % 4.4 % (0.0-3.0); HEMATOCRIT 42.5 % (36.0-47.0); HEMOGLOBIN 13.6 g/dl (12.0-15.5); LYMPH # 2.3 10^3/uL (1.5-5.0); LYMPH % 33.1 % (24.0-44.0); MEAN CORPUSCULAR HEMOGLOBIN 32.4 pg (27.0-33.0); MEAN CORPUSCULAR VOLUME 101.2 fl (80.0-96.0); MONO # 0.6 10^3/uL (0.0-0.8); MONO % 7.9 % (0.0-5.0); NEUTROPHILS # 3.7 10^3/uL (1.5-8.5); NEUTROPHILS % 53.4 % (36.0-66.0); PLATELET COUNT, AUTOMATED 204 10^3/uL (150-450)
[2020-05-20 19:33] LABS: BLOOD UREA NITROGEN 9 MG/DL (7-18); CALCIUM LEVEL 8.6 MG/DL (8.5-10.1); CARBON DIOXIDE LEVEL 26 MEQ/L (21-32); CHLORIDE LEVEL 114 MEQ/L (98-107); CREATININE FOR GFR 0.71 MG/DL (0.55-1.30); GLOMERULAR FILTRATION RATE > 60.0 (>58); GLUCOSE, FASTING 86 MG/DL (70-100); MAGNESIUM LEVEL 2.1 MG/DL (1.8-2.4); POTASSIUM SERUM 3.7 MEQ/L (3.5-5.1); SODIUM LEVEL 143 MEQ/L (136-145)
[2020-05-20 21:54] VITALS: BP 103/63
== END 2020-05-20 21:55 | disposition home or self-care (01) ==
LOC: M ED 17:30
DX: G43.909 Migraine, unspecified, not intractable, without status migrainosus (principal); K21.9 Gastro-esophageal reflux disease without esophagitis; K58.9 Irritable bowel syndrome, unspecified; E03.9 Hypothyroidism, unspecified; F41.9 Anxiety disorder, unspecified; F33.9 Major depressive disorder, recurrent, unspecified; F17.200 Nicotine dependence, unspecified, uncomplicated; Z88.1 Allergy status to other antibiotic agents; Z88.6 Allergy status to analgesic agent; Z79.899 Other long term (current) drug therapy
CPT/HCPCS: 80047; 80048; 83735; 84702; 85025; 96361; 96374; 96375; 99284; J1200; J1885; J2405

== ENCOUNTER 2020-05-26 22:27 | Emergency (ER) | payer OTHER ==
[~2020-05-26] VITALS: Ht 162.6 cm; Wt 61.0 kg
[~2020-05-26 22:27] MED LIST changes: +tylenol
[2020-05-26] MEDS ORDERED: NS 1,000 ML IV ONE (23:15)
[2020-05-26] MEDS ORDERED: MORPHINE 4 MG/ML 1ML VIAL/SYRINGE (J2270) IV ONE (23:15)
[2020-05-26] MEDS ORDERED: ONDANSETRON 4MG/2ML VIAL IV ONE (23:15)
[2020-05-26 23:30] LABS: BASO # 0.1 10^3/uL (0.0-0.2); BASO % 0.7 % (0.0-1.0); EOS # 0.3 10^3/uL (0.0-0.5); EOS % 3.2 % (0.0-3.0); HEMATOCRIT 40.3 % (36.0-47.0); HEMOGLOBIN 12.8 g/dl (12.0-15.5); LYMPH # 3.1 10^3/uL (1.5-5.0); LYMPH % 28.8 % (24.0-44.0); MEAN CORPUSCULAR HEMOGLOBIN 32.4 pg (27.0-33.0); MEAN CORPUSCULAR HGB CONC 31.8 g/dl (32.0-36.5); MONO # 0.6 10^3/uL (0.0-0.8); MONO % 5.4 % (0.0-5.0); NEUTROPHILS # 6.6 10^3/uL (1.5-8.5); NEUTROPHILS % 61.6 % (36.0-66.0); PLATELET COUNT, AUTOMATED 180 10^3/uL (150-450); RED BLOOD COUNT 3.95 10^6/uL (4.00-5.40); WHITE BLOOD COUNT 10.7 10^3/uL (4.0-10.0)
[2020-05-26] MEDS ORDERED: KETOROLAC 30 MG/ML 1ML VIAL IV ONE (23:45)
[2020-05-27 00:04] LABS: ALBUMIN 3.6 GM/DL (3.2-5.2); ALT/SGPT 19 U/L (12-78); BILIRUBIN,DIRECT < 0.1 MG/DL (0.0-0.2); BILIRUBIN,TOTAL 0.2 MG/DL (0.2-1.0); LIPASE 158 U/L (73-393); TOTAL PROTEIN 6.6 GM/DL (6.4-8.2)
[2020-05-27] MEDS ORDERED: ISOVUE-370 76% 100ML VIAL As Ordered ONE (00:13)
--- NOTE | 2020-05-27 00:46 | REPVR ---
PROCEDURE INFORMATION: Exam: CT Abdomen And Pelvis With Contrast Exam date and time: 05/26/2020 12:26 AM Age: 40 years old Clinical indication: Abdominal pain; Additional info: R sided abd pain, sudden onset TECHNIQUE: Imaging protocol: Computed tomography of the abdomen and pelvis with intravenous contrast. Radiation optimization: All CT scans at this facility use at least one of these dose optimization techniques: automated exposure control; mA and/or kV adjustment per patient size (includes targeted exams where dose is matched to clinical indication); or iterative reconstruction. Contrast material: ISO 370; Contrast volume: 100 ml; Contrast route: INTRAVENOUS (IV); COMPARISON: CT ABD PELVIS W/O CONTRAST 11/22/2018 7:26 PM FINDINGS: Lungs: No suspicious mass or airspace process in the visualized lung bases. Liver: Liver appears normal with no focal abnormality. Gallbladder and bile ducts: Gallbladder is present and shows no evidence of gallstone. Pancreas: Pancreas appears normal. No focal mass or peripancreatic inflammation. Spleen: Spleen appears homogeneous without focal mass. Adrenal glands: Adrenal glands are normal in appearance. Kidneys and ureters: Left kidney demonstrates normal enhancement. Right kidney demonstrates functional delay relative to the left, with perinephric stranding and moderate hydroureteronephrosis. Within the distal right ureter just proximal to the UVJ, there is a 3 x 2 mm right ureter stone. Stomach and bowel: No evidence of small bowel obstruction. Terminal ileum has normal appearance. No evidence of acute diverticulitis. Appendix: Normal caliber appendix is identified, with no adjacent inflammation. Intraperitoneal space: No pneumoperitoneum. Trace free fluid is present in the pelvis. No abnormal pelvic mass. Vasculature: No aortic aneurysm. Main portal and splenic veins enhance normally. Lymph nodes: No enlarged lymph nodes. Urinary bladder: Urinary bladder appears normal. Bones/joints: Bony structures show no acute fracture or destructive process. IMPRESSION: Moderate right hydroureteronephrosis and functional right renal delay secondary to a 3 x 2 mm right UVJ stone. Electronically signed by: Casimiro Doyle On 05/27/2020 00:46:17 AM
[2020-05-27] MEDS ORDERED: TAMSULOSIN 0.4 MG CAP PO ONE (01:15)
[2020-05-27] MEDS ORDERED: FLOM0.4C39 PO (01:26)
[2020-05-27] MEDS ORDERED: NORCO 5/325MG TABLET (BULK FOR ED) PO ONE (01:30)
[2020-05-27 01:33] VITALS: BP 121/82
[2020-05-28] MEDS ORDERED: ESOM40CA35 PO (13:40)
[2020-05-28] MEDS ORDERED: TOPI200T7 PO (13:40)
[2020-05-28] MEDS ORDERED: ZONI50CA11 PO (13:40)
[2020-05-28] MEDS ORDERED: MAXA10TA15 PO (16:18)
[2020-05-28] MEDS ORDERED: SUMA4INJ4 SC (16:18)
[2020-05-28] MEDS ORDERED: ACET-683 PO (16:18)
[2020-05-28] MEDS ORDERED: FLOM0.4C39 PO (16:18)
[2020-05-28] MEDS ORDERED: MIDAZOLAM INJ 2MG/2ML VIAL (J2250 PER 1MG) As Ordered ONE (17:34)
[2020-05-28] MEDS ORDERED: fentaNYL 100 MCG/2 ML INJECTION (J3010) As Ordered ONE (17:35)
[2020-05-28] MEDS ORDERED: propofoL 200 MG/20 ML VIAL As Ordered ONE (17:37)
[2020-05-28] MEDS ORDERED: LIDOCAINE 2% 100MG/5ML SDV (FOR ANES.) As Ordered ONE (17:37)
[2020-05-28] MEDS ORDERED: KETOROLAC 60MG 2ML VIAL As Ordered ONE (17:42)
[2020-05-28] MEDS ORDERED: ONDANSETRON 4MG/2ML VIAL As Ordered ONE (17:42)
[2020-05-28] MEDS ORDERED: dexameTHASONE 4 MG/ML 1ML VIAL (J1100 PER 1MG) As Ordered ONE (18:02)
== END 2020-05-27 01:42 | disposition home or self-care (01) ==
LOC: M ED 22:27
DX: N13.2 Hydronephrosis with renal and ureteral calculous obstruction (principal); G40.909 Epilepsy, unspecified, not intractable, without status epilepticus; Z88.1 Allergy status to other antibiotic agents; Z88.6 Allergy status to analgesic agent; Z79.899 Other long term (current) drug therapy
CPT/HCPCS: 74177; 80047; 80076; 81001; 83690; 85025; 96361; 96374; 96375; 99284; J1885; J2270; J2405; Q9967

== ENCOUNTER 2020-05-28 13:24 | Observation (INO) | payer OTHER ==
[~2020-05-28] VITALS: Ht 162.6 cm; Wt 60.4 kg
[~2020-05-28 13:24] MED LIST changes: +FLOM0.4C39 PO
[2020-05-28] MEDS ORDERED: TOPI200T7 PO (13:40)
[2020-05-28] MEDS ORDERED: ESOM40CA35 PO (13:40)
[2020-05-28] MEDS ORDERED: ZONI50CA11 PO (13:40)
[2020-05-28] MEDS ORDERED: NS 1,000 ML IV ONE (14:00)
[2020-05-28 14:13] LABS: BASO # 0.1 10^3/uL (0.0-0.2); BASO % 0.6 % (0.0-1.0); EOS # 0.2 10^3/uL (0.0-0.5); EOS % 1.9 % (0.0-3.0); HEMOGLOBIN 12.5 g/dl (12.0-15.5); LYMPH # 1.6 10^3/uL (1.5-5.0); LYMPH % 16.3 % (24.0-44.0); MEAN CORPUSCULAR HEMOGLOBIN 32.7 pg (27.0-33.0); MEAN CORPUSCULAR HGB CONC 32.1 g/dl (32.0-36.5); MEAN CORPUSCULAR VOLUME 102.1 fl (80.0-96.0); MONO % 10.2 % (0.0-5.0); NEUTROPHILS # 7.1 10^3/uL (1.5-8.5); NEUTROPHILS % 70.8 % (36.0-66.0); PLATELET COUNT, AUTOMATED 149 10^3/uL (150-450); RED BLOOD COUNT 3.82 10^6/uL (4.00-5.40)
[2020-05-28] MEDS ORDERED: MORPHINE 4 MG/ML 1ML VIAL/SYRINGE (J2270) IV ONE (14:15)
--- NOTE | 2020-05-28 14:29 | REP ---
INDICATION: kidney stone with increased R flank pain COMPARISON: CT 05/27/2020. TECHNIQUE: CT Scan of the abdomen and pelvis was performed without intravenous contrast. Sagittal and coronal reconstruction images performed. FINDINGS: Lung bases: Unremarkable. Liver: Grossly unremarkable. Gallbladder: Unremarkable. Spleen: Grossly unremarkable.. Adrenals: Normal. Pancreas: Grossly unremarkable.. Kidneys: Once again there is moderate right hydroureteronephrosis caused by a 4 mm stone at the right ureterovesical junction. The degree of hydronephrosis is essentially unchanged. Persistent right renal nephrogram is noted. Perinephric edema has mildly increased, as well as periureteral edema. There is no left hydroureteronephrosis. Small and large bowel: Grossly unremarkable.. Free fluid: None. Abdominal aorta: No aneurysm. Adenopathy: None. Appendix: Not inflamed. Osseous structures: Unremarkable. Pelvis: No mass. Urinary bladder is empty. There has been a prior hysterectomy. IMPRESSION: No change in moderate right hydroureteronephrosis, caused by a 4 mm stone at the right ureterovesical junction. Mild increase in perirenal and periureteral edema. <Electronically signed by Terrence Diaz > 05/28/20 [id number]
[2020-05-28 15:09] LABS: ALBUMIN 3.8 GM/DL (3.2-5.2); ALT/SGPT 30 U/L (12-78); BILIRUBIN,DIRECT < 0.1 MG/DL (0.0-0.2); BILIRUBIN,TOTAL 0.4 MG/DL (0.2-1.0); LIPASE 125 U/L (73-393); TOTAL PROTEIN 6.9 GM/DL (6.4-8.2)
[2020-05-28] MEDS ORDERED: HYDROMORPHONE HCL 0.5 MG/ 0.5 ML SYRINGE (J1170 PER 1) IV ONE (15:30)
[2020-05-28] MEDS ORDERED: FLOM0.4C39 PO (16:18)
[2020-05-28] MEDS ORDERED: ACET-683 PO (16:18)
[2020-05-28] MEDS ORDERED: MAXA10TA15 PO (16:18)
[2020-05-28] MEDS ORDERED: SUMA4INJ4 SC (16:18)
[2020-05-28] MEDS ORDERED: KETOROLAC 30 MG/ML 1ML VIAL IV ONE (16:30)
[2020-05-28] MEDS ORDERED: ACETAMINOPHEN TAB 650MG DOSE (2X325MG) PO PRN (16:30)
[2020-05-28] MEDS ORDERED: ONDANSETRON 4MG/2ML VIAL IV ONE (16:45)
[2020-05-28] MEDS: NS 1,000 ML IV SCH (16:49)
[2020-05-28] MEDS ORDERED: ACETAMINOPHEN *IV* 1,000 MG in IV 1 EA IV ONE (17:00)
[2020-05-28] MEDS ORDERED: MORPHINE 2 MG/ML 1ML VIAL (J2270) IV PRN (17:00)
[2020-05-28] MEDS ORDERED: CONRAY-60 60% 50ML VIAL (Q9961) As Ordered ONE (17:14)
--- NOTE | 2020-05-28 17:27 | HPEPDOC ---
[facility] Medical History & Physical Date of Admission May 28, 2020 Date of Service: May 28, 2020 Attending Physician: Kizzy Good MD History and Physical CHIEF COMPLAINT: right side pain HISTORY OF PRESENT ILLNESS: Patient is a 40-year-old female with past medical history of hypothyroidism who presented to [facility] emergency room with increased right-sided flank pain over the past 2 days. The patient was seen in the emergency room 2 days ago diagnosed with a right kidney stone and discharged home to follow up with urology and PCP. Today she experienced 7/10 pain in the same spot on the right flank, radiating to the right groin, sharp in character, constant. She had associated nausea with vomiting, chills, abdominal pain, headache and a decreased appetite at home. She denies diarrhea, recent illnesses, fevers or history of kidney stones. In ER,VS were stable. She was given dilaudid and morphine for pain, which helped minimally. CT abd/pelvis:No change in moderate right hydroureteronephrosis, caused by a 4 mm stone at the right ureterovesical junction. Mild increase in perirenal and periureteral edema. Cr was elevated at 1.5. UA neg for UTI. Dr. Rosado, urology, consulted and to take to the OR tonight. Patient admitted for right hydroureteronephrosis 2/2 to kidney stone. REVIEW OF SYSTEMS: CONSTITUTIONAL: Denies unexplained weight gain or weight loss, fever, night sweats EYES: Denies eye drainage, eye pain, visual changes, dry/irritated eye EARS, NOSE, MOUTH, THROAT: Denies difficulty hearing, ringing in ears, mouth sores, loose teeth, sore throat, facial numbness or pain NECK: Denies swollen glands CARDIOVASCULAR: Denies irregular heartbeat, racing heart, chest pains, swelling of feet or legs, pain in legs with walking RESPIRATORY: Denies night sweats, wheezing, sputum production, oxygen at home, coughing up blood, cough lasting > 1 month GASTROINTESTINAL: Denies constipation, bloody stool, diarrhea, heartburn GENITOURINARY: Denies painful urination, bloody urine, frequent urination, urgency, leaking urine, impotence MUSCULOSKELETAL: Denies joint pain, muscle pain, leg swelling INTEGUMENTARY: Denies rash, itching, new skin lesion, change in existing skin lesion, hair loss or increase, breast changes. NEUROLOGICAL: Denies difficulty walking, numbness or tingling PSYCHIATRIC: Denies depression, anxiety, recurrent bad thoughts, mood swings, hallucinations PAST MEDICAL HISTORY: Hypothyroidism PAST SURGICAL HISTORY: Partial hysterectomy FAMILY HISTORY: Father:No medical history. Alive Mother: No medical history. Alive SOCIAL HISTORY: Smoker, 1/2 PPD for >10 years. Does not wish to have nicotine patch. Denies alcohol and drug use. Lives with family. PCP- [facility]. ALLERGIES: Please see below. HOME MEDICATIONS: Please see below. PHYSICAL EXAMINATION: VS: Please see below CONSTITUTIONAL: Appears uncomfortable in pain , AAO x 3 EYES: PERRLA, EOM intact HENT, MOUTH: Normocephalic, atraumatic, moist mucous membranes, NECK: SUPPLE, no JVD, no lymphadenopathy, no carotid bruit CV: Regular rate and rhythm, S1S2 normal, no murmurs/rubs/gallops RESPIRATORY: Clear to auscultation bilaterally, no rales/rhonchi/wheezes GI: Mild abd discomfort diffusely and in the right flank/groin mostly, BS positive in 4 quadrants, soft, nontender, nondistended, no rebound or guarding, no organomegaly : Deferred MUSCULOSKELETAL: Normal ROM. No cyanosis, clubbing, swelling, joint deformity, extremity edema INTEGUMENTARY: Intact, no rashes, no lesions, no erythema NEUROLOGIC: Cranial Nerves II-XII are intact, no focal deficits PSYCHIATRIC: Mood and affect are normal LABORATORY DATA: Please see below IMAGING: CT abd/pelvis: No change in moderate right hydroureteronephrosis, caused by a 4 mm stone at the right ureterovesical junction. Mild increase in perirenal and periureteral edema. ASSESSMENT: 40 y/o F with PMH hypothyroidism admitted for right hydroureteronephrosis 2/2 to ureterovesical kidney stone. PLAN: 1. Right hydroureteronephrosis 2/2 to ureterovesical kidney stone -CT above -WBC wnl, UA neg, Cr elevated at 1.5 -? allergy to morphine, received dilaudid and morphine in ER -Case discussed with Dr. Rosado, OR today -Tylenol PRN, IV pain meds 2. Acute kidney injury likely 2/2 obstructive kidney stone/hydronephrosis vs. ibuprofen use at home -Cr 1.5, baseline Cr 0.7 -Avoid nephrotoxic meds -IVFs at 100 cc/hr -Daily labs 3. Hypothyroidism -C/w levothyroxine home med 4. Migraine headaches -C/w home medications. 5. DVT px. -heparin SC DISPOSITION: Admitted under observation status. Plan is discharge home when medically improved. Urology consulted. Vital Signs Vital Signs Date Time Temp Pulse Resp B/P (MAP) Pulse Ox O2 Delivery O2 Flow Rate FiO2 05/28/20 15:41 18 Room Air 05/28/20 13:41 Automatic Cuff (NIBP) Left Arm 05/28/20 13:25 98.5 80 100 Laboratory Data Labs 24H Laboratory Tests 2 05/28/20 13:54: Immature Granulocyte % (Auto) 0.2, Neutrophils (%) (Auto) 70.8H, Lymphocytes (%) (Auto) 16.3L, Monocytes (%) (Auto) 10.2H, Eosinophils (%) (Auto) 1.9, Basophils (%) (Auto) 0.6, Neutrophils # (Auto) 7.1, Lymphocytes # (Auto) 1.6, Monocytes # (Auto) 1.0H, Eosinophils # (Auto) 0.2, Basophils # (Auto) 0.1, Nucleated Red Blood Cells % (auto) 0.0, Urine Color YELLOW, Urine Appearance CLEAR, Urine pH 6.0, Urine Specific [place] 1.019, Urine Protein NEGATIVE, Urine Glucose (UA) NEGATIVE, Urine Ketones TRACEH, Urine Blood 2+H, Urine Nitrite NEGATIVE, Urine Bilirubin NEGATIVE, Urine Urobilinogen 0.2, Urine Leukocyte Esterase NEGATIVE, Urine WBC (Auto) 1, Urine RBC (Auto) 4H, Urine Hyaline Casts (Auto) 0, Urine Bacteria (Auto) NEGATIVE, Urine Squamous Epithelial Cells 2, Urine Sperm (Auto) , Total Bilirubin 0.4#, Direct Bilirubin < 0.1, Aspartate Amino Transf (AST/SGOT) 32, Alanine Aminotransferase (ALT/SGPT) 30, Alkaline Phosphatase 59, Total Protein 6.9, Albumin 3.8, Albumin/Globulin Ratio 1.2, Lipase 125 05/28/20 14:01: POC Glucose (Misc Panel) 83, POC Sodium (Misc Panel) 139, POC Potassium (Misc Pa kris) 3.4L, POC Chloride (Misc Panel) 103, POC Total CO2 (Misc Panel) 24.0, POC Blood Urea Nitrogen (Misc Panel 12, POC Ionized Calcium (Misc Panel) 4.7, POC Creatinine (Misc Panel) 1.5H, POC Hematocrit (Misc Panel) 40.0 05/28/20 16:07: Coronavirus (COVID-19)(PCR) NEGATIVE CBC/BMP Laboratory Tests 05/28/20 13:54 Home Medications Scheduled Levothyroxine Sodium (Levothyroxine Sodium) 75 Mcg Tablet, 75 MCG PO DAILY Paroxetine HCl (Paroxetine HCl) 20 Mg Tablet, 20 MG PO DAILY Tamsulosin HCl (Flomax) 0.4 Mg Capsule, 0.4 MG PO DAILY FOR 3 DAYS, STARTED 05/27 Zonisamide (Zonisamide) 50 Mg Capsule, 50 MG PO BID Scheduled PRN Acetaminophen (Acetaminophen) 500 Mg Tablet, 500 MG PO Q6H PRN for PAIN Ibuprofen (Ibuprofen) 200 Mg Tablet, 400 MG PO Q8H PRN for PAIN Rizatriptan Benzoate ([employer]) 10 Mg Tab.rapdis, 10 MG PO DAILY PRN for MIGRAINE Sumatriptan Succinate (Sumatriptan Succinate) 4 Mg/0.5 Ml Cartridge, 4 MG SC for MIGRAINE Allergies Coded Allergies: ciprofloxacin (Verified Adverse Reaction, Mild, itching, 11/23/19) hydrocodone (Verified Adverse Reaction, Mild, ITCHING, 05/28/20) hydromorphone (Verified Adverse Reaction, Mild, ITCHING, 05/28/20) morphine (Verified Adverse Reaction, Mild, ITCHING, 05/28/20) A-FIB/CHADSVASC A-FIB History Current/History of A-Fib/PAF?: No Current PO Anticoag Therapy: No Age/Risk Factor Scoring CHADSVASC: CHADSVASC Response (Comments) Value Age Risk Factor Age < 65 years old 0 Gender Risk Factor Female 1 Hx of CHF No 0 Hx of HTN No 0 Hx of Stroke/TIA/or VTE No 0 Hx of Diabetes No 0 Hx of Vascular Disease No 0 Total 1 Treatment Treatment ordered: Other Other anticoagulant ordered: heparin Kizzy Good MD May 28, 2020 17:27
[2020-05-28] MEDS ORDERED: RIZATRIPTAN MLT 10 MG TAB PO PRN (17:30)
[2020-05-28] MEDS ORDERED: ONDANSETRON 4MG/2ML VIAL IV PRN ×2 (17:30→18:45)
--- NOTE | 2020-05-28 17:35 | SMCUROLCON ---
Urology Consultation General Date of Consultation 05/28/20 Reason For Consultation This patient is seen for Abdominal Pain. History of Present Illness This is a 40 y/o F w/ no significant PMH presenting to the ER w/ worsening R flank and abdominal pain. She was seen in the ER 2 days ago for similar symptom s and was diagnosed w/ a 4mm R UVJ stone. She was discharged and given flomax and pain medications. She notes that the pain has progressive worsened. A repeat CT A/P today demonstrates worsened R hydroureteronephrosis w/ residual contrast from the CT done 2 days ago filling the R collecting system and the 4mm stone still present at the UVJ. Her UA appears negative for infection. Her Cr is 1.5 from a baseline of about 0.7. She has had nausea. She denies dysuria. She denies fevers but notes chills. Past Medical History Medical History hypothyroidism, migraines Surgical Hstory hysterectomy Allergies Allergies: Coded Allergies: ciprofloxacin (Verified Adverse Reaction, Mild, itching, 11/23/19) hydrocodone (Verified Adverse Reaction, Mild, ITCHING, 05/28/20) hydromorphone (Verified Adverse Reaction, Mild, ITCHING, 05/28/20) morphine (Verified Adverse Reaction, Mild, ITCHING, 05/28/20) Review of Systems Constitutional: Reports: Chills; Denies: Fever, Sweats, Weakness, Malaise, Other Skin: Denies: Rash, Lesions, Jaundice, Bruising, Itching, Dry, Breakdown, Nail Changes, Other Pulmonary: Denies: Dyspnea, Cough, Pleuritic Chest Pain, Other Symptoms Cardiovascular: Denies Chest Pain, Denies Palpitations, Denies Orthopnea, Denies Paroxysmal Noc. Dyspnea, Denies Edema, Denies Lt Headedness, Denies Other Symptoms Gastrointestinal: Reports: Nausea, Abdominal Pain (RLQ) Genitourinary: Denies: Dysuria, Frequency, Incontinence, Hematuria Musculoskeletal: Reports: Back Pain (R flank pain) Psych: Reports: Mood Normal Physical Examination General Exam: Alert, Cooperative Chest Exam: Clear to auscultation Heart Exam: Rate Normal Abdomen Exam: Soft, Tenderness (RLQ) Skin Exam: Nl turgor and temperature Neuro Exam: Normal Speech Psych Exam: Mood NL Vital Signs/I&O Vital Signs Date Time Temp Pulse Resp B/P (MAP) Pulse Ox O2 Delivery O2 Flow Rate FiO2 05/28/20 15:41 18 Room Air 05/28/20 13:41 Automatic Cuff (NIBP) Left Arm 05/28/20 13:25 98.5 80 100 Laboratory Data 24H Labs Laboratory Tests 2 05/28/20 13:54: Immature Granulocyte % (Auto) 0.2, Neutrophils (%) (Auto) 70.8H, Lymphocytes (%) (Auto) 16.3L, Monocytes (%) (Auto) 10.2H, Eosinophils (%) (Auto) 1.9, Basophils (%) (Auto) 0.6, Neutrophils # (Auto) 7.1, Lymphocytes # (Auto) 1.6, Monocytes # (Auto) 1.0H, Eosinophils # (Auto) 0.2, Basophils # (Auto) 0.1, Nucleated Red Blood Cells % (auto) 0.0, Urine Color YELLOW, Urine Appearance CLEAR, Urine pH 6.0, Urine Specific [place] 1.019, Urine Protein NEGATIVE, Urine Glucose (UA) N EGATIVE, Urine Ketones TRACEH, Urine Blood 2+H, Urine Nitrite NEGATIVE, Urine Bilirubin NEGATIVE, Urine Urobilinogen 0.2, Urine Leukocyte Esterase NEGATIVE, Urine WBC (Auto) 1, Urine RBC (Auto) 4H, Urine Hyaline Casts (Auto) 0, Urine Bacteria (Auto) NEGATIVE, Urine Squamous Epithelial Cells 2, Urine Sperm (Auto) , Total Bilirubin 0.4#, Direct Bilirubin < 0.1, Aspartate Amino Transf (AST/SGOT) 32, Alanine Aminotransferase (ALT/SGPT) 30, Alkaline Phosphatase 59, Total Protein 6.9, Albumin 3.8, Albumin/Globulin Ratio 1.2, Lipase 125 05/28/20 14:01: POC Glucose (Misc Panel) 83, POC Sodium (Misc Panel) 139, POC Potassium (Misc Panel) 3.4L, POC Chloride (Misc Panel) 103, POC Total CO2 (Misc Panel) 24.0, POC Blood Urea Nitrogen (Misc Panel 12, POC Ionized Calcium (Misc Panel) 4.7, POC Creatinine (Misc Panel) 1.5H, POC Hematocrit (Misc Panel) 40.0 05/28/20 16:07: CBC/BMP Laboratory Tests 05/28/20 13:54 Assessment This is a 40 y/o F w/ intractable pain and JULY secondary to an obstructing 4mm R UVJ stone. I recommended that we take her to the OR this evening for cystoscopy, R ureteroscopy w/ laser lithotripsy, and R ureteral stent placement. After a discussion of the risks and benefits of the procedure, informed consent was signed. Plan - to OR this evening for surgery - will be admitted to the hospitalist service postop for JULY - NPO - 2g [facility] SOY DANG MD May 28, 2020 16:16
[2020-05-28] MEDS ORDERED: ceFAZolin 2 GM/D5W 50 ML IV BAG (J0690 PER 500MG) As Ordered ONE (17:39)
[2020-05-28] MEDS ORDERED: ceFAZolin SOD 2 GM in IV 1 EA IV ONE (17:45)
--- NOTE | 2020-05-28 18:29 | REP ---
INDICATION: FLUORO GUIDANCE. COMPARISON: CT 05/28/2020. TECHNIQUE: Single C-arm view abdomen and pelvis performed. FINDINGS: Right ureteral stent is placed. The proximal end is coiled in the partially opacified dilated right renal pelvis. The distal end is seen in the urinary bladder. IMPRESSION: 16 seconds fluoroscopy time utilized. <Electronically signed by Terrence Diaz > 05/28/20 [id number]
[2020-05-28] MEDS ORDERED: PERCOCET 5MG/325MG TAB PO PRN (18:45)
[2020-05-28] MEDS ORDERED: METOCLOPRAMIDE INJ 10MG/2ML VIAL (J2765 PER 1) IV PRN (18:45)
[2020-05-28] MEDS ORDERED: LR 1,000 ML IV SCH (18:45)
[2020-05-28] MEDS ORDERED: fentaNYL 100 MCG/2 ML INJECTION (J3010) IV PRN (18:45)
[2020-05-28] MEDS ORDERED: ONDANSETRON 4MG/2ML VIAL As Ordered ONE (18:49)
[2020-05-28] MEDS ORDERED: PERCOCET 5MG/325MG TAB As Ordered ONE (18:50)
[2020-05-28] MEDS ORDERED: fentaNYL 100 MCG/2 ML INJECTION (J3010) As Ordered ONE (18:50)
[2020-05-28 19:45] VITALS: BP 120/78
[2020-05-28] MEDS: HEPARIN SOD (PORCINE) 5000UNITS/ML 1ML VIAL/SYRINGE SQ SCH (20:11)
[2020-05-28] MEDS: ZONISAMIDE 50 MG CAP (ZONEGRAN) PO SCH (20:11)
[2020-05-28 20:15] VITALS: BP 118/78
[2020-05-28 20:45] VITALS: BP 116/77
[2020-05-28 22:00] VITALS: BP 110/74
[2020-05-28 23:00] VITALS: BP 104/70
[2020-05-29] VITALS: BP 107/73
[2020-05-29 01:00] VITALS: BP 100/68
[2020-05-29] MEDS: NS 1,000 ML IV SCH (05:04)
[2020-05-29 05:58] LABS: HEMATOCRIT 35.8 % (36.0-47.0); HEMOGLOBIN 11.4 g/dl (12.0-15.5); MEAN CORPUSCULAR HEMOGLOBIN 32.7 pg (27.0-33.0); MEAN CORPUSCULAR HGB CONC 31.8 g/dl (32.0-36.5); MEAN CORPUSCULAR VOLUME 102.6 fl (80.0-96.0); PLATELET COUNT, AUTOMATED 134 10^3/uL (150-450); RED BLOOD COUNT 3.49 10^6/uL (4.00-5.40); WHITE BLOOD COUNT 7.3 10^3/uL (4.0-10.0)
[2020-05-29 06:00] VITALS: BP 103/62
[2020-05-29] MEDS ORDERED: LEVOTHYROXINE 75MCG TABLET (0.075MG) PO SCH (06:00)
[2020-05-29 06:17] LABS: ALBUMIN 2.9 GM/DL (3.2-5.2); ALT/SGPT 24 U/L (12-78); BILIRUBIN,TOTAL 0.6 MG/DL (0.2-1.0); BLOOD UREA NITROGEN 12 MG/DL (7-18); CALCIUM LEVEL 7.7 MG/DL (8.5-10.1); CARBON DIOXIDE LEVEL 24 MEQ/L (21-32); CHLORIDE LEVEL 112 MEQ/L (98-107); CREATININE FOR GFR 0.87 MG/DL (0.55-1.30); GLOMERULAR FILTRATION RATE > 60.0 (>58); GLUCOSE, FASTING 107 MG/DL (70-100); POTASSIUM SERUM 4.3 MEQ/L (3.5-5.1); SODIUM LEVEL 141 MEQ/L (136-145); TOTAL PROTEIN 5.6 GM/DL (6.4-8.2)
--- NOTE | 2020-05-29 07:32 | IPNPDOC ---
Subjective Review oF Systems Chief Complaint The patient is a 40-year-old female admitted with a reason for visit of Hydroureteronephrosis. Events since Last Encounter No acute events o/n. Patient has no R flank or abdominal pain at this time. Her n/v has resolved. No f/c/ns. Objective Physical Examination General Exam: Alert, Cooperative, No Acute Distress ABDOMEN EXAM: Soft; No: Tenderness Neuro Exam: Normal Speech Psych Exam: Mental status NL, Mood NL Vital Signs/I&O Vital Signs Date Time Temp Pulse Resp B/P (MAP) Pulse Ox O2 Delivery O2 Flow Rate FiO2 05/29/20 06:00 97.6 75 17 103/62 (76) 96 Room Air I&O- Last 24 Hours up to 6 AM 05/29/20 06:00 Intake Total 2460 ml Output Total 600 ml Balance 1860 ml Laboratory Data Labs 24H Laboratory Tests 2 05/28/20 13:54: Immature Granulocyte % (Auto) 0.2, Neutrophils (%) (Auto) 70.8H, Lymphocytes (%) (Auto) 16.3L, Monocytes (%) (Auto) 10.2H, Eosinophils (%) (Auto) 1.9, Basophils (%) (Auto) 0.6, Neutrophils # (Auto) 7.1, Lymphocytes # (Auto) 1.6, Monocytes # (Auto) 1.0H, Eosinophils # (Auto) 0.2, Basophils # (Auto) 0.1, Nucleated Red Blood Cells % (auto) 0.0, Urine Color YELLOW, Urine Appearance CLEAR, Urine pH 6.0, Urine Specific [place] 1.019, Urine Protein NEGATIVE, Urine Glucose (UA) NEGATIVE, Urine Ketones TRACEH, Urine Blood 2+H, Urine Nitrite NEGATIVE, Urine Bilirubin NEGATIVE, Urine Urobilinogen 0.2, Urine Leukocyte Esterase NEGATIVE, Urine WBC (Auto) 1, Urine RBC (Auto) 4H, Urine Hyaline Casts (Auto) 0, Urine Bacteria (Auto) NEGATIVE, Urine Squamous Epithelial Cells 2, Urine Sperm (Auto) , Total Bilirubin 0.4#, Direct Bilirubin < 0.1, Aspartate Amino Transf (AST/SGOT) 32, Alanine Aminotransferase (ALT/SGPT) 30, Alkaline Phosphatase 59, Total Protein 6.9, Albumin 3.8, Albumin/Globulin Ratio 1.2, Lipase 125 05/28/20 14:01: POC Glucose (Misc Panel) 83, POC Sodium (Misc Panel) 139, POC Potassium (Misc Panel) 3.4L, POC Chloride (Misc Panel) 103, POC Total CO2 (Misc Panel) 24.0, POC Blood Urea Nitrogen (Misc Panel 12, POC Ionized Calcium (Misc Panel) 4.7, POC Creatinine (Misc Panel) 1.5H, POC Hematocrit (Misc Panel) 40.0 05/28/20 16:07: Coronavirus (COVID-19)(PCR) NEGATIVE 05/28/20 18:24: 05/29/20 05:36: Nucleated Red Blood Cells % (auto) 0.0, Anion Gap 5L, Glomerular Filtration Rate > 60.0, Calcium Level 7.7L, Total Bilirubin 0.6, Aspartate Amino Transf (AST/SGOT) 16, Alanine Aminotransferase (ALT/SGPT) 24, Alkaline Phosphatase 52, Total Protein 5.6L, Albumin 2.9#L, Albumin/Globulin Ratio 1.1L CBC/BMP Laboratory Tests 05/28/20 13:54 05/29/20 05:36 Assessment/Plan Date Seen The patient was seen on 05/29/20. Patient Summary This is a 40 y/o F admitted w/ intractable pain and JULY 2/2 an obstructing 4mm R UVJ stone, POD1 s/p cysto, R ureteroscopy w/ basket extraction of stone, R ureteral stent placement. Cr down to 0.9 from 1.5 yesterday. Patient feels much better. Plan/VTE VTE Prophylaxis Ordered?: Yes VTE Exclusion Mechanical Proph: N/A:VTE Prophy Ordered Plan - ok for discharge home from urologic standpoint - will have my office arrange f/u in 1-2 wks to remove her stent in office SOY DELANEY MD May 29, 2020 07:32
[2020-05-29] MEDS: ZONISAMIDE 50 MG CAP (ZONEGRAN) PO SCH (08:40)
[2020-05-29] MEDS: HEPARIN SOD (PORCINE) 5000UNITS/ML 1ML VIAL/SYRINGE SQ SCH (08:40)
[2020-05-29] MEDS ORDERED: ENOXAPARIN 40MG/0.4ML SYRINGE (J1650 PER 10MG) SC SCH (09:00)
[2020-05-29] MEDS ORDERED: PARoxetine 20 MG TAB PO SCH (09:00)
--- NOTE | 2020-05-29 13:11 | RO ---
DATE OF OPERATION: 05/28/2020 PREOPERATIVE DIAGNOSIS: Obstructing right ureteral stone. POSTOPERATIVE DIAGNOSIS: Obstructing right ureteral stone. PROCEDURES: * Cystoscopy. * Right ureteroscopy with basket extraction of stone. * Right ureteral stent placement. SURGEON: Theron Rosado MD CONDUCTOR PULLMAN: None. ANESTHESIA: General. OPERATIVE INDICATIONS: This is a 40-year-old female who was seen in the emergency room two days ago for moderate to severe right flank and abdominal pain due to an obstructing right ureteral stone. The stone is 4 mm and at the ureterovesical junction. She was sent home with plan to allow her to pass the stone. Due to progressively worsening pain as well as nausea and vomiting, she came back to the emergency room. It was recommended she be brought to the operating room today to take care of her stone. DESCRIPTION OF PROCEDURE: The patient was brought to the operating room and general anesthesia was induced. Prophylactic antibiotics were infused. She was then placed in the dorsal lithotomy position, prepped and draped in the usual sterile fashion. A rigid cystoscope was inserted in the urethral meatus and advanced into the bladder. A guidewire was advanced up the right collecting system. Of note, the contrast that was administered to the patient for her CT scan two days ago was still seen filling the right collecting system. There was severe right hydroureteronephrosis with very tortuous ureter. At this point a short semi- rigid ureteroscope was advanced up the right collecting system. Just in the distal ureter the 4 mm stone was seen. A basket was utilized to remove the stone. I then advanced the ureteroscope up the more proximal ureter and no additional stones were seen. At this point the ureteroscope was removed. The previously placed wire was utilized to advance 6-Mal[place] x 22-32 cm JJ ureteral stent up the right collecting system. The wire was removed and there were adequate curls of the stent in the right renal pelvis and in the bladder. The bladder was then emptied of all fluids, and this marked the conclusion of the procedure. The patient was then taken out of the dorsal lithotomy position, awakened from anesthesia, and transported to the recovery room in stable condition. ESTIMATED BLOOD LOSS: 5 mL. COMPLICATIONS: None. SPECIMEN: Kidney stone. PLAN: The patient will be admitted to the Hospitalist Service postop for management of her acute kidney injury. Assuming her renal function improves tomorrow and her pain is controlled she can be discharged home tomorrow from urologic standpoint. We will have her follow up in urology clinic in approximately two weeks to take her stent out. CYNTHIA
--- NOTE | 2020-05-29 15:14 | DS.PDOC ---
Discharge Summary General Date of Admission May 28, 2020 at 13:25 Date of Discharge 05/29/20 Attending Physician: Kizzy Good MD Discharge Summary HISTORY OF PRESENT ILLNESS: Patient is a 40-year-old female with past medical history of hypothyroidism who presented to [facility] emergency room with increased right-sided flank pain over the past 2 days. The patient was seen in the emergency room 2 days ago diagnosed with a right kidney stone and discharged home to follow up with urology and PCP. Today she experienced 7/10 pain in the same spot on the right flank, radiating to the right groin, sharp in character, constant. She had associated nausea with vomiting, chills, abdominal pain, headache and a decreased appetite at home. She denies diarrhea, recent illnesses, fevers or history of kidney stones. In ER,VS were stable. She was given dilaudid and morphine for pain, which helped minimally. CT abd/pelvis:No change in moderate right hydroureteronephrosis, caused by a 4 mm stone at the right ureterovesical junction. Mild increase in perirenal and periureteral edema. Cr was elevated at 1.5. UA neg for UTI. Dr. Rosado, urology, consulted and to take to the OR tonight. Patient admitted for right hydroureteronephrosis 2/2 to kidney stone. HOSPITAL COURSE: Patient went for cysto, R ureteroscopy w/ basket extraction of stone, R ureteral stent placement on 05/28/20. Cr down to 0.9 from 1.5 yesterday. Patient feels much better with no pain. She does have some hematuria, which is normal after this procedure. Urology assessed today at bedside and recommends d/c with f/u in o/p clinic with them in 2 weeks to remove right ureteral stent. it is recommended that patient abstain from use of NSAIDs with recently improved JULY. Tylenol PRN for pain. She denied chest pain, n/v/d/ abdominal pain, fevers, chills or shortness of breath at time of discharge. PAST MEDICAL HISTORY: Hypothyroidism PAST SURGICAL HISTORY: Partial hysterectomy FAMILY HISTORY: Father:No medical history. Alive Mother: No medical history. Alive SOCIAL HISTORY: Smoker, 1/2 PPD for >10 years. Does not wish to have nicotine patch. Denies alcohol and drug use. Lives with family. PCP- [facility]. ALLERGIES: Please see below. HOME MEDICATIONS: Please see below. PHYSICAL EXAMINATION: VS: Please see below CONSTITUTIONAL: NAD, resting in bed , AAO x 3 EYES: PERRLA, EOM intact HENT, MOUTH: Normocephalic, atraumatic, moist mucous membranes, NECK: SUPPLE, no JVD, no lymphadenopathy, no carotid bruit CV: Regular rate and rhythm, S1S2 normal, no murmurs/rubs/gallops RESPIRATORY: Clear to auscultation bilaterally, no rales/rhonchi/wheezes GI: Mild abd discomfort in the right flank- improved from 05/28/20, BS positive in 4 quadrants, soft, nontender, nondistended, no rebound or guarding, no organomegaly : Deferred MUSCULOSKELETAL: Normal ROM. No cyanosis, clubbing, swelling, joint deformity, extremity edema INTEGUMENTARY: Intact, no rashes, no lesions, no erythema NEUROLOGIC: Cranial Nerves II-XII are intact, no focal deficits PSYCHIATRIC: Mood and affect are normal LABORATORY DATA: Please see below IMAGING: CT abd/pelvis: No change in moderate right hydroureteronephrosis, caused by a 4 mm stone at the right ureterovesical junction. Mild increase in perirenal and periureteral edema. ASSESSMENT: 40 y/o F with PMH hypothyroidism admitted for right hydroureteronephrosis 2/2 to ureterovesical kidney stone. PLAN: 1. Right hydroureteronephrosis 2/2 to ureterovesical kidney stone. S/p cysto, R ureteroscopy w/ basket extraction of stone, R ureteral stent placement. -Cr 1.5 --> 0.9, WBC wnl, UA neg -pain much improved -F/u with Urology as o/p in 2 weeks, PCP as regularly scheduled. -She has hematuria today, if worsens then she should report this. -Tylenol PRN for pain. 2. Acute kidney injury likely 2/2 obstructive kidney stone/hydronephrosis vs. ibuprofen use at home. Resolved. -Cr near normal at 0.9. -Avoid nephrotoxic meds like NSAIDs after discharge. -Encourage adequate PO intake with fluids. 3. Hypothyroidism -C/w levothyroxine home med 4. Migraine headaches -C/w home medications. DISPOSITION: Discharging home today with o/p f/u with Dr. Rosado in 2 weeks for stent removal. If hematuria worsens, she should let someone know at urology clinic. TIME SPENT ON DISCHARGE: 35 minutes. Vital Signs/I&Os Vital Signs Date Time Temp Pulse Resp B/P (MAP) Pulse Ox O2 Delivery O2 Flow Rate FiO2 05/29/20 06:00 97.6 75 17 103/62 (76) 96 Room Air I&O- Last 24 Hours up to 6 AM 05/29/20 06:00 Intake Total 2460 ml Output Total 600 ml Balance 1860 ml Laboratory Data Labs 24H Laboratory Tests 2 05/28/20 16:07: Coronavirus (COVID-19)(PCR) NEGATIVE 05/28/20 18:24: 05/29/20 05:36: Nucleated Red Blood Cells % (auto) 0.0, Anion Gap 5L, Glomerular Filtration Rate > 60.0, Calcium Level 7.7L, Total Bilirubin 0.6, Aspartate Amino Transf (AST/SGOT) 16, Alanine Aminotransferase (ALT/SGPT) 24, Alkaline Phosphatase 52, Total Protein 5.6L, Albumin 2.9#L, Albumin/Globulin Ratio 1.1L 05/29/20 12:46: Lab Scanned Report Miscellaneous Lab CBC/BMP Laboratory Tests 05/29/20 05:36 Discharge Medications Scheduled Levothyroxine Sodium (Levothyroxine Sodium) 75 Mcg Tablet, 75 MCG PO DAILY, (Reported) Paroxetine HCl (Paroxetine HCl) 20 Mg Tablet, 20 MG PO DAILY, (Reported) Zonisamide (Zonisamide) 50 Mg Capsule, 50 MG PO BID, (Reported) Scheduled PRN Acetaminophen (Acetaminophen) 500 Mg Tablet, 500 MG PO Q6H PRN for PAIN, (Reported) Rizatriptan Benzoate (Maxalt Assessment Specialist) 10 Mg Tab.rapdis, 10 MG PO DAILY PRN for OR GRAINE, (Reported) Sumatriptan Succinate (Sumatriptan Succinate) 4 Mg/0.5 Ml Cartridge, 4 MG SC for MIGRAINE, (Reported) Allergies Coded Allergies: ciprofloxacin (Verified Adverse Reaction, Mild, itching, 11/23/19) hydrocodone (Verified Adverse Reaction, Mild, ITCHING, 05/28/20) hydromorphone (Verified Adverse Reaction, Mild, ITCHING, 05/28/20) morphine (Verified Adverse Reaction, Mild, ITCHING, 05/28/20) Kizzy Good MD May 29, 2020 15:14
[2020-06-05 20:08] LABS: Size 3x3 mm (.)
== END 2020-05-29 11:24 | disposition home or self-care (01) ==
LOC: M ED 13:24 → M ED INP 13:25 → ENRESERV 16:36 → M MSPAV 19:42
PROVIDERS: ADMIT Internal Medicine; ATTEND Internal Medicine
DX: N13.2 Hydronephrosis with renal and ureteral calculous obstruction (principal); N17.9 Acute kidney failure, unspecified; E03.9 Hypothyroidism, unspecified; G43.909 Migraine, unspecified, not intractable, without status migrainosus; Z79.899 Other long term (current) drug therapy; Z88.1 Allergy status to other antibiotic agents; Z88.5 Allergy status to narcotic agent
CPT/HCPCS: 36415; 52332; 52352; 74176; 74420; 80047; 80053; 80076; 81001; 82365; 83690; 85025; 85027; 88300; 96361; 96365; 96372; 96375; 99284; C1769; C2617; J0131; J0690; J1100; J1170; J1644; J1885; J2250; J2270; J2405; J3010; Q9961; U0002

== ENCOUNTER 2020-06-04 17:22 | Emergency (ER) | payer OTHER ==
[~2020-06-04] VITALS: Ht 162.6 cm; Wt 59.6 kg
[~2020-06-04 17:22] MED LIST changes: +ACET-683 PO; +ESOM40CA35 PO; +MAXA10TA15 PO; +SUMA4INJ4 SC; +ZONI50CA11 PO
[2020-06-04] MEDS ORDERED: diphenhydrAMINE 50MG/ML VIAL (J1200) IV STA (18:00)
[2020-06-04] MEDS ORDERED: NS 1,000 ML IV ONE (18:00)
[2020-06-04] MEDS ORDERED: METOCLOPRAMIDE INJ 10MG/2ML VIAL (J2765 PER 1) IV ONE (18:00)
[2020-06-04] MEDS ORDERED: KETOROLAC 30 MG/ML 1ML VIAL IV ONE (18:00)
[2020-06-04 18:57] LABS: BASO # 0.1 10^3/uL (0.0-0.2); EOS # 0.3 10^3/uL (0.0-0.5); HEMOGLOBIN 14.4 g/dl (12.0-15.5); LYMPH # 2.2 10^3/uL (1.5-5.0); LYMPH % 21.9 % (24.0-44.0); MEAN CORPUSCULAR HGB CONC 32.7 g/dl (32.0-36.5); MEAN CORPUSCULAR VOLUME 100.7 fl (80.0-96.0); MONO # 0.7 10^3/uL (0.0-0.8); MONO % 7.3 % (0.0-5.0); NEUTROPHILS # 6.7 10^3/uL (1.5-8.5); NEUTROPHILS % 66.3 % (36.0-66.0); PLATELET COUNT, AUTOMATED 258 10^3/uL (150-450); RED BLOOD COUNT 4.37 10^6/uL (4.00-5.40); WHITE BLOOD COUNT 10.1 10^3/uL (4.0-10.0)
[2020-06-04 19:25] LABS: ERYTHROCYTE SEDIMENTATION RATE 7 mm/hr (0-20)
[2020-06-04 19:56] VITALS: BP 107/69
== END 2020-06-04 20:06 | disposition home or self-care (01) ==
LOC: M ED 17:22
DX: G43.909 Migraine, unspecified, not intractable, without status migrainosus (principal); F17.200 Nicotine dependence, unspecified, uncomplicated; Z88.1 Allergy status to other antibiotic agents; Z88.6 Allergy status to analgesic agent; Z79.899 Other long term (current) drug therapy
CPT/HCPCS: 80047; 83735; 84702; 85025; 85652; 96361; 96374; 96375; 99284; J1200; J1885; J2765

== ENCOUNTER → 2020-06-18 | Outpatient (CLI) | payer OTHER ==
--- NOTE | 2020-06-18 14:52 | REP ---
INDICATION: N20.1 RT URETERAL CALCULUS. COMPARISON: 05/10/2017. TECHNIQUE: Real-time sonographic evaluation of the kidneys is performed. FINDINGS: Renal cortical echogenicity pattern is normal bilaterally and contours are smooth. There is no evidence of hydronephrosis, cyst, mass, or calculus in either kidney. The right kidney measures 9.6 x 4.8 x 4.6 cm. Left renal dimensions are 9.8 x 4.4 x 5.0 cm. The urinary bladder is not distended. Resistive index right kidney 0.56 and left 0.63 with duplex Doppler evaluation. IMPRESSION: Normal urinary tract sonography. <Electronically signed by Terrence Diaz > 06/18/20 [id number]
== END ==
LOC: M PLAIMG 14:02
PROVIDERS: ATTEND Urology
DX: N20.1 Calculus of ureter (principal)

== ENCOUNTER 2020-07-03 09:45 | Emergency (ER) | payer OTHER ==
[~2020-07-03] VITALS: Ht 162.6 cm; Wt 59.2 kg
[2020-07-03 09:46] VITALS: BP 121/81
== END 2020-07-03 11:37 | disposition home or self-care (01) ==
LOC: M ED 09:45
DX: R09.81 Nasal congestion (principal); Z20.828 Contact with and (suspected) exposure to other viral communicable diseases; E03.9 Hypothyroidism, unspecified; F17.200 Nicotine dependence, unspecified, uncomplicated; Z88.1 Allergy status to other antibiotic agents; Z88.6 Allergy status to analgesic agent; Z79.890 Hormone replacement therapy; Z79.899 Other long term (current) drug therapy
CPT/HCPCS: 99282; U0003

== ENCOUNTER 2020-07-08 13:47 | Emergency (ER) | payer OTHER ==
[~2020-07-08] VITALS: Ht 162.6 cm; Wt 58.2 kg
[2020-07-08 14:09] VITALS: BP 109/68
--- NOTE | 2020-07-08 15:22 | REP ---
INDICATION: seizure. COMPARISON: Comparison CT study of the brain is from February 15, 2016.. TECHNIQUE: Helical scanning is acquired. 5 mm axial images were reformatted. Coronal MPR images were generated. FINDINGS: Bone window settings demonstrate an intact bony calvarium. There is no evidence of skull fracture or incidental bony calvarial lesion. The visualized paranasal sinuses appear clear. No intraorbital abnormality is seen. On soft tissue window setting images; the lateral, third, and fourth ventricles are normal in size and position. Diaz-white differentiation pattern is normal above and below the tentorium. There are is no evidence of intracranial hemorrhage. No mass, edema, infarction, or midline shift is seen. No extra-axial fluid collection is appreciated. IMPRESSION: Negative noncontrast head CT. <Electronically signed by Bhupinder Brice > 07/08/20 [id number]
[2020-07-08 15:50] LABS: BASO % 0.5 % (0.0-1.0); EOS # 0.1 10^3/uL (0.0-0.5); EOS % 0.9 % (0.0-3.0); HEMATOCRIT 44.5 % (36.0-47.0); LYMPH # 1.4 10^3/uL (1.5-5.0); LYMPH % 17.9 % (24.0-44.0); MEAN CORPUSCULAR HEMOGLOBIN 32.5 pg (27.0-33.0); MEAN CORPUSCULAR HGB CONC 33.7 g/dl (32.0-36.5); MEAN CORPUSCULAR VOLUME 96.5 fl (80.0-96.0); MONO # 0.4 10^3/uL (0.0-0.8); MONO % 5.4 % (0.0-5.0); NEUTROPHILS # 5.6 10^3/uL (1.5-8.5); NEUTROPHILS % 74.9 % (36.0-66.0); PLATELET COUNT, AUTOMATED 180 10^3/uL (150-450); RED BLOOD COUNT 4.61 10^6/uL (4.00-5.40); WHITE BLOOD COUNT 7.5 10^3/uL (4.0-10.0)
[2020-07-08 16:26] LABS: BLOOD UREA NITROGEN 16 MG/DL (7-18); CALCIUM LEVEL 9.3 MG/DL (8.5-10.1); CARBON DIOXIDE LEVEL 24 MEQ/L (21-32); CHLORIDE LEVEL 112 MEQ/L (98-107); FREE T4 1.13 NG/DL (0.76-1.46); GLOMERULAR FILTRATION RATE > 60.0 (>58); GLUCOSE, FASTING 81 MG/DL (70-100); HCG, SERUM QUALITATIVE NEGATIVE (NEGATIVE); POTASSIUM SERUM 4.2 MEQ/L (3.5-5.1); SODIUM LEVEL 139 MEQ/L (136-145)
--- NOTE | 2020-07-08 16:56 | REP ---
INDICATION: CHEST PAIN. COMPARISON: PA and lateral chest dated 10/21/2018. TECHNIQUE: Single AP view of the chest with the patient sitting performed portably. FINDINGS: The lung chung are clear. Cardiac size is normal. The crispin, mediastinum and skeletal structures are unremarkable. IMPRESSION: Essentially negative portable chest <Electronically signed by Terrence Penn > 07/08/20 [id number]
[2020-07-08 17:02] LABS: CK-MB VALUE MASS < 1.0 NG/ML (<3.6); CPK CREATINE PHOSPHOKINASE 110 U/L (26-192); MB/CK RELATIVE INDEX 0.91 (< OR =4); TROPONIN I < 0.02 NG/ML (< 0.10)
--- NOTE | 2020-07-09 05:48 | ECGEPIP ---
[facility] - ED Test Date: 2020-07-08 Pat Name: SHYAM SHAW Department: Room: - Gender: Female Vc++ [facility] 1980 Requested By: Josesito Scales Order Number: [id number] Reading MD: Josesito Collins Measurements Intervals [place] Rate: 74 P: 73 AR: 144 QRS: 75 QRSD: 89 T: 43 QT: 361 QTc: 401 Interpretive Statements SINUS RHYTHM POOR R WAVE PROGRESSION SIMILAR TO 07/29/19 Electronically Signed on 07-09-2020 5:48:35 EST by Jsoesito Collins
== END 2020-07-08 19:27 | disposition home or self-care (01) ==
LOC: M ED 13:47
DX: R56.9 Unspecified convulsions (principal); F17.200 Nicotine dependence, unspecified, uncomplicated; F41.9 Anxiety disorder, unspecified; F32.9 Major depressive disorder, single episode, unspecified; Z88.1 Allergy status to other antibiotic agents; Z88.6 Allergy status to analgesic agent; Z88.8 Allergy status to other drugs, medicaments and biological substances

== ENCOUNTER 2020-12-27 09:58 | Emergency (ER) | payer BC, OTHER ==
[~2020-12-27] VITALS: Ht 162.6 cm; Wt 63.6 kg
--- NOTE | 2020-12-27 11:07 | REP ---
INDICATION: trauma COMPARISON: 02/15/2016 TECHNIQUE: Axial noncontrast images from the skull base to the vertex with coronal reformations. This CT examination was performed using the following dose reduction techniques: Automated exposure control, adjustment of mA and/or kv according to the patient's size, and use of iterative reconstruction technique. FINDINGS: The ventricles, sulci, and cisterns are normal in position and appearance. Diaz-white differentiation is maintained. No acute intracranial hemorrhage, mass/mass effect, pathology or trauma/injury. No evidence for acute infarction. No extra-axial fluid collection. Calvarium is intact. Paranasal sinuses and mastoid air cells are clear. IMPRESSION: Normal noncontrast head CT. No evidence for acute intracranial pathology or trauma/injury. <Electronically signed by Kwabena Duncan > 12/27/20 [id number]
--- NOTE | 2020-12-27 11:08 | REP ---
INDICATION: trauma COMPARISON: None. TECHNIQUE: Axial noncontrast images from the skull base to the thoracic inlet with coronal and sagittal re-formations This CT examination was performed using the following dose reduction techniques: Automated exposure control, adjustment of mA and/or kv according to the patient's size, and use of iterative reconstruction technique. FINDINGS: Normal alignment and lordosis is maintained. Cervical vertebral bodies including transverse processes and spinous processes are intact and there is no evidence for acute fracture / compression injury or subluxation. Spinal canal is patent. Posterior elements are intact. Paravertebral soft tissues are normal. IMPRESSION: Normal age-appropriate noncontrast cervical spine CT. No evidence for acute pathology or trauma/injury. <Electronically signed by Kwabena Duncan > 12/27/20 [id number]
[2020-12-27 11:53] VITALS: BP 121/79
== END 2020-12-27 12:04 | disposition home or self-care (01) ==
LOC: M ED 09:58
DX: S00.03XA Contusion of scalp, initial encounter (principal); W11.XXXA Fall on and from ladder, initial encounter; Y92.9 Unspecified place or not applicable; Y93.9 Activity, unspecified; Y99.0 Civilian activity done for income or pay; Z88.1 Allergy status to other antibiotic agents; Z88.6 Allergy status to analgesic agent; Z79.899 Other long term (current) drug therapy

== ENCOUNTER 2022-01-19 11:57 | Emergency (ER) | payer BC, OTHER, SELFPAY ==
[~2022-01-19] VITALS: Ht 162.6 cm; Wt 61.4 kg
[~2022-01-19 11:57] MED LIST changes: -FLUO10CA16 PO; +FLUO10CA18 PO; +OMEP40CA4 PO; -OMEP40CA97 PO; +SUMA4CAR SC; -SUMA4INJ4 SC
[2022-01-19 15:17] LABS: HEMATOCRIT 43.7 % (36.0-47.0); HEMOGLOBIN 14.8 g/dl (12.0-15.5); MEAN CORPUSCULAR HEMOGLOBIN 32.7 pg (27.0-33.0); MEAN CORPUSCULAR HGB CONC 33.9 g/dl (32.0-36.5); MEAN CORPUSCULAR VOLUME 96.5 fl (80.0-96.0); PLATELET COUNT, AUTOMATED 192 10^3/uL (150-450); RED BLOOD COUNT 4.53 10^6/uL (4.00-5.40)
[2022-01-19 15:49] LABS: ALBUMIN 3.9 GM/DL (3.2-5.2); ALT/SGPT 18 U/L (12-78); BILIRUBIN,DIRECT 0.1 MG/DL (0.0-0.2); BILIRUBIN,TOTAL 0.3 MG/DL (0.2-1.0); BLOOD UREA NITROGEN 13 MG/DL (7-18); CALCIUM LEVEL 8.4 MG/DL (8.5-10.1); CARBON DIOXIDE LEVEL 27 MEQ/L (21-32); CHLORIDE LEVEL 108 MEQ/L (98-107); CREATININE FOR GFR 0.72 MG/DL (0.55-1.30); ETHYL ALCOHOL (ETHANOL) 0.006 % (0.000-0.010); GLOMERULAR FILTRATION RATE > 60.0 (>58); GLUCOSE, FASTING 83 MG/DL (70-100); POTASSIUM SERUM 4.2 MEQ/L (3.5-5.1); SALICYLATE LEVEL 3.7 MG/DL (5.0-30.0); SODIUM LEVEL 140 MEQ/L (136-145); THYROID STIMULATING HORMONE 0.035 uIU/ML (0.358-3.740); TOTAL PROTEIN 6.9 GM/DL (6.4-8.2)
[2022-01-19 15:53] LABS: HCG, SERUM QUALITATIVE NEGATIVE (NEGATIVE); RSV AMPLIFICATION NEGATIVE (NEGATIVE)
[2022-01-19 15:54] LABS: AMPHETAMINES LEVEL URINE NEGATIVE (NEGATIVE); BARBITURATES URINE NEGATIVE (NEGATIVE); BENZODIAZEPINES URINE NEGATIVE (NEGATIVE); CANNABINOIDS URINE NEGATIVE (NEGATIVE); COCAINE METABOLITE URINE NEGATIVE (NEGATIVE); METHADONE URINE NEGATIVE (NEGATIVE); OPIATES URINE NEGATIVE (NEGATIVE); PHENCYCLIDINE URINE NEGATIVE (NEGATIVE)
[2022-01-19 17:47] LABS: ACETAMINOPHEN LEVEL < 2.0 UG/ML (0.0-30.0)
[2022-01-19 20:45] VITALS: BP 102/71
== END 2022-01-19 21:17 | disposition home or self-care (01) ==
LOC: M ED 11:57
DX: F43.0 Acute stress reaction (principal); R56.9 Unspecified convulsions; F32.A Depression, unspecified; F17.200 Nicotine dependence, unspecified, uncomplicated; Z91.51 Personal history of suicidal behavior; Z88.1 Allergy status to other antibiotic agents; Z88.5 Allergy status to narcotic agent; Z79.899 Other long term (current) drug therapy

== ENCOUNTER 2022-01-25 07:47 | Emergency (ER) | payer OTHER ==
[2022-01-25] MEDS ORDERED: NS 1,000 ML IV ONE (07:55)
[2022-01-25] MEDS ORDERED: diazePAM 10MG/2ML SYRINGE (J3360 PER 5MG) IV ONE (07:55)
[2022-01-25 08:24] LABS: VENOUS BASE EXCESS -2.8 (-2.0-2.0); VENOUS HCO3 26.7 MEQ/L (23.0-27.0); VENOUS O2 SATURATION 64.2 % (60.0-80.0); VENOUS PARTIAL PRESSURE O2 33.8 mmHg (30.0-50.0); VENOUS PH 7.225 UNITS (7.330-7.430); VENOUS STANDARD HCO3 21.3 MEQ/L; VENOUS TOTAL CO2 28.7 MEQ/L (24.0-28.0)
[2022-01-25 08:28] LABS: BASO # 0.1 10^3/uL (0.0-0.2); BASO % 0.9 % (0.0-1.0); EOS # 0.1 10^3/uL (0.0-0.5); EOS % 0.7 % (0.0-3.0); HEMATOCRIT 47.6 % (36.0-47.0); HEMOGLOBIN 15.9 g/dl (12.0-15.5); LYMPH # 3.6 10^3/uL (1.5-5.0); LYMPH % 25.4 % (24.0-44.0); MEAN CORPUSCULAR HEMOGLOBIN 32.5 pg (27.0-33.0); MEAN CORPUSCULAR HGB CONC 33.4 g/dl (32.0-36.5); MEAN CORPUSCULAR VOLUME 97.3 fl (80.0-96.0); MONO % 6.8 % (2.0-8.0); NEUTROPHILS # 9.2 10^3/uL (1.5-8.5); NEUTROPHILS % 65.9 % (36.0-66.0); PLATELET COUNT, AUTOMATED 266 10^3/uL (150-450); RED BLOOD COUNT 4.89 10^6/uL (4.00-5.40)
[2022-01-25 09:02] LABS: HCG, SERUM QUALITATIVE NEGATIVE (NEGATIVE)
[2022-01-25 09:06] LABS: OSMOLALITY SERUM 331 MOSM/KG (275-295)
[2022-01-25 09:10] LABS: ACETAMINOPHEN LEVEL < 2.0 UG/ML (10.0-30.0); ALBUMIN 4.6 GM/DL (3.2-5.2); ALT/SGPT 26 U/L (12-78); BILIRUBIN,DIRECT 0.2 MG/DL (0.0-0.2); BILIRUBIN,TOTAL 0.3 MG/DL (0.2-1.0); BLOOD UREA NITROGEN 8 MG/DL (7-18); CALCIUM LEVEL 9.4 MG/DL (8.5-10.1); CARBON DIOXIDE LEVEL 26 MEQ/L (21-32); CHLORIDE LEVEL 107 MEQ/L (98-107); CREATININE FOR GFR 0.81 MG/DL (0.55-1.30); ETHYL ALCOHOL (ETHANOL) 0.151 % (0.000-0.010); GLOMERULAR FILTRATION RATE > 60.0 (>58); GLUCOSE, FASTING 103 MG/DL (70-100); SALICYLATE LEVEL 4.6 MG/DL (5.0-30.0); SODIUM LEVEL 143 MEQ/L (136-145); THYROID STIMULATING HORMONE 0.129 uIU/ML (0.358-3.740); TOTAL PROTEIN 8.6 GM/DL (6.4-8.2)
[2022-01-25] MEDS ORDERED: ACETAMINOPHEN 500 MG TAB PO ONE (09:25)
[2022-01-25] MEDS ORDERED: METOCLOPRAMIDE 10MG TAB PO ONE (10:45)
[2022-01-25 11:35] VITALS: BP 145/83
== END 2022-01-25 11:47 | disposition home or self-care (01) ==
LOC: M ED 07:47
DX: F10.19 Alcohol abuse with unspecified alcohol-induced disorder (principal); F14.10 Cocaine abuse, uncomplicated; F32.A Depression, unspecified; F17.200 Nicotine dependence, unspecified, uncomplicated; Z88.6 Allergy status to analgesic agent; Z88.1 Allergy status to other antibiotic agents
CPT/HCPCS: 80048; 80076; 80143; 82077; 82550; 82803; 83930; 84443; 84703; 85025; 93005; 93041; 96361; 96374; 99284; J3360

== ENCOUNTER 2022-03-17 10:43 | Emergency (ER) | payer OTHER ==
[~2022-03-17] VITALS: Ht 162.6 cm; Wt 59.1 kg
[2022-03-17] MEDS ORDERED: NS 1,000 ML IV ONE (11:45)
[2022-03-17 11:52] LABS: BACTERIA, URINE SMALL AMOUNT; HYALINE CAST, URINE NONE SEEN /lpf (0-1); MUCUS, URINE SMALL AMOUNT (NEGATIVE)
[2022-03-17 11:53] LABS: AMORPHOUS SEDIMENT, URINE MOD AMOUNT (NEGATIVE); SQUAMOUS EPITHELIAL CELL URINE MOD AMOUNT /hpf (SMALL AMT)
[2022-03-17 11:58] LABS: BASO # 0.1 10^3/uL (0.0-0.2); BASO % 1.2 % (0.0-1.0); EOS # 0.3 10^3/uL (0.0-0.5); EOS % 3.9 % (0.0-3.0); HEMATOCRIT 43.8 % (36.0-47.0); HEMOGLOBIN 14.6 g/dl (12.0-15.5); MEAN CORPUSCULAR HEMOGLOBIN 32.6 pg (27.0-33.0); MEAN CORPUSCULAR HGB CONC 33.3 g/dl (32.0-36.5); MEAN CORPUSCULAR VOLUME 97.8 fl (80.0-96.0); MONO # 0.6 10^3/uL (0.0-0.8); MONO % 6.8 % (2.0-8.0); NEUTROPHILS # 5.4 10^3/uL (1.5-8.5); NEUTROPHILS % 63.9 % (36.0-66.0); PLATELET COUNT, AUTOMATED 217 10^3/uL (150-450); RED BLOOD COUNT 4.48 10^6/uL (4.00-5.40); WHITE BLOOD COUNT 8.4 10^3/uL (4.0-10.0)
[2022-03-17 12:08] LABS: AMPHETAMINES LEVEL URINE NEGATIVE (NEGATIVE); BARBITURATES URINE NEGATIVE (NEGATIVE); BENZODIAZEPINES URINE NEGATIVE (NEGATIVE); CANNABINOIDS URINE POSITIVE (NEGATIVE); COCAINE METABOLITE URINE NEGATIVE (NEGATIVE); METHADONE URINE NEGATIVE (NEGATIVE); OPIATES URINE NEGATIVE (NEGATIVE); PHENCYCLIDINE URINE NEGATIVE (NEGATIVE)
[2022-03-17 12:46] LABS: BLOOD UREA NITROGEN 12 MG/DL (7-18); CALCIUM LEVEL 9.2 MG/DL (8.5-10.1); CARBON DIOXIDE LEVEL 26 MEQ/L (21-32); CHLORIDE LEVEL 109 MEQ/L (98-107); CREATININE FOR GFR 0.68 MG/DL (0.55-1.30); ETHYL ALCOHOL (ETHANOL) < 0.003 % (0.000-0.010); GLOMERULAR FILTRATION RATE > 60.0 (>58); GLUCOSE, FASTING 88 MG/DL (70-100); POTASSIUM SERUM 4.3 MEQ/L (3.5-5.1); SODIUM LEVEL 138 MEQ/L (136-145); THYROID STIMULATING HORMONE 0.247 uIU/ML (0.358-3.740)
[2022-03-17 12:46] LABS: CK-MB VALUE MASS 1.4 NG/ML (<3.6); MB/CK RELATIVE INDEX 1.1 (< OR =4)
[2022-03-17 13:27] LABS: RSV AMPLIFICATION NEGATIVE (NEGATIVE)
[2022-03-17] MEDS ORDERED: AZITHROMYCIN 250MG TABLET PO ONE (14:55)
[2022-03-17] MEDS ORDERED: CEFDINIR 300 MG CAP (OMNICEF) PO ONE (14:55)
[2022-03-17 15:07] VITALS: BP 142/89
[2022-03-17] MEDS ORDERED: AZIT-12 PO (15:10)
[2022-03-17] MEDS ORDERED: CEFD300C PO (15:10)
== END 2022-03-17 15:18 | disposition home or self-care (01) ==
LOC: M ED 10:43 → EDBD 10:43 → M ED 15:18
DX: R07.9 Chest pain, unspecified (principal); J18.9 Pneumonia, unspecified organism; I45.10 Unspecified right bundle-branch block; F32.A Depression, unspecified; F17.200 Nicotine dependence, unspecified, uncomplicated; Z88.1 Allergy status to other antibiotic agents; Z88.6 Allergy status to analgesic agent; Z88.5 Allergy status to narcotic agent; Z79.899 Other long term (current) drug therapy